=== PATIENT | male | born 1985 | race Caucasian/White ===

== ENCOUNTER 2016-07-03 03:08 | Emergency (ER) | payer MEDICAID ==
[~2016-07-03 03:08] MED LIST: CARAFATE1 G/10 ML PO; CATAPRES0.1 MG PO; HYDROCODON-ACE1 EAC7 PO; HYDROCODONE-APA1 TAB PO; KLONOPIN1 MG PO; LOPRESSOR25 MG PO; NORVASC10 MG PO; NORVASC5 MG PO; PRILOSEC10 M1 PO; PRILOSEC20 MG PO; ROBAXIN500 MG PO; SEROQUEL25 MG PO
== END 2016-07-03 04:48 | disposition home or self-care (01) ==
LOC: D.ER 03:08
DX: M62.838 Other muscle spasm (principal); Z76.5 Malingerer [conscious simulation]; F41.0 Panic disorder [episodic paroxysmal anxiety]; Z20.3 Contact with and (suspected) exposure to rabies

== ENCOUNTER 2016-07-07 12:16 | Emergency (ER) | payer MEDICAID | END 2016-07-07 13:09 | disposition home or self-care (01) | LOC: D.ER 12:16 | DX: F41.9 Anxiety disorder, unspecified (principal); M54.9 Dorsalgia, unspecified; I10 Essential (primary) hypertension ==

== ENCOUNTER 2016-07-08 10:19 | Emergency (ER) | payer MEDICAID | END 2016-07-08 12:14 | disposition home or self-care (01) | LOC: D.ER 10:19 | DX: I10 Essential (primary) hypertension (principal) ==

== ENCOUNTER 2016-07-21 23:14 | Emergency (ER) | payer MEDICAID | END 2016-07-22 00:50 | disposition home or self-care (01) | LOC: D.ER 23:14 | DX: M54.9 Dorsalgia, unspecified (principal); I10 Essential (primary) hypertension; F17.200 Nicotine dependence, unspecified, uncomplicated ==

== ENCOUNTER 2016-07-30 13:55 | Emergency (ER) | payer MEDICAID ==
[2016-07-30 15:19] LABS: BASOPHILS 0.1 % (0.0-2.0); EOSINOPHILS 0.1 % (0-7); HEMATOCRIT 51.4 % (42.0-54.0); HEMOGLOBIN 18.5 g/dL (13.5-17.5); IMMATURE GRANULOCYTES 0.4 % (0-5); LYMPHOCYTES 5.8 % (15-50); MCH 32.2 pg (26.0-34.0); MCV 89.5 fL (80.0-100.0); MEAN PLATELET VOLUME 10.8 fL (7.4-10.4); MONOCYTES 6.5 % (2-11); NEUTROPHILS 87.1 % (40-80); PLATELET COUNT 212 10x3/uL (130-400); RBC 5.74 10x6/uL (4.20-6.10); WBC 19.6 10x3/uL (4.8-10.8)
[2016-07-30 15:30] LABS: ALBUMIN 5.1 g/dL (3.4-5.0); ANION GAP 19.5 mmol/L (8-16); BILIRUBIN - TOTAL 0.33 mg/dL (0.2-1.3); CALCIUM 10.7 mg/dL (8.5-10.1); CARBON DIOXIDE 25.8 mmol/L (21.0-32.0); CREATININE - SERUM 1.9 mg/dL (0.6-1.3); POTASSIUM - SERUM 3.3 mmol/L (3.5-5.1); PROTEIN - SERUM 9.6 g/dL (6.4-8.2)
[2016-07-30 17:00] LABS: MAGNESIUM - SERUM 3.4 mg/dL (1.8-2.4)
== END 2016-07-30 16:45 | disposition home or self-care (01) ==
LOC: D.ER 13:55
PROVIDERS: Emergency Medicine
DX: R56.9 Unspecified convulsions (principal); I10 Essential (primary) hypertension; F17.200 Nicotine dependence, unspecified, uncomplicated

== ENCOUNTER 2016-08-06 12:48 | Emergency (ER) | payer SELFPAY | END 2016-08-06 16:16 | disposition home or self-care (01) | LOC: D.ER 12:48 | DX: Z76.0 Encounter for issue of repeat prescription (principal); I10 Essential (primary) hypertension ==

== ENCOUNTER 2016-08-21 22:21 | Emergency (ER) | payer MEDICAID | END 2016-08-22 01:29 | disposition home or self-care (01) | LOC: D.ER 22:21 | DX: K02.9 Dental caries, unspecified (principal); K08.89 Other specified disorders of teeth and supporting structures; S02.5XXA Fracture of tooth (traumatic), initial encounter for closed fracture; X58.XXXA Exposure to other specified factors, initial encounter; Y93.89 Activity, other specified; Y92.89 Other specified places as the place of occurrence of the external cause; I10 Essential (primary) hypertension ==

== ENCOUNTER → 2016-08-26 21:04 | Emergency (ER) | payer MEDICAID | END | disposition left against medical advice (07) | LOC: D.ER 21:04 | DX: Z02.9 Encounter for administrative examinations, unspecified (principal) ==

== ENCOUNTER 2016-08-26 22:15 | Emergency (ER) | payer MEDICAID | END 2016-08-27 00:30 | disposition home or self-care (01) | LOC: D.ER 22:15 | DX: K02.9 Dental caries, unspecified (principal); K08.89 Other specified disorders of teeth and supporting structures; I10 Essential (primary) hypertension ==

== ENCOUNTER 2016-08-30 14:24 | Emergency (ER) | payer MEDICAID ==
[2016-08-30 15:32] LABS: BASOPHILS 0.1 % (0.0-2.0); EOSINOPHILS 0.1 % (0-7); HEMATOCRIT 49.8 % (42.0-54.0); HEMOGLOBIN 17.4 g/dL (13.5-17.5); IMMATURE GRANULOCYTES 0.4 % (0-5); LYMPHOCYTES 8.2 % (15-50); MCH 31.8 pg (26.0-34.0); MCHC 34.9 g/dL (31.0-37.0); MCV 90.9 fL (80.0-100.0); MEAN PLATELET VOLUME 10.1 fL (7.4-10.4); MONOCYTES 7.8 % (2-11); NEUTROPHILS 83.4 % (40-80); PLATELET COUNT 208 10x3/uL (130-400); RBC 5.48 10x6/uL (4.20-6.10); RDW 12.6 % (11.5-14.5); WBC 19.3 10x3/uL (4.8-10.8)
[2016-08-30 15:47] LABS: APTT 25.9 SECONDS (22.8-39.4); INR 0.93 (0.85-1.17); PROTIME 12.3 SECONDS (11.6-15.0)
[2016-08-31 00:21] LABS: APPEARANCE HAZY (CLEAR); BILIRUBIN 1+ (NEGATIVE); COLOR DK YELLOW (YELLOW); GLUCOSE 50 mg/dL (NEGATIVE); KETONE SMALL mg/dL (NEGATIVE); LEUKOCYTE ESTERASE TRACE (NEGATIVE); NITRITE NEGATIVE (NEGATIVE); PROTEIN TRACE mg/dL (NEGATIVE); UROBILINOGEN NORMAL (NORMAL)
[2016-08-31 00:27] LABS: ALBUMIN 4.6 g/dL (3.4-5.0); ANION GAP 15.9 mmol/L (8-16); BILIRUBIN - TOTAL 0.33 mg/dL (0.2-1.3); CARBON DIOXIDE 31.4 mmol/L (21.0-32.0); CREATININE - SERUM 1.4 mg/dL (0.6-1.3); POTASSIUM - SERUM 3.3 mmol/L (3.5-5.1)
[2016-08-31 00:27] LABS: UDS - AMPHET NEGATIVE QUAL (NEGATIVE); UDS - BARB NEGATIVE QUAL (NEGATIVE); UDS - BENZO POSITIVE QUAL (NEGATIVE); UDS - COCAINE NEGATIVE QUAL (NEGATIVE); UDS - METH NEGATIVE QUAL (NEGATIVE); UDS - OPIATE POSITIVE QUAL (NEGATIVE); UDS - PCP NEGATIVE QUAL (NEGATIVE); UDS - THC POSITIVE QUAL (NEGATIVE)
[2016-08-31 00:44] LABS: AMORPHOUS SEDIMENT >1+ /lpf (NONE SEEN); BACTERIA MANY /hpf (NONE SEEN); EPITHELIAL CELLS 0-5 /hpf (0-5); GRANULAR CAST 0-5 /lpf (NONE SEEN); MUCUS >1+ /lpf (NONE SEEN); RED CELLS - URINE 0-5 /hpf (0-5); WAXY CAST OCC /lpf (NONE SEEN); WHITE CELLS - URINE 0-5 /hpf (0-5)
== END 2016-08-31 01:45 | disposition home or self-care (01) ==
LOC: D.ER 14:24
PROVIDERS: Emergency Medicine
DX: K29.00 Acute gastritis without bleeding (principal); R10.13 Epigastric pain; I10 Essential (primary) hypertension; F17.200 Nicotine dependence, unspecified, uncomplicated; R00.0 Tachycardia, unspecified

== ENCOUNTER 2016-09-08 11:49 | Emergency (ER) | payer MEDICAID | END 2016-09-08 14:05 | disposition home or self-care (01) | LOC: D.ER 11:49 | DX: I10 Essential (primary) hypertension (principal); K27.9 Peptic ulcer, site unspecified, unspecified as acute or chronic, without hemorrhage or perforation; R11.2 Nausea with vomiting, unspecified; F41.9 Anxiety disorder, unspecified; G89.29 Other chronic pain ==

== ENCOUNTER 2016-09-14 20:12 | Emergency (ER) | payer MEDICAID | END 2016-09-14 21:17 | disposition home or self-care (01) | LOC: D.ER 20:12 | DX: K21.9 Gastro-esophageal reflux disease without esophagitis (principal); M54.9 Dorsalgia, unspecified ==

== ENCOUNTER 2016-09-20 10:35 | Emergency (ER) | payer MEDICAID | END 2016-09-20 12:03 | disposition home or self-care (01) | LOC: D.ER 10:35 | DX: R11.10 Vomiting, unspecified (principal); R10.9 Unspecified abdominal pain; G89.29 Other chronic pain; I10 Essential (primary) hypertension; K27.9 Peptic ulcer, site unspecified, unspecified as acute or chronic, without hemorrhage or perforation; K21.9 Gastro-esophageal reflux disease without esophagitis; F17.200 Nicotine dependence, unspecified, uncomplicated ==

== ENCOUNTER 2016-10-17 15:01 | Emergency (ER) | payer MEDICAID | END 2016-10-17 18:37 | disposition home or self-care (01) | LOC: D.ER 15:01 | DX: Z76.0 Encounter for issue of repeat prescription (principal); F17.200 Nicotine dependence, unspecified, uncomplicated; I10 Essential (primary) hypertension; F41.9 Anxiety disorder, unspecified ==

== ENCOUNTER 2016-10-18 08:18 | Emergency (ER) | payer MEDICAID | END 2016-10-18 09:05 | disposition home or self-care (01) | LOC: D.ER 08:18 | DX: K02.9 Dental caries, unspecified (principal); K08.89 Other specified disorders of teeth and supporting structures; F17.200 Nicotine dependence, unspecified, uncomplicated ==

== ENCOUNTER 2016-10-19 21:07 | Emergency (ER) | payer MEDICAID | END 2016-10-19 21:41 | disposition left against medical advice (07) | LOC: D.ER 21:07 | DX: K08.89 Other specified disorders of teeth and supporting structures (principal) ==

== ENCOUNTER 2016-10-24 23:23 | Emergency (ER) | payer MEDICAID | END 2016-10-25 01:04 | disposition home or self-care (01) | LOC: D.ER 23:23 | DX: K02.9 Dental caries, unspecified (principal); K08.89 Other specified disorders of teeth and supporting structures; S02.5XXA Fracture of tooth (traumatic), initial encounter for closed fracture; X58.XXXA Exposure to other specified factors, initial encounter; Y93.89 Activity, other specified; Y92.89 Other specified places as the place of occurrence of the external cause; F17.200 Nicotine dependence, unspecified, uncomplicated; I10 Essential (primary) hypertension; G40.909 Epilepsy, unspecified, not intractable, without status epilepticus; K27.9 Peptic ulcer, site unspecified, unspecified as acute or chronic, without hemorrhage or perforation ==

== ENCOUNTER 2016-10-26 14:35 | Emergency (ER) | payer MEDICAID | END 2016-10-26 14:36 | disposition left against medical advice (07) | LOC: D.ER 14:35 | DX: K08.89 Other specified disorders of teeth and supporting structures (principal) ==

== ENCOUNTER 2016-10-26 21:18 | Emergency (ER) | payer MEDICAID | END 2016-10-27 04:00 | disposition home or self-care (01) | LOC: D.ER 21:18 | DX: K02.9 Dental caries, unspecified (principal); K08.89 Other specified disorders of teeth and supporting structures; K21.9 Gastro-esophageal reflux disease without esophagitis; I10 Essential (primary) hypertension; K27.9 Peptic ulcer, site unspecified, unspecified as acute or chronic, without hemorrhage or perforation; G40.909 Epilepsy, unspecified, not intractable, without status epilepticus ==

== ENCOUNTER 2016-10-27 10:54 | Emergency (ER) | payer MEDICAID | END 2016-10-27 11:30 | disposition left against medical advice (07) | LOC: D.ER 10:54 | DX: Z76.5 Malingerer [conscious simulation] (principal); F17.200 Nicotine dependence, unspecified, uncomplicated ==

== ENCOUNTER 2016-10-29 20:06 | Emergency (ER) | payer MEDICAID | END 2016-10-29 21:57 | disposition home or self-care (01) | LOC: D.ER 20:06 | DX: G89.29 Other chronic pain (principal); K21.9 Gastro-esophageal reflux disease without esophagitis; I10 Essential (primary) hypertension; K27.9 Peptic ulcer, site unspecified, unspecified as acute or chronic, without hemorrhage or perforation; F17.200 Nicotine dependence, unspecified, uncomplicated ==

== ENCOUNTER 2016-10-31 10:31 | Emergency (ER) | payer MEDICAID | END 2016-10-31 11:19 | disposition home or self-care (01) | LOC: D.ER 10:31 | DX: G89.29 Other chronic pain (principal); K21.9 Gastro-esophageal reflux disease without esophagitis; I10 Essential (primary) hypertension; K27.9 Peptic ulcer, site unspecified, unspecified as acute or chronic, without hemorrhage or perforation; F17.200 Nicotine dependence, unspecified, uncomplicated ==

== ENCOUNTER 2016-11-30 09:51 | Emergency (ER) | payer MEDICAID | END 2016-11-30 11:08 | disposition home or self-care (01) | LOC: D.ER 09:51 | DX: S29.012A Strain of muscle and tendon of back wall of thorax, initial encounter (principal); X58.XXXA Exposure to other specified factors, initial encounter; Y93.89 Activity, other specified; Y92.89 Other specified places as the place of occurrence of the external cause; F17.200 Nicotine dependence, unspecified, uncomplicated ==

== ENCOUNTER 2016-12-01 00:06 | Emergency (ER) | payer OTHER ==
[2016-12-01 00:47] LABS: UDS - AMPHET NEGATIVE QUAL (NEGATIVE); UDS - BARB NEGATIVE QUAL (NEGATIVE); UDS - BENZO POSITIVE QUAL (NEGATIVE); UDS - COCAINE NEGATIVE QUAL (NEGATIVE); UDS - METH NEGATIVE QUAL (NEGATIVE); UDS - OPIATE NEGATIVE QUAL (NEGATIVE); UDS - PCP NEGATIVE QUAL (NEGATIVE); UDS - THC NEGATIVE QUAL (NEGATIVE)
== END 2016-12-01 01:15 | disposition home or self-care (01) ==
LOC: D.ER 00:06
PROVIDERS: Family Medicine
DX: M79.1 Myalgia (principal); K21.9 Gastro-esophageal reflux disease without esophagitis; I10 Essential (primary) hypertension; K27.9 Peptic ulcer, site unspecified, unspecified as acute or chronic, without hemorrhage or perforation

== ENCOUNTER 2016-12-02 03:29 | Emergency (ER) | payer MEDICAID | END 2016-12-02 04:17 | disposition home or self-care (01) | LOC: D.ER 03:29 | DX: K08.89 Other specified disorders of teeth and supporting structures (principal); K21.9 Gastro-esophageal reflux disease without esophagitis; I10 Essential (primary) hypertension; K27.9 Peptic ulcer, site unspecified, unspecified as acute or chronic, without hemorrhage or perforation ==

== ENCOUNTER 2016-12-03 11:17 | Emergency (ER) | payer MEDICAID ==
[2016-12-03 12:53] LABS: BASOPHILS 0.1 % (0-2); EOSINOPHILS 0.5 % (0-7); HEMATOCRIT 36.9 % (42.0-54.0); IMMATURE GRANULOCYTES 0.2 % (0-5); LYMPHOCYTES 24.9 % (15-50); MCH 31.3 pg (26.0-34.0); MCHC 35.2 g/dL (31.0-37.0); MCV 88.7 fL (80.0-100.0); MEAN PLATELET VOLUME 10.2 fL (7.4-10.4); MONOCYTES 9.5 % (2-11); NEUTROPHILS 64.8 % (40-80); PLATELET COUNT 190 10x3/uL (130-400); RBC 4.16 10x6/uL (4.20-6.10); RDW 13.5 % (11.5-14.5); WBC 13.7 10x3/uL (4.8-10.8)
== END 2016-12-03 13:30 | disposition home or self-care (01) ==
LOC: D.ER 11:17
PROVIDERS: Nurse Practitioner Family
DX: K04.7 Periapical abscess without sinus (principal); K21.9 Gastro-esophageal reflux disease without esophagitis; I10 Essential (primary) hypertension; K27.9 Peptic ulcer, site unspecified, unspecified as acute or chronic, without hemorrhage or perforation; F17.200 Nicotine dependence, unspecified, uncomplicated

== ENCOUNTER 2016-12-04 11:46 | Emergency (ER) | payer MEDICAID | END 2016-12-04 13:21 | disposition home or self-care (01) | LOC: D.ER 11:46 | DX: L02.01 Cutaneous abscess of face (principal); K21.9 Gastro-esophageal reflux disease without esophagitis; I10 Essential (primary) hypertension; K27.9 Peptic ulcer, site unspecified, unspecified as acute or chronic, without hemorrhage or perforation; F17.200 Nicotine dependence, unspecified, uncomplicated ==

== ENCOUNTER 2016-12-08 16:39 | Emergency (ER) | payer MEDICAID | END 2016-12-08 21:58 | disposition home or self-care (01) | LOC: D.ER 16:39 | DX: K04.7 Periapical abscess without sinus (principal); F17.200 Nicotine dependence, unspecified, uncomplicated ==

== ENCOUNTER 2016-12-09 23:57 | Emergency (ER) | payer MEDICAID ==
[2016-12-10 01:26] LABS: BASOPHILS 0.2 % (0-2); EOSINOPHILS 0.9 % (0-7); HEMATOCRIT 31.5 % (42.0-54.0); IMMATURE GRANULOCYTES 0.1 % (0-5); LYMPHOCYTES 26.2 % (15-50); MCH 30.4 pg (26.0-34.0); MCHC 34.9 g/dL (31.0-37.0); MEAN PLATELET VOLUME 9.4 fL (7.4-10.4); MONOCYTES 13.5 % (2-11); NEUTROPHILS 59.1 % (40-80); PLATELET COUNT 191 10x3/uL (130-400); RBC 3.62 10x6/uL (4.20-6.10); RDW 13.1 % (11.5-14.5); WBC 9.1 10x3/uL (4.8-10.8)
[2016-12-10 01:45] LABS: ALBUMIN 3.2 g/dL (3.4-5.0); ALKALINE PHOSPHATASE 66 U/L (46-116); ALT (SGPT) 25 U/L (10-68); CALC OSMOLALITY 277 mosm/kg (275-300); CALCIUM 8.3 mg/dL (8.5-10.1); CARBON DIOXIDE 23.3 mmol/L (21.0-32.0); CHLORIDE - SERUM 102 mmol/L (98-107); CREATININE - SERUM 1.1 mg/dL (0.6-1.3); GLUCOSE 102 mg/dL (74-106); POTASSIUM - SERUM 3.2 mmol/L (3.5-5.1); PROTEIN - SERUM 6.9 g/dL (6.4-8.2); SODIUM 139 mmol/L (136-145); UREA NITROGEN 12 mg/dL (7-18); eGFR NON AFRICAN AMERICAN 83 mL/min (90-120)
== END 2016-12-10 02:02 | disposition home or self-care (01) ==
LOC: D.ER 23:57
PROVIDERS: Family Medicine
DX: K04.7 Periapical abscess without sinus (principal); K02.9 Dental caries, unspecified; I10 Essential (primary) hypertension

== ENCOUNTER 2016-12-12 12:54 | Emergency (ER) | payer MEDICAID | END 2016-12-12 14:00 | disposition home or self-care (01) | LOC: D.ER 12:54 | DX: K04.7 Periapical abscess without sinus (principal); I10 Essential (primary) hypertension ==

== ENCOUNTER 2016-12-17 16:24 | Emergency (ER) | payer MEDICAID | END 2016-12-17 19:14 | disposition home or self-care (01) | LOC: D.ER 16:24 | DX: S02.5XXA Fracture of tooth (traumatic), initial encounter for closed fracture (principal); F17.200 Nicotine dependence, unspecified, uncomplicated ==

== ENCOUNTER → 2016-12-20 14:05 | Emergency (ER) | payer MEDICAID | END | disposition left against medical advice (07) | LOC: D.ER 14:05 | DX: R60.0 Localized edema (principal) ==

== ENCOUNTER 2017-01-24 11:49 | Emergency (ER) | payer MEDICAID | END 2017-01-24 12:05 | disposition left against medical advice (07) | LOC: D.ER 11:49 | DX: M54.5 Low back pain (principal) ==

== ENCOUNTER 2017-01-27 15:45 | Emergency (ER) | payer MEDICAID | END 2017-01-27 17:53 | disposition home or self-care (01) | LOC: D.ER 15:45 | DX: S29.8XXA Other specified injuries of thorax, initial encounter (principal); X58.XXXA Exposure to other specified factors, initial encounter; Y93.89 Activity, other specified; Y92.89 Other specified places as the place of occurrence of the external cause ==

== ENCOUNTER 2017-01-27 22:57 | Emergency (ER) | payer MEDICAID | END 2017-01-27 23:58 | disposition home or self-care (01) | LOC: D.ER 22:57 | DX: S20.212A Contusion of left front wall of thorax, initial encounter (principal); V49.9XXA Car occupant (driver) (passenger) injured in unspecified traffic accident, initial encounter; Y93.89 Activity, other specified; Y92.410 Unspecified street and highway as the place of occurrence of the external cause; I10 Essential (primary) hypertension ==

== ENCOUNTER 2017-02-14 20:40 | Emergency (ER) | payer MEDICAID | END 2017-02-14 20:52 | disposition left against medical advice (07) | LOC: D.ER 20:40 | DX: M54.5 Low back pain (principal) ==

== ENCOUNTER 2017-03-12 19:13 | Emergency (ER) | payer MEDICAID ==
[2017-03-12 19:32] LABS: BASOPHILS 0.2 % (0-2); EOSINOPHILS 2.1 % (0-7); HEMATOCRIT 39.1 % (42.0-54.0); HEMOGLOBIN 13.8 g/dL (13.5-17.5); IMMATURE GRANULOCYTES 0.6 % (0-5); LYMPHOCYTES 49.4 % (15-50); MCH 30.6 pg (26.0-34.0); MCHC 35.3 g/dL (31.0-37.0); MCV 86.7 fL (80.0-100.0); MEAN PLATELET VOLUME 10.3 fL (7.4-10.4); MONOCYTES 7.8 % (2-11); NEUTROPHILS 39.9 % (40-80); PLATELET COUNT 164 10x3/uL (130-400); RBC 4.51 10x6/uL (4.20-6.10)
[2017-03-12 19:46] LABS: APPEARANCE CLEAR (CLEAR); BILIRUBIN NEGATIVE (NEGATIVE); COLOR YELLOW (YELLOW); GLUCOSE NEGATIVE (NEGATIVE); KETONE NEGATIVE (NEGATIVE); NITRITE NEGATIVE (NEGATIVE); PROTEIN NEGATIVE (NEGATIVE); SPECIFIC GRAVITY 1.015 (1.005-1.020); UROBILINOGEN NORMAL (NORMAL)
[2017-03-12 19:49] LABS: ALBUMIN 3.4 g/dL (3.4-5.0); ALKALINE PHOSPHATASE 54 U/L (46-116); ALT (SGPT) 65 U/L (10-68); CALC OSMOLALITY 280 mosm/kg (275-300); CALCIUM 8.5 mg/dL (8.5-10.1); CHLORIDE - SERUM 106 mmol/L (98-107); CREATININE - SERUM 1.2 mg/dL (0.6-1.3); GLUCOSE 98 mg/dL (74-106); PROTEIN - SERUM 5.8 g/dL (6.4-8.2); SODIUM 140 mmol/L (136-145); UREA NITROGEN 18 mg/dL (7-18); eGFR NON AFRICAN AMERICAN 75 mL/min (90-120)
[2017-03-12 19:50] LABS: UDS - AMPHET NEGATIVE QUAL (NEGATIVE); UDS - BARB NEGATIVE QUAL (NEGATIVE); UDS - BENZO NEGATIVE QUAL (NEGATIVE); UDS - COCAINE NEGATIVE QUAL (NEGATIVE); UDS - OPIATE POSITIVE QUAL (NEGATIVE); UDS - PCP NEGATIVE QUAL (NEGATIVE); UDS - THC POSITIVE QUAL (NEGATIVE)
== END 2017-03-12 20:18 | disposition home or self-care (01) ==
LOC: D.ER 19:13
PROVIDERS: Emergency Medicine
DX: F12.10 Cannabis abuse, uncomplicated (principal); I10 Essential (primary) hypertension; F17.200 Nicotine dependence, unspecified, uncomplicated

== ENCOUNTER 2017-03-17 17:11 | Emergency (ER) | payer MEDICAID | END 2017-03-17 18:16 | disposition home or self-care (01) | LOC: D.ER 17:11 | DX: I10 Essential (primary) hypertension (principal) ==

== ENCOUNTER 2017-05-08 10:44 | Emergency (ER) | payer MEDICAID ==
[2017-05-08 11:23] LABS: BASOPHILS 0.3 % (0-2); EOSINOPHILS 1.3 % (0-7); HEMATOCRIT 39.1 % (42.0-54.0); HEMOGLOBIN 13.4 g/dL (13.5-17.5); IMMATURE GRANULOCYTES 0.1 % (0-5); LYMPHOCYTES 35.9 % (15-50); MCHC 34.3 g/dL (31.0-37.0); MCV 90.5 fL (80.0-100.0); MEAN PLATELET VOLUME 9.9 fL (7.4-10.4); MONOCYTES 9.2 % (2-11); NEUTROPHILS 53.2 % (40-80); PLATELET COUNT 136 10x3/uL (130-400); RBC 4.32 10x6/uL (4.20-6.10); RDW 14.3 % (11.5-14.5); WBC 6.9 10x3/uL (4.8-10.8)
[2017-05-08 11:33] LABS: APPEARANCE CLEAR (CLEAR); BILIRUBIN NEGATIVE (NEGATIVE); COLOR STRAW (YELLOW); GLUCOSE NEGATIVE (NEGATIVE); KETONE NEGATIVE (NEGATIVE); NITRITE NEGATIVE (NEGATIVE); PROTEIN NEGATIVE (NEGATIVE); UROBILINOGEN NORMAL (NORMAL)
[2017-05-08 11:46] LABS: ALBUMIN 3.3 g/dL (3.4-5.0); ALKALINE PHOSPHATASE 71 U/L (46-116); ALT (SGPT) 63 U/L (10-68); CALC OSMOLALITY 280 mosm/kg (275-300); CALCIUM 8.4 mg/dL (8.5-10.1); CHLORIDE - SERUM 105 mmol/L (98-107); GLUCOSE 92 mg/dL (74-106); POTASSIUM - SERUM 4.1 mmol/L (3.5-5.1); PROTEIN - SERUM 6.2 g/dL (6.4-8.2); SODIUM 139 mmol/L (136-145); UREA NITROGEN 20 mg/dL (7-18); eGFR NON AFRICAN AMERICAN > 90 mL/min (90-120)
[2017-05-08 12:03] LABS: UDS - AMPHET NEGATIVE QUAL (NEGATIVE); UDS - BARB NEGATIVE QUAL (NEGATIVE); UDS - BENZO NEGATIVE QUAL (NEGATIVE); UDS - COCAINE NEGATIVE QUAL (NEGATIVE); UDS - OPIATE NEGATIVE QUAL (NEGATIVE); UDS - PCP NEGATIVE QUAL (NEGATIVE); UDS - THC POSITIVE QUAL (NEGATIVE)
== END 2017-05-08 17:24 | disposition home or self-care (01) ==
LOC: D.ER 10:44
PROVIDERS: Emergency Medicine
DX: R45.851 Suicidal ideations (principal)

== ENCOUNTER 2017-06-06 16:33 | Emergency (ER) | payer MEDICAID | END 2017-06-06 17:55 | disposition left against medical advice (07) | LOC: D.ER 16:33 | DX: K08.89 Other specified disorders of teeth and supporting structures (principal) ==

== ENCOUNTER 2017-06-22 21:01 | Emergency (ER) | payer MEDICAID | END 2017-06-22 22:15 | disposition home or self-care (01) | LOC: D.ER 21:01 | DX: K04.7 Periapical abscess without sinus (principal); K08.89 Other specified disorders of teeth and supporting structures; F17.200 Nicotine dependence, unspecified, uncomplicated ==

== ENCOUNTER 2017-07-01 22:36 | Emergency (ER) | payer MEDICAID | END 2017-07-01 23:33 | disposition home or self-care (01) | LOC: D.ER 22:36 | DX: K02.9 Dental caries, unspecified (principal); K08.89 Other specified disorders of teeth and supporting structures; S02.5XXA Fracture of tooth (traumatic), initial encounter for closed fracture; X58.XXXA Exposure to other specified factors, initial encounter; Y93.89 Activity, other specified; Y92.89 Other specified places as the place of occurrence of the external cause ==

== ENCOUNTER 2017-07-04 18:13 | Emergency (ER) | payer MEDICAID | END 2017-07-04 23:55 | disposition home or self-care (01) | LOC: D.ER 18:13 | DX: K08.89 Other specified disorders of teeth and supporting structures (principal); K02.9 Dental caries, unspecified; K05.10 Chronic gingivitis, plaque induced ==

== ENCOUNTER 2017-07-21 22:09 | Emergency (ER) | payer MEDICAID | END 2017-07-22 01:24 | disposition home or self-care (01) | LOC: D.ER 22:09 | DX: K08.89 Other specified disorders of teeth and supporting structures (principal); F17.200 Nicotine dependence, unspecified, uncomplicated ==

== ENCOUNTER 2017-07-23 16:52 | Emergency (ER) | payer MEDICAID | END 2017-07-23 17:35 | disposition home or self-care (01) | LOC: D.ER 16:52 | DX: K02.9 Dental caries, unspecified (principal); K08.89 Other specified disorders of teeth and supporting structures; F17.200 Nicotine dependence, unspecified, uncomplicated ==

== ENCOUNTER 2017-08-07 00:32 | Emergency (ER) | payer MEDICAID | END 2017-08-07 01:15 | disposition home or self-care (01) | LOC: D.ER 00:32 | DX: K02.9 Dental caries, unspecified (principal); K08.89 Other specified disorders of teeth and supporting structures; K05.10 Chronic gingivitis, plaque induced; F17.200 Nicotine dependence, unspecified, uncomplicated ==

== ENCOUNTER 2017-09-16 22:14 | Emergency (ER) | payer MEDICAID | END 2017-09-17 01:46 | disposition home or self-care (01) | LOC: D.ER 22:14 | DX: Z76.0 Encounter for issue of repeat prescription (principal); F17.200 Nicotine dependence, unspecified, uncomplicated ==

== ENCOUNTER 2017-09-19 20:35 | Emergency (ER) | payer MEDICAID ==
[2017-09-19 22:41] LABS: BASOPHILS 0.2 % (0-2); EOSINOPHILS 1.1 % (0-7); HEMATOCRIT 39.8 % (42.0-54.0); IMMATURE GRANULOCYTES 0.2 % (0-5); LYMPHOCYTES 25.4 % (15-50); MCHC 35.2 g/dL (31.0-37.0); MCV 88.1 fL (80.0-100.0); MEAN PLATELET VOLUME 10.6 fL (7.4-10.4); MONOCYTES 8.8 % (2-11); NEUTROPHILS 64.3 % (40-80); RBC 4.52 10x6/uL (4.20-6.10); RDW 13.4 % (11.5-14.5); WBC 8.2 10x3/uL (4.8-10.8)
[2017-09-19 22:55] LABS: ANION GAP 15.3 mmol/L (8-16); BILIRUBIN - TOTAL 0.15 mg/dL (0.2-1.3); CARBON DIOXIDE 25.1 mmol/L (21.0-32.0); CREATININE - SERUM 1.2 mg/dL (0.6-1.3); POTASSIUM - SERUM 3.4 mmol/L (3.5-5.1); PROTEIN - SERUM 7.7 g/dL (6.4-8.2)
[2017-09-19 22:58] LABS: PLATELET COUNT 145 10x3/uL (130-400)
[2017-09-19 23:45] LABS: APPEARANCE CLEAR (CLEAR); BILIRUBIN NEGATIVE (NEGATIVE); COLOR YELLOW (YELLOW); GLUCOSE NEGATIVE (NEGATIVE); KETONE NEGATIVE (NEGATIVE); NITRITE NEGATIVE (NEGATIVE); PROTEIN NEGATIVE (NEGATIVE); UROBILINOGEN NORMAL (NORMAL)
[2017-09-19 23:52] LABS: UDS - AMPHET NEGATIVE QUAL (NEGATIVE); UDS - BARB NEGATIVE QUAL (NEGATIVE); UDS - BENZO POSITIVE QUAL (NEGATIVE); UDS - COCAINE NEGATIVE QUAL (NEGATIVE); UDS - OPIATE NEGATIVE QUAL (NEGATIVE); UDS - PCP NEGATIVE QUAL (NEGATIVE); UDS - THC POSITIVE QUAL (NEGATIVE)
== END 2017-09-20 02:01 | disposition home or self-care (01) ==
LOC: D.ER 20:35
PROVIDERS: Family Medicine
DX: K04.7 Periapical abscess without sinus (principal)

== ENCOUNTER 2017-09-29 18:00 | Emergency (ER) | payer MEDICAID | END 2017-09-29 19:00 | disposition home or self-care (01) | LOC: D.ER 18:00 | DX: K02.9 Dental caries, unspecified (principal); K05.10 Chronic gingivitis, plaque induced; S02.5XXA Fracture of tooth (traumatic), initial encounter for closed fracture; X58.XXXA Exposure to other specified factors, initial encounter; Y93.9 Activity, unspecified; Y92.9 Unspecified place or not applicable ==

== ENCOUNTER 2017-10-18 17:38 | Emergency (ER) | payer MEDICAID | END 2017-10-18 19:07 | disposition home or self-care (01) | LOC: D.ER 17:38 | DX: K04.7 Periapical abscess without sinus (principal); K02.9 Dental caries, unspecified ==

== ENCOUNTER 2017-11-07 05:57 | Emergency (ER) | payer MEDICAID ==
[~2017-11-07] VITALS: Ht 180.3 cm; Wt 81.8 kg
[2017-11-07 06:02] VITALS: Ht 180.3 cm; Wt 81.8 kg
[2017-11-07] MEDS ORDERED: PROZAC10 MG (06:05)
[2017-11-07 06:56] VITALS: BP 138/76
[2017-11-07] MEDS ORDERED: BACTRIM DS TABL1 TAB PO (07:26)
[2017-11-07] MEDS ORDERED: KEPPRA500 MG PO (07:27)
[2017-11-07] MEDS ORDERED: MOBIC7.5 MG PO (13:46)
== END 2017-11-07 07:40 | disposition home or self-care (01) ==
LOC: D.ER 05:57
DX: K02.9 Dental caries, unspecified (principal); H61.21 Impacted cerumen, right ear; K08.89 Other specified disorders of teeth and supporting structures; Z86.69 Personal history of other diseases of the nervous system and sense organs; Z86.59 Personal history of other mental and behavioral disorders; K21.9 Gastro-esophageal reflux disease without esophagitis; F17.200 Nicotine dependence, unspecified, uncomplicated

== ENCOUNTER 2017-11-07 12:33 | Emergency (ER) | payer MEDICAID ==
[~2017-11-07] VITALS: Ht 180.3 cm; Wt 81.8 kg
[~2017-11-07 12:33] MED LIST changes: +BACTRIM DS TABL1 TAB PO; +KEPPRA500 MG PO; +PROZAC10 MG
[2017-11-07 12:41] VITALS: BP 113/62; Ht 180.3 cm; Wt 81.8 kg
[2017-11-07] MEDS ORDERED: MOBIC7.5 MG PO (13:46)
== END 2017-11-07 14:12 | disposition home or self-care (01) ==
LOC: D.ER 12:33
DX: G40.909 Epilepsy, unspecified, not intractable, without status epilepticus (principal); K08.89 Other specified disorders of teeth and supporting structures; I10 Essential (primary) hypertension; F17.200 Nicotine dependence, unspecified, uncomplicated

== ENCOUNTER 2017-11-09 22:54 | Emergency (ER) | payer MEDICAID ==
[~2017-11-09] VITALS: Ht 180.3 cm; Wt 81.8 kg
[~2017-11-09 22:54] MED LIST changes: +MOBIC7.5 MG PO
[2017-11-09 23:03] VITALS: Ht 180.3 cm; Wt 81.8 kg
[2017-11-09] MEDS ORDERED: SEROQUEL XR300 MG PO (23:08)
[2017-11-10 02:09] VITALS: BP 126/84
== END 2017-11-10 02:10 | disposition home or self-care (01) ==
LOC: D.ER 22:54
DX: R07.9 Chest pain, unspecified (principal); R51 Headache; R10.9 Unspecified abdominal pain; I10 Essential (primary) hypertension; F17.200 Nicotine dependence, unspecified, uncomplicated

== ENCOUNTER 2017-11-10 03:08 | Emergency (ER) | payer MEDICAID ==
[~2017-11-10] VITALS: Ht 180.3 cm; Wt 81.8 kg
[~2017-11-10 03:08] MED LIST changes: +SEROQUEL XR300 MG PO
[2017-11-10 03:18] VITALS: BP 109/51; Ht 180.3 cm; Wt 81.8 kg
== END 2017-11-10 04:10 | disposition home or self-care (01) ==
LOC: D.ER 03:08
DX: Z76.5 Malingerer [conscious simulation] (principal)

== ENCOUNTER 2017-11-15 12:44 | Emergency (ER) | payer MEDICAID ==
[~2017-11-15] VITALS: Ht 180.3 cm; Wt 78.2 kg
[2017-11-15 12:55] VITALS: Ht 180.3 cm; Wt 78.2 kg
[2017-11-15] MEDS ORDERED: VISTARIL25 MG PO (14:11)
[2017-11-15] MEDS ORDERED: LOPRESSOR25 MG PO (14:11)
[2017-11-15 14:17] VITALS: BP 110/068
== END 2017-11-15 14:17 | disposition home or self-care (01) ==
LOC: D.ER 12:44
DX: Z76.0 Encounter for issue of repeat prescription (principal); F41.9 Anxiety disorder, unspecified

== ENCOUNTER 2017-12-10 19:24 | Emergency (ER) | payer MEDICAID ==
[~2017-12-10] VITALS: Ht 180.3 cm; Wt 81.8 kg
[~2017-12-10 19:24] MED LIST changes: +VISTARIL25 MG PO
[2017-12-10 19:31] VITALS: Ht 180.3 cm; Wt 81.8 kg
[2017-12-10] MEDS ORDERED: METOPROLOL TART50 MG PO (21:18)
[2017-12-10 21:52] VITALS: BP 152/91
== END 2017-12-10 21:53 | disposition home or self-care (01) ==
LOC: D.ER 19:24
DX: F41.9 Anxiety disorder, unspecified (principal); K02.9 Dental caries, unspecified; K08.89 Other specified disorders of teeth and supporting structures; I10 Essential (primary) hypertension; F17.200 Nicotine dependence, unspecified, uncomplicated

== ENCOUNTER 2017-12-13 19:41 | Emergency (ER) | payer MEDICAID ==
[~2017-12-13] VITALS: Ht 180.3 cm; Wt 81.8 kg
[~2017-12-13 19:41] MED LIST changes: +METOPROLOL TART50 MG PO
[2017-12-13 19:51] VITALS: Ht 180.3 cm; Wt 81.8 kg
[2017-12-13] MEDS ORDERED: TORADOL10 MG PO (22:04)
[2017-12-13 22:20] VITALS: BP 129/78
== END 2017-12-13 22:20 | disposition home or self-care (01) ==
LOC: D.ER 19:41
DX: K02.9 Dental caries, unspecified (principal); S02.5XXA Fracture of tooth (traumatic), initial encounter for closed fracture; X58.XXXA Exposure to other specified factors, initial encounter; Y93.89 Activity, other specified; Y92.019 Unspecified place in single-family (private) house as the place of occurrence of the external cause; R51 Headache; M54.2 Cervicalgia; I10 Essential (primary) hypertension; F17.200 Nicotine dependence, unspecified, uncomplicated

== ENCOUNTER 2017-12-18 14:39 | Emergency (ER) | payer MEDICAID ==
[~2017-12-18] VITALS: Ht 180.3 cm; Wt 81.8 kg
[~2017-12-18 14:39] MED LIST changes: +TORADOL10 MG PO
[2017-12-18 15:22] VITALS: BP 119/69; Ht 180.3 cm; Wt 81.8 kg
[2017-12-20] MEDS ORDERED: BACTRIM DS TABL1 TAB PO (05:04)
[2017-12-20] MEDS ORDERED: TORADOL10 MG PO (16:51)
== END 2017-12-19 09:24 | disposition left against medical advice (07) ==
LOC: D.ER 14:39
DX: K02.9 Dental caries, unspecified (principal); I10 Essential (primary) hypertension; F17.200 Nicotine dependence, unspecified, uncomplicated

== ENCOUNTER 2017-12-20 03:37 | Emergency (ER) | payer MEDICAID ==
[~2017-12-20] VITALS: Ht 180.3 cm; Wt 81.8 kg
[2017-12-20 03:51] VITALS: Ht 180.3 cm; Wt 81.8 kg
[2017-12-20] MEDS ORDERED: BACTRIM DS TABL1 TAB PO (05:04)
[2017-12-20 06:51] VITALS: BP 118/72
[2017-12-20] MEDS ORDERED: TORADOL10 MG PO (16:51)
== END 2017-12-20 05:12 | disposition home or self-care (01) ==
LOC: D.ER 03:37
DX: K02.9 Dental caries, unspecified (principal); I10 Essential (primary) hypertension; F17.200 Nicotine dependence, unspecified, uncomplicated

== ENCOUNTER 2017-12-20 14:51 | Emergency (ER) | payer MEDICAID ==
[~2017-12-20] VITALS: Ht 180.3 cm; Wt 81.8 kg
[2017-12-20 15:22] VITALS: BP 114/67; Ht 180.3 cm; Wt 81.8 kg
[2017-12-20] MEDS ORDERED: TORADOL10 MG PO (16:51)
== END 2017-12-20 17:08 | disposition home or self-care (01) ==
LOC: D.ER 14:51
DX: K02.9 Dental caries, unspecified (principal); S02.5XXA Fracture of tooth (traumatic), initial encounter for closed fracture; X58.XXXA Exposure to other specified factors, initial encounter; Y93.89 Activity, other specified; Y92.019 Unspecified place in single-family (private) house as the place of occurrence of the external cause; K08.89 Other specified disorders of teeth and supporting structures; F17.200 Nicotine dependence, unspecified, uncomplicated

== ENCOUNTER 2017-12-23 07:25 | Emergency (ER) | payer MEDICAID ==
[~2017-12-23] VITALS: Ht 180.3 cm; Wt 81.8 kg
[2017-12-23 07:26] VITALS: BP 112/60; Ht 180.3 cm; Wt 81.8 kg
== END 2017-12-23 08:00 | disposition left against medical advice (07) ==
LOC: D.ER 07:25
DX: S00.83XA Contusion of other part of head, initial encounter (principal); S20.219A Contusion of unspecified front wall of thorax, initial encounter; Y04.2XXA Assault by strike against or bumped into by another person, initial encounter; Y93.89 Activity, other specified; Y92.89 Other specified places as the place of occurrence of the external cause; K02.9 Dental caries, unspecified; K05.10 Chronic gingivitis, plaque induced; I10 Essential (primary) hypertension; F17.200 Nicotine dependence, unspecified, uncomplicated

== ENCOUNTER 2017-12-25 12:49 | Emergency (ER) | payer MEDICAID ==
[~2017-12-25] VITALS: Ht 180.3 cm; Wt 81.8 kg
[2017-12-25 12:59] VITALS: Ht 180.3 cm; Wt 81.8 kg
[2017-12-25 14:02] LABS: APPEARANCE CLEAR (CLEAR); BILIRUBIN NEGATIVE (NEGATIVE); COLOR YELLOW (YELLOW); GLUCOSE NEGATIVE (NEGATIVE); KETONE NEGATIVE (NEGATIVE); NITRITE NEGATIVE (NEGATIVE); PROTEIN NEGATIVE (NEGATIVE); SPECIFIC GRAVITY 1.015 (1.005-1.020); UROBILINOGEN NORMAL (NORMAL)
[2017-12-25] MEDS ORDERED: OMNICEF300 MG PO (14:03)
[2017-12-25 14:06] VITALS: BP 109/62
[2017-12-26] MEDS ORDERED: NORVASC10 MG PO (07:34)
== END 2017-12-25 14:10 | disposition home or self-care (01) ==
LOC: D.ER 12:49
PROVIDERS: Family Medicine
DX: S00.83XA Contusion of other part of head, initial encounter (principal); Y04.2XXA Assault by strike against or bumped into by another person, initial encounter; Y93.89 Activity, other specified; Y92.89 Other specified places as the place of occurrence of the external cause; K04.7 Periapical abscess without sinus; K02.9 Dental caries, unspecified

== ENCOUNTER 2017-12-26 07:17 | Emergency (ER) | payer MEDICAID ==
[~2017-12-26] VITALS: Ht 180.3 cm; Wt 81.8 kg
[~2017-12-26 07:17] MED LIST changes: +OMNICEF300 MG PO
[2017-12-26 07:23] VITALS: Ht 180.3 cm; Wt 81.8 kg
[2017-12-26] MEDS ORDERED: NORVASC10 MG PO (07:34)
[2017-12-26 08:14] LABS: APPEARANCE CLEAR (CLEAR); BILIRUBIN NEGATIVE (NEGATIVE); COLOR YELLOW (YELLOW); GLUCOSE NEGATIVE (NEGATIVE); KETONE NEGATIVE (NEGATIVE); NITRITE NEGATIVE (NEGATIVE); PROTEIN NEGATIVE (NEGATIVE); UROBILINOGEN NORMAL (NORMAL)
[2017-12-26 08:17] LABS: BASOPHILS 0.2 % (0-2); EOSINOPHILS 1.4 % (0-7); HEMATOCRIT 38.2 % (42.0-54.0); HEMOGLOBIN 13.1 g/dL (13.5-17.5); IMMATURE GRANULOCYTES 0.2 % (0-5); LYMPHOCYTES 29.9 % (15-50); MCH 30.6 pg (26.0-34.0); MCHC 34.3 g/dL (31.0-37.0); MCV 89.3 fL (80.0-100.0); MONOCYTES 8.4 % (2-11); NEUTROPHILS 59.9 % (40-80); PLATELET COUNT 137 10x3/uL (130-400); RBC 4.28 10x6/uL (4.20-6.10); RDW 14.9 % (11.5-14.5)
[2017-12-26 08:36] LABS: UDS - AMPHET NEGATIVE QUAL (NEGATIVE); UDS - BARB NEGATIVE QUAL (NEGATIVE); UDS - BENZO POSITIVE QUAL (NEGATIVE); UDS - COCAINE NEGATIVE QUAL (NEGATIVE); UDS - OPIATE NEGATIVE QUAL (NEGATIVE); UDS - PCP NEGATIVE QUAL (NEGATIVE); UDS - THC POSITIVE QUAL (NEGATIVE)
[2017-12-26 08:40] LABS: ALBUMIN 3.5 g/dL (3.4-5.0); ALKALINE PHOSPHATASE 82 U/L (46-116); ALT (SGPT) 80 U/L (10-68); BILIRUBIN - TOTAL 0.24 mg/dL (0.2-1.3); CALC OSMOLALITY 282 mosm/kg (275-300); CALCIUM 8.5 mg/dL (8.5-10.1); CARBON DIOXIDE 29.8 mmol/L (21.0-32.0); CHLORIDE - SERUM 106 mmol/L (98-107); CREATININE - SERUM 0.9 mg/dL (0.6-1.3); GLUCOSE 103 mg/dL (74-106); PROTEIN - SERUM 6.7 g/dL (6.4-8.2); SODIUM 142 mmol/L (136-145); UREA NITROGEN 13 mg/dL (7-18); eGFR NON AFRICAN AMERICAN > 90 mL/min (90-120)
[2017-12-26 17:54] VITALS: BP 121/077
== END 2017-12-26 19:17 ==
LOC: D.ER 07:17
PROVIDERS: Family Medicine
DX: R45.851 Suicidal ideations (principal); I10 Essential (primary) hypertension; F17.200 Nicotine dependence, unspecified, uncomplicated

== ENCOUNTER 2018-01-05 21:38 | Emergency (ER) | payer MEDICAID ==
[~2018-01-05] VITALS: Ht 180.3 cm; Wt 54.5 kg
[2018-01-05 21:53] VITALS: Ht 180.3 cm; Wt 54.5 kg
[2018-01-05] MEDS ORDERED: KEFLEX500 MG PO (22:02)
[2018-01-05] MEDS ORDERED: BUPROPION HCL100 MG PO (22:03)
[2018-01-05] MEDS ORDERED: LITHIUM CARBON300 MG PO (22:03)
[2018-01-05] MEDS ORDERED: NEURONTIN 300300 MG PO (22:04)
[2018-01-05 22:21] LABS: APPEARANCE CLEAR (CLEAR); COLOR YELLOW (YELLOW)
[2018-01-05 22:22] LABS: BILIRUBIN NEGATIVE (NEGATIVE); GLUCOSE NEGATIVE (NEGATIVE); KETONE NEGATIVE (NEGATIVE); NITRITE NEGATIVE (NEGATIVE); PROTEIN NEGATIVE (NEGATIVE); SPECIFIC GRAVITY 1.015 (1.005-1.020); UROBILINOGEN NORMAL (NORMAL)
[2018-01-05 22:23] LABS: BACTERIA FEW /hpf (NONE SEEN); WHITE CELLS - URINE 0-5 /hpf (0-5)
[2018-01-05 22:32] LABS: BASOPHILS 0.3 % (0-2); EOSINOPHILS 2.1 % (0-7); HEMATOCRIT 43.8 % (42.0-54.0); HEMOGLOBIN 15.1 g/dL (13.5-17.5); IMMATURE GRANULOCYTES 0.3 % (0-5); LYMPHOCYTES 34.2 % (15-50); MCH 30.9 pg (26.0-34.0); MCHC 34.5 g/dL (31.0-37.0); MCV 89.8 fL (80.0-100.0); MONOCYTES 6.3 % (2-11); NEUTROPHILS 56.8 % (40-80); PLATELET COUNT 189 10x3/uL (130-400); RBC 4.88 10x6/uL (4.20-6.10); RDW 14.5 % (11.5-14.5); WBC 9.8 10x3/uL (4.8-10.8)
[2018-01-05 22:47] LABS: UDS - AMPHET NEGATIVE QUAL (NEGATIVE); UDS - BARB NEGATIVE QUAL (NEGATIVE); UDS - BENZO POSITIVE QUAL (NEGATIVE); UDS - COCAINE NEGATIVE QUAL (NEGATIVE); UDS - OPIATE NEGATIVE QUAL (NEGATIVE); UDS - PCP NEGATIVE QUAL (NEGATIVE); UDS - THC POSITIVE QUAL (NEGATIVE)
[2018-01-05 23:02] LABS: ANION GAP 9.6 mmol/L (8-16); CALCIUM 8.7 mg/dL (8.5-10.1); CARBON DIOXIDE 28.5 mmol/L (21.0-32.0); CREATININE - SERUM 1.3 mg/dL (0.6-1.3); POTASSIUM - SERUM 4.1 mmol/L (3.5-5.1); THYROID STIMULATING HORMONE 2.62 uIU/mL (0.36-3.74)
[2018-01-05 23:23] LABS: LITHIUM 1.02 mmol/L (0.60-1.20); SALICYLATES 3.7 mg/dL (2.8-20.0)
[2018-01-05 23:50] VITALS: BP 132/84
== END 2018-01-05 23:52 | disposition home or self-care (01) ==
LOC: D.ER 21:38
PROVIDERS: Emergency Medicine
DX: F41.9 Anxiety disorder, unspecified (principal); I10 Essential (primary) hypertension; F17.200 Nicotine dependence, unspecified, uncomplicated

== ENCOUNTER 2018-01-22 19:06 | Emergency (ER) | payer MEDICAID ==
[~2018-01-22] VITALS: Ht 180.3 cm; Wt 77.3 kg
[~2018-01-22 19:06] MED LIST changes: +BUPROPION HCL100 MG PO; +KEFLEX500 MG PO; +LITHIUM CARBON300 MG PO; +NEURONTIN 300300 MG PO
[2018-01-22 19:08] VITALS: Ht 180.3 cm; Wt 77.3 kg
[2018-01-22 19:44] LABS: BASOPHILS 0.4 % (0-2); EOSINOPHILS 1.5 % (0-7); HEMATOCRIT 39.7 % (42.0-54.0); HEMOGLOBIN 13.6 g/dL (13.5-17.5); IMMATURE GRANULOCYTES 0.2 % (0-5); LYMPHOCYTES 34.4 % (15-50); MCH 30.9 pg (26.0-34.0); MCHC 34.3 g/dL (31.0-37.0); MCV 90.2 fL (80.0-100.0); MEAN PLATELET VOLUME 10.7 fL (7.4-10.4); MONOCYTES 15.6 % (2-11); NEUTROPHILS 47.9 % (40-80); PLATELET COUNT 133 10x3/uL (130-400); RDW 14.1 % (11.5-14.5); WBC 5.3 10x3/uL (4.8-10.8)
[2018-01-22 20:11] LABS: ALBUMIN 3.5 g/dL (3.4-5.0); ALKALINE PHOSPHATASE 88 U/L (46-116); ALT (SGPT) 49 U/L (10-68); BILIRUBIN - TOTAL 0.23 mg/dL (0.2-1.3); CALC OSMOLALITY 280 mosm/kg (275-300); CALCIUM 8.5 mg/dL (8.5-10.1); CARBON DIOXIDE 27.5 mmol/L (21.0-32.0); CHLORIDE - SERUM 107 mmol/L (98-107); POTASSIUM - SERUM 3.9 mmol/L (3.5-5.1); PROTEIN - SERUM 6.5 g/dL (6.4-8.2); SODIUM 140 mmol/L (136-145); UREA NITROGEN 14 mg/dL (7-18); eGFR NON AFRICAN AMERICAN > 90 mL/min (90-120)
[2018-01-22 20:12] LABS: GLUCOSE 112 mg/dL (74-106)
[2018-01-22 20:43] LABS: COLOR YELLOW (YELLOW)
[2018-01-22 20:44] LABS: APPEARANCE CLEAR (CLEAR); BILIRUBIN NEGATIVE (NEGATIVE); GLUCOSE NEGATIVE (NEGATIVE); KETONE NEGATIVE (NEGATIVE); NITRITE NEGATIVE (NEGATIVE); PROTEIN NEGATIVE (NEGATIVE); SPECIFIC GRAVITY 1.015 (1.005-1.020); UROBILINOGEN NORMAL (NORMAL)
[2018-01-22 20:47] LABS: UDS - AMPHET NEGATIVE QUAL (NEGATIVE); UDS - BARB NEGATIVE QUAL (NEGATIVE); UDS - BENZO NEGATIVE QUAL (NEGATIVE); UDS - COCAINE NEGATIVE QUAL (NEGATIVE); UDS - OPIATE NEGATIVE QUAL (NEGATIVE); UDS - PCP NEGATIVE QUAL (NEGATIVE); UDS - THC NEGATIVE QUAL (NEGATIVE)
[2018-01-23 00:44] VITALS: BP 148/97
== END 2018-01-23 00:44 ==
LOC: D.ER 19:06
PROVIDERS: Family Medicine
DX: R45.851 Suicidal ideations (principal); F17.200 Nicotine dependence, unspecified, uncomplicated

== ENCOUNTER 2018-02-04 11:38 | Emergency (ER) | payer MEDICAID ==
[~2018-02-04] VITALS: Ht 180.3 cm; Wt 86.4 kg
[2018-02-04 11:43] VITALS: Ht 180.3 cm; Wt 86.4 kg
[2018-02-04] MEDS ORDERED: ROBAXIN-750750 MG PO (13:00)
[2018-02-04] MEDS ORDERED: ATARAX 25 MG TA25 MG PO (13:00)
[2018-02-04 13:18] VITALS: BP 112/59
== END 2018-02-04 13:19 | disposition home or self-care (01) ==
LOC: D.ER 11:38
DX: F41.9 Anxiety disorder, unspecified (principal); M25.511 Pain in right shoulder; I10 Essential (primary) hypertension; K21.9 Gastro-esophageal reflux disease without esophagitis; F17.200 Nicotine dependence, unspecified, uncomplicated

== ENCOUNTER 2018-02-07 12:55 | Emergency (ER) | payer MEDICAID ==
[~2018-02-07] VITALS: Ht 180.3 cm; Wt 77.3 kg
[~2018-02-07 12:55] MED LIST changes: +ATARAX 25 MG TA25 MG PO; +ROBAXIN-750750 MG PO
[2018-02-07 13:19] VITALS: Ht 180.3 cm; Wt 77.3 kg
[2018-02-07 14:11] LABS: BASOPHILS 0.2 % (0-2); EOSINOPHILS 1.4 % (0-7); HEMOGLOBIN 14.4 g/dL (13.5-17.5); IMMATURE GRANULOCYTES 0.2 % (0-5); LYMPHOCYTES 28.4 % (15-50); MCH 31.4 pg (26.0-34.0); MCHC 35.1 g/dL (31.0-37.0); MCV 89.3 fL (80.0-100.0); MEAN PLATELET VOLUME 10.1 fL (7.4-10.4); MONOCYTES 7.9 % (2-11); NEUTROPHILS 61.9 % (40-80); RBC 4.59 10x6/uL (4.20-6.10); RDW 13.3 % (11.5-14.5); WBC 8.1 10x3/uL (4.8-10.8)
[2018-02-07 14:22] LABS: PLATELET COUNT 175 10x3/uL (130-400)
[2018-02-07 14:25] LABS: UDS - AMPHET NEGATIVE QUAL (NEGATIVE); UDS - BARB NEGATIVE QUAL (NEGATIVE); UDS - BENZO POSITIVE QUAL (NEGATIVE); UDS - COCAINE NEGATIVE QUAL (NEGATIVE); UDS - OPIATE NEGATIVE QUAL (NEGATIVE); UDS - PCP NEGATIVE QUAL (NEGATIVE); UDS - THC NEGATIVE QUAL (NEGATIVE)
[2018-02-07 14:32] LABS: SALICYLATES 1.8 mg/dL (2.8-20.0)
[2018-02-07 14:34] LABS: ANION GAP 11.1 mmol/L (8-16); BILIRUBIN - TOTAL 0.39 mg/dL (0.2-1.3); CALCIUM 8.7 mg/dL (8.5-10.1); CREATININE - SERUM 1.2 mg/dL (0.6-1.3); POTASSIUM - SERUM 4.1 mmol/L (3.5-5.1); PROTEIN - SERUM 7.4 g/dL (6.4-8.2)
[2018-02-07 14:35] LABS: LITHIUM < 0.20 mmol/L (0.60-1.20)
[2018-02-07 14:45] LABS: THYROID STIMULATING HORMONE 1.72 uIU/mL (0.36-3.74)
[2018-02-07 14:52] LABS: APPEARANCE HAZY (CLEAR); BILIRUBIN NEGATIVE (NEGATIVE); COLOR YELLOW (YELLOW); GLUCOSE NEGATIVE (NEGATIVE); KETONE NEGATIVE (NEGATIVE); NITRITE NEGATIVE (NEGATIVE); PROTEIN NEGATIVE (NEGATIVE); SPECIFIC GRAVITY 1.015 (1.005-1.020); UROBILINOGEN NORMAL (NORMAL)
[2018-02-07 14:53] LABS: BACTERIA MODERATE /hpf (NONE SEEN); EPITHELIAL CELLS 0-5 /hpf (0-5); RED CELLS - URINE OCC /hpf (0-5); WHITE CELLS - URINE 0-5 /hpf (0-5)
[2018-02-07 20:01] VITALS: BP 128/76
== END 2018-02-07 20:02 ==
LOC: D.ER 12:55
PROVIDERS: Family Medicine
DX: R45.851 Suicidal ideations (principal); I10 Essential (primary) hypertension; K21.9 Gastro-esophageal reflux disease without esophagitis; F17.200 Nicotine dependence, unspecified, uncomplicated

== ENCOUNTER 2018-02-16 21:09 | Emergency (ER) | payer MEDICAID ==
[~2018-02-16] VITALS: Ht 180.3 cm; Wt 86.4 kg
[2018-02-16 21:20] VITALS: Ht 180.3 cm; Wt 86.4 kg
[2018-02-16 21:51] LABS: UDS - AMPHET NEGATIVE QUAL (NEGATIVE); UDS - BARB NEGATIVE QUAL (NEGATIVE); UDS - BENZO NEGATIVE QUAL (NEGATIVE); UDS - COCAINE NEGATIVE QUAL (NEGATIVE); UDS - OPIATE NEGATIVE QUAL (NEGATIVE); UDS - PCP NEGATIVE QUAL (NEGATIVE); UDS - THC NEGATIVE QUAL (NEGATIVE)
[2018-02-16 21:58] LABS: BASOPHILS 0.3 % (0-2); EOSINOPHILS 2.2 % (0-7); HEMATOCRIT 39.5 % (42.0-54.0); HEMOGLOBIN 13.8 g/dL (13.5-17.5); IMMATURE GRANULOCYTES 0.1 % (0-5); LYMPHOCYTES 40.5 % (15-50); MCH 31.2 pg (26.0-34.0); MCHC 34.9 g/dL (31.0-37.0); MCV 89.4 fL (80.0-100.0); MONOCYTES 9.9 % (2-11); PLATELET COUNT 182 10x3/uL (130-400); RBC 4.42 10x6/uL (4.20-6.10); RDW 13.2 % (11.5-14.5); WBC 7.2 10x3/uL (4.8-10.8)
[2018-02-16 22:11] LABS: APPEARANCE CLEAR (CLEAR); BILIRUBIN NEGATIVE (NEGATIVE); COLOR YELLOW (YELLOW); GLUCOSE NEGATIVE (NEGATIVE); KETONE NEGATIVE (NEGATIVE); NITRITE NEGATIVE (NEGATIVE); PROTEIN NEGATIVE (NEGATIVE); UROBILINOGEN NORMAL (NORMAL)
[2018-02-16 22:28] LABS: ALBUMIN 3.6 g/dL (3.4-5.0); ALKALINE PHOSPHATASE 75 U/L (46-116); ALT (SGPT) 106 U/L (10-68); BILIRUBIN - TOTAL 0.22 mg/dL (0.2-1.3); CALC OSMOLALITY 280 mosm/kg (275-300); CALCIUM 7.9 mg/dL (8.5-10.1); CARBON DIOXIDE 27.9 mmol/L (21.0-32.0); CHLORIDE - SERUM 106 mmol/L (98-107); GLUCOSE 79 mg/dL (74-106); PROTEIN - SERUM 6.9 g/dL (6.4-8.2); SODIUM 141 mmol/L (136-145); UREA NITROGEN 15 mg/dL (7-18); eGFR NON AFRICAN AMERICAN > 90 mL/min (90-120)
[2018-02-16] MEDS ORDERED: KLONOPIN1 MG PO (23:25)
[2018-02-17 00:19] VITALS: BP 132/74
[2018-02-18] MEDS ORDERED: ESKALITH CR450 M1 PO (19:00)
[2018-02-18] MEDS ORDERED: SEROQUEL100 MG PO (19:00)
[2018-02-18] MEDS ORDERED: PROZAC40 MG PO (19:00)
[2018-02-18] MEDS ORDERED: PROTONIX40 MG PO (19:01)
== END 2018-02-17 00:20 | disposition home or self-care (01) ==
LOC: D.ER 21:09
PROVIDERS: Emergency Medicine
DX: F41.1 Generalized anxiety disorder (principal); F41.0 Panic disorder [episodic paroxysmal anxiety]; F31.9 Bipolar disorder, unspecified; I10 Essential (primary) hypertension; F17.200 Nicotine dependence, unspecified, uncomplicated

== ENCOUNTER 2018-02-18 18:52 | Emergency (ER) | payer MEDICAID ==
[~2018-02-18] VITALS: Ht 180.3 cm; Wt 81.8 kg
[2018-02-18 18:54] VITALS: Ht 180.3 cm; Wt 81.8 kg
[2018-02-18] MEDS ORDERED: ESKALITH CR450 M1 PO (19:00)
[2018-02-18] MEDS ORDERED: PROZAC40 MG PO (19:00)
[2018-02-18] MEDS ORDERED: SEROQUEL100 MG PO (19:00)
[2018-02-18] MEDS ORDERED: PROTONIX40 MG PO (19:01)
[2018-02-18 19:16] LABS: APPEARANCE CLEAR (CLEAR); BILIRUBIN NEGATIVE (NEGATIVE); COLOR YELLOW (YELLOW); GLUCOSE NEGATIVE (NEGATIVE); KETONE NEGATIVE (NEGATIVE); NITRITE NEGATIVE (NEGATIVE); PROTEIN NEGATIVE (NEGATIVE); SPECIFIC GRAVITY 1.015 (1.005-1.020); UROBILINOGEN NORMAL (NORMAL)
[2018-02-18 19:25] LABS: UDS - AMPHET NEGATIVE QUAL (NEGATIVE); UDS - BARB NEGATIVE QUAL (NEGATIVE); UDS - BENZO POSITIVE QUAL (NEGATIVE); UDS - COCAINE NEGATIVE QUAL (NEGATIVE); UDS - OPIATE NEGATIVE QUAL (NEGATIVE); UDS - PCP NEGATIVE QUAL (NEGATIVE); UDS - THC NEGATIVE QUAL (NEGATIVE)
[2018-02-18 19:40] LABS: BASOPHILS 0.2 % (0-2); EOSINOPHILS 1.7 % (0-7); HEMATOCRIT 41.3 % (42.0-54.0); HEMOGLOBIN 14.1 g/dL (13.5-17.5); IMMATURE GRANULOCYTES 0.2 % (0-5); LYMPHOCYTES 44.7 % (15-50); MCH 30.8 pg (26.0-34.0); MCHC 34.1 g/dL (31.0-37.0); MCV 90.2 fL (80.0-100.0); MEAN PLATELET VOLUME 10.3 fL (7.4-10.4); MONOCYTES 6.6 % (2-11); NEUTROPHILS 46.6 % (40-80); PLATELET COUNT 162 10x3/uL (130-400); RBC 4.58 10x6/uL (4.20-6.10); RDW 13.2 % (11.5-14.5); WBC 8.7 10x3/uL (4.8-10.8)
[2018-02-18 19:56] LABS: ALBUMIN 3.8 g/dL (3.4-5.0); BILIRUBIN - TOTAL 0.27 mg/dL (0.2-1.3); CALCIUM 8.4 mg/dL (8.5-10.1); CARBON DIOXIDE 28.8 mmol/L (21.0-32.0); CREATININE - SERUM 1.2 mg/dL (0.6-1.3); POTASSIUM - SERUM 3.8 mmol/L (3.5-5.1); PROTEIN - SERUM 7.1 g/dL (6.4-8.2)
[2018-02-18 22:42] VITALS: BP 132/87
== END 2018-02-18 23:50 ==
LOC: D.ER 18:52
PROVIDERS: Family Medicine
DX: R45.851 Suicidal ideations (principal); F32.9 Major depressive disorder, single episode, unspecified; I10 Essential (primary) hypertension; F17.200 Nicotine dependence, unspecified, uncomplicated

== ENCOUNTER 2018-02-27 16:45 | Emergency (ER) | payer MEDICAID ==
[~2018-02-27] VITALS: Ht 180.3 cm; Wt 88.2 kg
[~2018-02-27 16:45] MED LIST changes: +ESKALITH CR450 M1 PO; +PROTONIX40 MG PO; +PROZAC40 MG PO; +SEROQUEL100 MG PO
[2018-02-27 16:48] VITALS: Ht 180.3 cm; Wt 88.2 kg
[2018-02-27 17:49] LABS: BASOPHILS 0.2 % (0-2); EOSINOPHILS 1.1 % (0-7); HEMATOCRIT 39.9 % (42.0-54.0); HEMOGLOBIN 13.7 g/dL (13.5-17.5); IMMATURE GRANULOCYTES 0.2 % (0-5); LYMPHOCYTES 21.7 % (15-50); MCH 30.6 pg (26.0-34.0); MCHC 34.3 g/dL (31.0-37.0); MCV 89.1 fL (80.0-100.0); MEAN PLATELET VOLUME 10.2 fL (7.4-10.4); MONOCYTES 10.4 % (2-11); NEUTROPHILS 66.4 % (40-80); PLATELET COUNT 133 10x3/uL (130-400); RBC 4.48 10x6/uL (4.20-6.10); RDW 13.1 % (11.5-14.5); WBC 10.4 10x3/uL (4.8-10.8)
[2018-02-27 18:13] LABS: APPEARANCE CLEAR (CLEAR); BILIRUBIN NEGATIVE (NEGATIVE); COLOR YELLOW (YELLOW); GLUCOSE NEGATIVE (NEGATIVE); KETONE NEGATIVE (NEGATIVE); NITRITE NEGATIVE (NEGATIVE); PROTEIN NEGATIVE (NEGATIVE); UROBILINOGEN NORMAL (NORMAL)
[2018-02-27 18:23] LABS: UDS - AMPHET NEGATIVE QUAL (NEGATIVE); UDS - BARB NEGATIVE QUAL (NEGATIVE); UDS - BENZO POSITIVE QUAL (NEGATIVE); UDS - COCAINE NEGATIVE QUAL (NEGATIVE); UDS - OPIATE NEGATIVE QUAL (NEGATIVE); UDS - PCP NEGATIVE QUAL (NEGATIVE)
[2018-02-27 18:26] LABS: ALBUMIN 4.1 g/dL (3.4-5.0); ALKALINE PHOSPHATASE 86 U/L (46-116); ALT (SGPT) 162 U/L (10-68); BILIRUBIN - TOTAL 0.21 mg/dL (0.2-1.3); CALC OSMOLALITY 278 mosm/kg (275-300); CALCIUM 9.1 mg/dL (8.5-10.1); CARBON DIOXIDE 26.8 mmol/L (21.0-32.0); CHLORIDE - SERUM 101 mmol/L (98-107); GLUCOSE 97 mg/dL (74-106); POTASSIUM - SERUM 3.8 mmol/L (3.5-5.1); PROTEIN - SERUM 7.8 g/dL (6.4-8.2); SODIUM 139 mmol/L (136-145); UREA NITROGEN 14 mg/dL (7-18); eGFR NON AFRICAN AMERICAN > 90 mL/min (90-120)
[2018-02-27 18:33] LABS: UDS - THC NEGATIVE QUAL (NEGATIVE)
[2018-02-27 18:36] LABS: THYROID STIMULATING HORMONE 2.14 uIU/mL (0.36-3.74)
[2018-02-28 00:35] VITALS: BP 108/53
== END 2018-02-28 00:36 ==
LOC: D.ER 16:45
PROVIDERS: Emergency Medicine
DX: F32.9 Major depressive disorder, single episode, unspecified (principal); R45.851 Suicidal ideations; I10 Essential (primary) hypertension; F17.200 Nicotine dependence, unspecified, uncomplicated

== ENCOUNTER 2018-03-08 22:24 | Emergency (ER) | payer MEDICAID ==
[~2018-03-08] VITALS: Ht 180.3 cm; Wt 88.2 kg
[2018-03-08 22:41] VITALS: Ht 180.3 cm; Wt 88.2 kg
[2018-03-08] MEDS ORDERED: PROZAC20 MG PO (22:43)
[2018-03-08] MEDS ORDERED: AMBIEN5 MG PO (22:43)
[2018-03-08] MEDS ORDERED: XANAX1 MG PO (22:44)
[2018-03-08 22:55] LABS: APPEARANCE CLEAR (CLEAR); BILIRUBIN NEGATIVE (NEGATIVE); COLOR YELLOW (YELLOW); GLUCOSE NEGATIVE (NEGATIVE); KETONE NEGATIVE (NEGATIVE); NITRITE NEGATIVE (NEGATIVE); PROTEIN NEGATIVE (NEGATIVE); UROBILINOGEN NORMAL (NORMAL)
[2018-03-08 22:57] LABS: BASOPHILS 0.2 % (0-2); EOSINOPHILS 1.7 % (0-7); HEMATOCRIT 37.3 % (42.0-54.0); HEMOGLOBIN 12.9 g/dL (13.5-17.5); IMMATURE GRANULOCYTES 0.2 % (0-5); MCH 30.9 pg (26.0-34.0); MCHC 34.6 g/dL (31.0-37.0); MCV 89.4 fL (80.0-100.0); MEAN PLATELET VOLUME 10.1 fL (7.4-10.4); MONOCYTES 9.6 % (2-11); NEUTROPHILS 60.3 % (40-80); PLATELET COUNT 198 10x3/uL (130-400); RBC 4.17 10x6/uL (4.20-6.10); RDW 13.3 % (11.5-14.5); WBC 8.3 10x3/uL (4.8-10.8)
[2018-03-08 23:03] LABS: LITHIUM 0.34 mmol/L (0.60-1.20); SALICYLATES 2.1 mg/dL (2.8-20.0)
[2018-03-08 23:07] LABS: UDS - AMPHET NEGATIVE QUAL (NEGATIVE); UDS - BARB NEGATIVE QUAL (NEGATIVE); UDS - BENZO POSITIVE QUAL (NEGATIVE); UDS - COCAINE NEGATIVE QUAL (NEGATIVE); UDS - OPIATE NEGATIVE QUAL (NEGATIVE); UDS - PCP NEGATIVE QUAL (NEGATIVE); UDS - THC NEGATIVE QUAL (NEGATIVE)
[2018-03-08 23:19] LABS: ALBUMIN 3.7 g/dL (3.4-5.0); ALKALINE PHOSPHATASE 83 U/L (46-116); ALT (SGPT) 89 U/L (10-68); BILIRUBIN - TOTAL 0.32 mg/dL (0.2-1.3); CALC OSMOLALITY 275 mosm/kg (275-300); CALCIUM 8.5 mg/dL (8.5-10.1); CARBON DIOXIDE 27.3 mmol/L (21.0-32.0); CHLORIDE - SERUM 104 mmol/L (98-107); CREATININE - SERUM 1.1 mg/dL (0.6-1.3); GLUCOSE 99 mg/dL (74-106); POTASSIUM - SERUM 4.1 mmol/L (3.5-5.1); PROTEIN - SERUM 7.2 g/dL (6.4-8.2); SODIUM 137 mmol/L (136-145); UREA NITROGEN 18 mg/dL (7-18); eGFR NON AFRICAN AMERICAN 82 mL/min (90-120)
[2018-03-09 07:33] VITALS: BP 148/082
== END 2018-03-09 07:34 | disposition other institution (70) ==
LOC: D.ER 22:24
PROVIDERS: Family Medicine
DX: F32.9 Major depressive disorder, single episode, unspecified (principal); R45.851 Suicidal ideations; I10 Essential (primary) hypertension; F31.9 Bipolar disorder, unspecified; F17.200 Nicotine dependence, unspecified, uncomplicated

== ENCOUNTER 2018-03-22 12:28 | Emergency (ER) | payer MEDICAID ==
[~2018-03-22] VITALS: Ht 180.3 cm; Wt 96.8 kg
[~2018-03-22 12:28] MED LIST changes: +AMBIEN5 MG PO; +PROZAC20 MG PO; +XANAX1 MG PO
[2018-03-22 12:34] VITALS: Ht 180.3 cm; Wt 96.8 kg
[2018-03-22 13:38] LABS: APPEARANCE CLEAR (CLEAR); BILIRUBIN NEGATIVE (NEGATIVE); COLOR YELLOW (YELLOW); GLUCOSE NEGATIVE (NEGATIVE); KETONE NEGATIVE (NEGATIVE); NITRITE NEGATIVE (NEGATIVE); PROTEIN TRACE mg/dL (NEGATIVE); UROBILINOGEN NORMAL (NORMAL)
[2018-03-22 13:39] LABS: EPITHELIAL CELLS NSEEN /hpf (0-5); RED CELLS - URINE NONE SEEN /hpf (0-5); WHITE CELLS - URINE NSEEN /hpf (0-5)
[2018-03-22 13:48] LABS: BASOPHILS 0.3 % (0-2); EOSINOPHILS 1.4 % (0-7); HEMATOCRIT 40.9 % (42.0-54.0); HEMOGLOBIN 13.8 g/dL (13.5-17.5); IMMATURE GRANULOCYTES 0.3 % (0-5); LYMPHOCYTES 25.4 % (15-50); MCH 30.8 pg (26.0-34.0); MCHC 33.7 g/dL (31.0-37.0); MCV 91.3 fL (80.0-100.0); MEAN PLATELET VOLUME 9.9 fL (7.4-10.4); MONOCYTES 6.3 % (2-11); NEUTROPHILS 66.3 % (40-80); RBC 4.48 10x6/uL (4.20-6.10); RDW 13.2 % (11.5-14.5); WBC 6.7 10x3/uL (4.8-10.8)
[2018-03-22 13:49] LABS: PLATELET COUNT 157 10x3/uL (130-400)
[2018-03-22 13:56] LABS: APTT 28.1 SECONDS (22.8-39.4); PROTIME 12.8 SECONDS (11.6-15.0)
[2018-03-22 14:15] LABS: ALBUMIN 4.1 g/dL (3.4-5.0); ALKALINE PHOSPHATASE 80 U/L (46-116); ALT (SGPT) 39 U/L (10-68); BILIRUBIN - TOTAL 0.28 mg/dL (0.2-1.3); CALC OSMOLALITY 272 mosm/kg (275-300); CALCIUM 8.9 mg/dL (8.5-10.1); CHLORIDE - SERUM 102 mmol/L (98-107); CKMB 1.9 U/L (0.0-3.6); CREATINE KINASE 231 UL (21-232); CREATININE - SERUM 1.2 mg/dL (0.6-1.3); GLUCOSE 104 mg/dL (74-106); POTASSIUM - SERUM 3.7 mmol/L (3.5-5.1); PROTEIN - SERUM 7.8 g/dL (6.4-8.2); SODIUM 137 mmol/L (136-145); TROPONIN-I < 0.017 ng/mL (0.000-0.060); UREA NITROGEN 10 mg/dL (7-18); eGFR NON AFRICAN AMERICAN 74 mL/min (90-120)
[2018-03-22 16:09] LABS: UDS - AMPHET NEGATIVE QUAL (NEGATIVE); UDS - BARB NEGATIVE QUAL (NEGATIVE); UDS - BENZO POSITIVE QUAL (NEGATIVE); UDS - COCAINE NEGATIVE QUAL (NEGATIVE); UDS - OPIATE NEGATIVE QUAL (NEGATIVE); UDS - PCP NEGATIVE QUAL (NEGATIVE); UDS - THC NEGATIVE QUAL (NEGATIVE)
[2018-03-22] MEDS ORDERED: LOPRESSOR25 MG PO (16:39)
[2018-03-22 16:53] VITALS: BP 159/101
[2018-03-22] MEDS ORDERED: NORVASC10 MG PO (21:41)
[2018-03-22] MEDS ORDERED: DESERYL50 M2 PO (21:41)
[2018-03-22] MEDS ORDERED: SEROQUEL200 MG PO (21:45)
== END 2018-03-22 16:55 | disposition home or self-care (01) ==
LOC: D.ER 12:28
PROVIDERS: Family Medicine
DX: F41.9 Anxiety disorder, unspecified (principal); I10 Essential (primary) hypertension; F17.200 Nicotine dependence, unspecified, uncomplicated; R00.0 Tachycardia, unspecified

== ENCOUNTER 2018-03-22 21:04 | Emergency (ER) | payer MEDICAID ==
[~2018-03-22] VITALS: Ht 180.3 cm; Wt 75.0 kg
[2018-03-22 21:06] VITALS: Ht 180.3 cm; Wt 75.0 kg
[2018-03-22] MEDS ORDERED: DESERYL50 M2 PO (21:41)
[2018-03-22] MEDS ORDERED: NORVASC10 MG PO (21:41)
[2018-03-22] MEDS ORDERED: SEROQUEL200 MG PO (21:45)
[2018-03-22 21:49] LABS: BASOPHILS 0.2 % (0-2); HEMATOCRIT 41.2 % (42.0-54.0); IMMATURE GRANULOCYTES 0.2 % (0-5); LYMPHOCYTES 23.1 % (15-50); MCH 30.9 pg (26.0-34.0); MCV 90.9 fL (80.0-100.0); MEAN PLATELET VOLUME 9.9 fL (7.4-10.4); MONOCYTES 8.5 % (2-11); PLATELET COUNT 186 10x3/uL (130-400); RBC 4.53 10x6/uL (4.20-6.10); RDW 13.2 % (11.5-14.5)
[2018-03-22 22:08] LABS: LITHIUM 1.31 mmol/L (0.60-1.20); SALICYLATES 3.8 mg/dL (2.8-20.0)
[2018-03-22 22:13] LABS: APPEARANCE CLEAR (CLEAR); BILIRUBIN NEGATIVE (NEGATIVE); COLOR YELLOW (YELLOW); GLUCOSE NEGATIVE (NEGATIVE); KETONE NEGATIVE (NEGATIVE); NITRITE NEGATIVE (NEGATIVE); PROTEIN NEGATIVE (NEGATIVE); SPECIFIC GRAVITY 1.015 (1.005-1.020); UROBILINOGEN NORMAL (NORMAL)
[2018-03-22 22:15] LABS: BACTERIA FEW /hpf (NONE SEEN); EPITHELIAL CELLS 0-5 /hpf (0-5); WHITE CELLS - URINE 0-5 /hpf (0-5)
[2018-03-22 22:15] LABS: ALBUMIN 3.9 g/dL (3.4-5.0); ANION GAP 13.6 mmol/L (8-16); BILIRUBIN - TOTAL 0.21 mg/dL (0.2-1.3); CALCIUM 9.2 mg/dL (8.5-10.1); CARBON DIOXIDE 26.5 mmol/L (21.0-32.0); CREATININE - SERUM 1.2 mg/dL (0.6-1.3); MAGNESIUM - SERUM 2.1 mg/dL (1.8-2.4); POTASSIUM - SERUM 4.1 mmol/L (3.5-5.1); PROTEIN - SERUM 7.4 g/dL (6.4-8.2)
[2018-03-22 22:28] LABS: UDS - AMPHET NEGATIVE QUAL (NEGATIVE); UDS - BARB NEGATIVE QUAL (NEGATIVE); UDS - BENZO POSITIVE QUAL (NEGATIVE); UDS - COCAINE NEGATIVE QUAL (NEGATIVE); UDS - OPIATE NEGATIVE QUAL (NEGATIVE); UDS - PCP NEGATIVE QUAL (NEGATIVE); UDS - THC NEGATIVE QUAL (NEGATIVE)
[2018-03-23 00:02] VITALS: BP 132/79
== END 2018-03-23 00:32 ==
LOC: D.ER 21:04
PROVIDERS: Family Medicine
DX: R45.851 Suicidal ideations (principal); I10 Essential (primary) hypertension; F17.200 Nicotine dependence, unspecified, uncomplicated

== ENCOUNTER 2018-03-29 18:48 | Inpatient (IN) | payer MEDICAID ==
[~2018-03-29] VITALS: Ht 180.3 cm; Wt 95.5 kg
--- NOTE | ~2018-03-29 | CN ---
PATIENT NAME:SHANIQUE BARCLAY MEDICAL RECORD: [id number] : 85 LOCATION:[id number] ADMIT DATE: 03/29/18 ACCOUNT: [id number] CONSULTING PHYSICIAN: IRINA SCOTT MD REFERRING PHYSICIAN: ISELA MARAVILLA MD DATE OF CONSULTATION: 03/30/2018 IDENTIFYING DATA: The patient is 32 years old and he is admitted to the hospital on a voluntary basis secondary to an overdose. HISTORY OF PRESENT ILLNESS: The patient took a large amount of lithium and aspirin yesterday. He claims he took this, but the blood level on the lithium is actually subtherapeutic. This brings into some doubt about whether or not he truly took an overdose or how much. The patient told the ER doctor that he should have cut his throat. He tells me that if he is sent home, he is just going to kill himself. He relates all of this to some family conflict with his either former or girlfriend and children that he has not seen for a couple of years. I am not able to understand if there was anything specific that came up yesterday or this is just a combination of a lot of ongoing problems. The patient is endorsing numerous vegetative depressive symptoms. MENTAL STATUS EXAMINATION: The patient is awake, alert and oriented to person, place, as well as time and situation. His mood is depressed. His affect is constricted. Thought processes are circumstantial. His memory, concentration, and abstraction abilities are at least moderately impaired. He denies any psychotic symptoms as well as thoughts of harming others. He does endorse suicidal thoughts as described above. ASSESSMENT: 1. Bipolar disorder by history. 2. Status post overdose. 3. Ongoing suicidal statements and threats. PLAN: At this time, the patient should be transferred to acute inpatient mental health care once medically stabilized. He has been to numerous psychiatric facilities. His long-term prognosis is guarded. TRANSINT:[id number] Voice Confirmation ID: [id number] DOCUMENT ID: [id number] IRINA SCOTT MD at 1421 CC: [id number] DICTATION DATE: 03/30/18 1303 MEDICAL DEVICE SALES REPRESENTATIVE: 03/30/18 1338 ADM IN [place] [address] [place] [address]
--- NOTE | ~2018-03-29 | MORECARE ---
CASE MANAGEMENT DISCHARGE SUMMARY PATIENT: SHANIQUE BARCLAY UNIT: [id number] ADM DATE: 03/29/18 AGE: 32 : 85 SEX: M ROOM/BED: D.2302 AUTHOR: ANIVAL MEJIA PHYSICIAN: REFERRING PHYSICIAN: ISELA MARAVILLA MD DATE OF SERVICE: 04/02/18 Discharge Plan Patient Name: SHANIQUE BARCLAY Facility: [facility]:[place] : 1985 Planned Disposition: Anticipated Discharge Date: Discharge Date: 03/31/2018 Expected LOS: Initial Reviewer: [email or web address] Initial Review Date: 03/29/2018 Generated: 04/02/18 5:36 pm Comments DCP- Discharge Planning Updated by [email or web address]: Uzma Sykes on 03/30/18 5:[address] LATE ENTRY 03/30/18 @ 1410 CM was notified to find inpatient psychiatric placement. Patient is willing to go to inpatient facility. CM notified transfer center and faxed records. CM awaiting response for placement. CM will continue to follow and assist as needed. Last DP export: 03/30/18 5:33 Patient Name: SHANIQUE BARCLAY Page [phone] at 1636 All edits/amendments must be made on the electronic document DICTATION DATE: 04/02/18 1635 SALES AND IN HOME DELIVERY SPECIALIST: FARHAT 04/02/18 1635 RPT#: [id number] DC DATE:03/31/18 STATUS: DIS IN [facility] [address] [place] [address] END OF REPORT
--- NOTE | ~2018-03-29 | MORECARE ---
CASE MANAGEMENT DISCHARGE SUMMARY PATIENT: SHANIQUE BARCLAY UNIT: [id number] ADM DATE: 03/29/18 AGE: 32 : 85 SEX: M ROOM/BED: D.2302 AUTHOR: ANIVAL MEJIA PHYSICIAN: REFERRING PHYSICIAN: ISELA MARAVILLA MD DATE OF SERVICE: 03/30/18 Discharge Plan Patient Name: SHANIQUE BARCLAY Facility: [facility]:[place] : 1985 Planned Disposition: Anticipated Discharge Date: Discharge Date: Expected LOS: Initial Reviewer: [email or web address] Initial Review Date: 03/29/2018 Generated: 03/30/18 7:33 pm Comments DCP- Discharge Planning Updated by [email or web address]: Uzma Sykes on 03/30/18 5:[address] LATE ENTRY 03/30/18 @ 1410 CM was notified to find inpatient psychiatric placement. Patient is willing to go to inpatient facility. CM notified transfer center and faxed records. CM awaiting response for placement. CM will continue to follow and assist as needed. Last DP export: 03/30/18 12:48 Patient Name: SHANIQUE BARCLAY Page [phone] at 1833 All edits/amendments must be made on the electronic document DICTATION DATE: 03/30/181832 PERIODICALS CLERK: FARHAT 03/30/181832 RPT#: [id number] DC DATE: STATUS: ADM IN [facility] [address] [place] [address] END OF REPORT
--- NOTE | ~2018-03-29 | MORECARE ---
CASE MANAGEMENT DISCHARGE SUMMARY PATIENT: SHANIQUE BARCLAY UNIT: [id number] ADM DATE: 03/29/18 AGE: 32 : 85 SEX: M ROOM/BED: D.2302 AUTHOR: ANIVAL MEJIA PHYSICIAN: REFERRING PHYSICIAN: ISELA MARAVILLA MD DATE OF SERVICE: 03/30/18 Discharge Plan Patient Name: SHANIQUE BARCLAY Facility: [facility]:[place] : 1985 Planned Disposition: Anticipated Discharge Date: Discharge Date: Expected LOS: Initial Reviewer: [email or web address] Initial Review Date: 03/29/2018 Generated: 03/30/18 2:48 pm External Providers External Provider: [facility] Next Contact Date: Service Request Date: Service Type: Resolution: Reviewer: Comments: Patient Name: SHANIQUE BARCLAY Page [id number] at 1348 All edits/amendments must be made on the electronic document DICTATION DATE: 03/30/18 1347 OUTCOMES SPECIALIST: FARHAT 03/30/18 1347 RPT#: [id number] DC DATE: STATUS: ADM IN [facility] [address] [place] [address] END OF REPORT
[~2018-03-29 18:48] MED LIST changes: +DESERYL50 M2 PO; +SEROQUEL200 MG PO
[2018-03-29 19:23] LABS: BASOPHILS 0.4 % (0-2); EOSINOPHILS 2.5 % (0-7); HEMATOCRIT 41.1 % (42.0-54.0); HEMOGLOBIN 13.9 g/dL (13.5-17.5); IMMATURE GRANULOCYTES 0.3 % (0-5); LYMPHOCYTES 39.2 % (15-50); MCH 30.7 pg (26.0-34.0); MCHC 33.8 g/dL (31.0-37.0); MCV 90.7 fL (80.0-100.0); MEAN PLATELET VOLUME 10.6 fL (7.4-10.4); MONOCYTES 9.6 % (2-11); PLATELET COUNT 181 10x3/uL (130-400); RBC 4.53 10x6/uL (4.20-6.10); RDW 13.1 % (11.5-14.5); WBC 9.5 10x3/uL (4.8-10.8)
[2018-03-29 19:40] LABS: APPEARANCE CLEAR (CLEAR); BILIRUBIN NEGATIVE (NEGATIVE); COLOR YELLOW (YELLOW); GLUCOSE NEGATIVE (NEGATIVE); KETONE NEGATIVE (NEGATIVE); NITRITE NEGATIVE (NEGATIVE); PH 6.5 (5.0-6.0); PROTEIN NEGATIVE (NEGATIVE); UDS - AMPHET NEGATIVE QUAL (NEGATIVE); UDS - BARB NEGATIVE QUAL (NEGATIVE); UDS - BENZO POSITIVE QUAL (NEGATIVE); UDS - COCAINE NEGATIVE QUAL (NEGATIVE); UDS - OPIATE NEGATIVE QUAL (NEGATIVE); UDS - PCP NEGATIVE QUAL (NEGATIVE); UDS - THC NEGATIVE QUAL (NEGATIVE); UROBILINOGEN NORMAL (NORMAL)
[2018-03-29 19:43] LABS: BACTERIA FEW /hpf (NONE SEEN); EPITHELIAL CELLS RARE /hpf (0-5); RED CELLS - URINE NONE SEEN /hpf (0-5); WHITE CELLS - URINE OCC /hpf (0-5)
[2018-03-29 19:48] LABS: ALBUMIN 3.7 g/dL (3.4-5.0); ALKALINE PHOSPHATASE 96 U/L (46-116); ALT (SGPT) 73 U/L (10-68); CALC OSMOLALITY 276 mosm/kg (275-300); CALCIUM 8.2 mg/dL (8.5-10.1); CARBON DIOXIDE 25.4 mmol/L (21.0-32.0); CHLORIDE - SERUM 104 mmol/L (98-107); CREATININE - SERUM 1.1 mg/dL (0.6-1.3); GLUCOSE 95 mg/dL (74-106); POTASSIUM - SERUM 4.3 mmol/L (3.5-5.1); PROTEIN - SERUM 7.2 g/dL (6.4-8.2); SODIUM 138 mmol/L (136-145); UREA NITROGEN 14 mg/dL (7-18); eGFR NON AFRICAN AMERICAN 82 mL/min (90-120)
[2018-03-29 19:56] LABS: MAGNESIUM - SERUM 2.3 mg/dL (1.8-2.4); THYROID STIMULATING HORMONE 3.39 uIU/mL (0.36-3.74)
[2018-03-29 19:58] LABS: LITHIUM 0.76 mmol/L (0.60-1.20)
[2018-03-29 22:00] LABS: LITHIUM 0.64 mmol/L (0.60-1.20)
[2018-03-29 22:03] LABS: SALICYLATES 19.5 mg/dL (2.8-20.0)
[2018-03-29 22:45] VITALS: BP 124/72
[2018-03-29 23:00] VITALS: BP 109/66
[2018-03-29] MEDS ORDERED: METOPROLOL TART50 MG PO (23:08)
[2018-03-29] MEDS ORDERED: NORVASC10 MG PO (23:10)
[2018-03-29 23:11] LABS: LITHIUM 0.61 mmol/L (0.60-1.20); SALICYLATES 20.5 mg/dL (2.8-20.0)
[2018-03-29] MEDS ORDERED: SEROQUEL400 MG PO (23:12)
[2018-03-29] MEDS ORDERED: KLONOPIN1 MG PO (23:13)
[2018-03-29] MEDS ORDERED: AMBIEN10 MG PO (23:13)
[2018-03-29 23:23] VITALS: BP 124/72; BMI 29.2
[2018-03-30] VITALS (14 sets, daily range): BP systolic 87–134; BP diastolic 45–82; Ht 180.3 cm; Wt 95.5 kg
[2018-03-30 01:42] LABS: LITHIUM 0.58 mmol/L (0.60-1.20); SALICYLATES 18.5 mg/dL (2.8-20.0)
[2018-03-30 04:06] LABS: BASOPHILS 0.4 % (0-2); EOSINOPHILS 3.1 % (0-7); HEMATOCRIT 38.8 % (42.0-54.0); HEMOGLOBIN 12.8 g/dL (13.5-17.5); IMMATURE GRANULOCYTES 0.4 % (0-5); MCH 29.9 pg (26.0-34.0); MCV 90.7 fL (80.0-100.0); MEAN PLATELET VOLUME 10.7 fL (7.4-10.4); MONOCYTES 8.6 % (2-11); NEUTROPHILS 45.5 % (40-80); PLATELET COUNT 170 10x3/uL (130-400); RBC 4.28 10x6/uL (4.20-6.10); RDW 13.3 % (11.5-14.5); WBC 7.4 10x3/uL (4.8-10.8)
[2018-03-30 04:21] LABS: ALKALINE PHOSPHATASE 73 U/L (46-116); ALT (SGPT) 63 U/L (10-68); BILIRUBIN - TOTAL 0.12 mg/dL (0.2-1.3); CALC OSMOLALITY 282 mosm/kg (275-300); CALCIUM 7.7 mg/dL (8.5-10.1); CARBON DIOXIDE 27.2 mmol/L (21.0-32.0); CHLORIDE - SERUM 106 mmol/L (98-107); GLUCOSE 107 mg/dL (74-106); POTASSIUM - SERUM 3.5 mmol/L (3.5-5.1); SODIUM 142 mmol/L (136-145); UREA NITROGEN 12 mg/dL (7-18); eGFR NON AFRICAN AMERICAN > 90 mL/min (90-120)
[2018-03-31 03:00] VITALS: BP 118/74
[2018-03-31 03:53] LABS: BASOPHILS 0.3 % (0-2); EOSINOPHILS 2.6 % (0-7); HEMATOCRIT 37.7 % (42.0-54.0); HEMOGLOBIN 12.5 g/dL (13.5-17.5); IMMATURE GRANULOCYTES 0.2 % (0-5); LYMPHOCYTES 37.3 % (15-50); MCH 29.8 pg (26.0-34.0); MCHC 33.2 g/dL (31.0-37.0); MEAN PLATELET VOLUME 10.5 fL (7.4-10.4); MONOCYTES 9.2 % (2-11); NEUTROPHILS 50.4 % (40-80); PLATELET COUNT 151 10x3/uL (130-400); RBC 4.19 10x6/uL (4.20-6.10); WBC 6.4 10x3/uL (4.8-10.8)
[2018-03-31 04:07] LABS: CALC OSMOLALITY 280 mosm/kg (275-300); CALCIUM 8.6 mg/dL (8.5-10.1); CARBON DIOXIDE 31.8 mmol/L (21.0-32.0); CHLORIDE - SERUM 104 mmol/L (98-107); CREATININE - SERUM 0.8 mg/dL (0.6-1.3); GLUCOSE 117 mg/dL (74-106); POTASSIUM - SERUM 3.3 mmol/L (3.5-5.1); SODIUM 141 mmol/L (136-145); UREA NITROGEN 10 mg/dL (7-18); eGFR NON AFRICAN AMERICAN > 90 mL/min (90-120)
[2018-03-31 08:00] VITALS: BP 130/71
[2018-03-31 09:00] VITALS: BP 130/77
[2018-03-31 11:00] VITALS: BP 137/88
[2018-03-31 13:00] VITALS: BP 150/89
== END 2018-03-31 17:54 | DRG 918 ==
LOC: D.ER 18:48 → D.ICU 20:56 → D.EDHOLD 20:56 → D.ICU 03-31 17:54
PROVIDERS: Emergency Medicine; Family Medicine; Internal Medicine Nephrology
DX: T39.012A Poisoning by aspirin, intentional self-harm, initial encounter (principal); F17.203 Nicotine dependence unspecified, with withdrawal; T43.592A Poisoning by other antipsychotics and neuroleptics, intentional self-harm, initial encounter; F41.8 Other specified anxiety disorders; I10 Essential (primary) hypertension; K21.9 Gastro-esophageal reflux disease without esophagitis

== ENCOUNTER 2018-04-08 11:02 | Emergency (ER) | payer MEDICAID ==
[~2018-04-08] VITALS: Ht 180.3 cm; Wt 60.5 kg
[~2018-04-08 11:02] MED LIST changes: +AMBIEN10 MG PO; +SEROQUEL400 MG PO
[2018-04-08 11:16] VITALS: Ht 180.3 cm; Wt 60.5 kg
[2018-04-08 12:56] LABS: BASOPHILS 0.1 % (0-2); EOSINOPHILS 0.7 % (0-7); HEMOGLOBIN 14.7 g/dL (13.5-17.5); IMMATURE GRANULOCYTES 0.3 % (0-5); LYMPHOCYTES 16.6 % (15-50); MCH 30.8 pg (26.0-34.0); MCHC 34.2 g/dL (31.0-37.0); MEAN PLATELET VOLUME 10.2 fL (7.4-10.4); MONOCYTES 8.2 % (2-11); NEUTROPHILS 74.1 % (40-80); PLATELET COUNT 169 10x3/uL (130-400); RBC 4.78 10x6/uL (4.20-6.10); RDW 13.4 % (11.5-14.5); WBC 13.6 10x3/uL (4.8-10.8)
[2018-04-08 13:10] LABS: ALBUMIN 4.1 g/dL (3.4-5.0); ANION GAP 12.3 mmol/L (8-16); BILIRUBIN - TOTAL 0.26 mg/dL (0.2-1.3); CALCIUM 9.4 mg/dL (8.5-10.1); CARBON DIOXIDE 28.9 mmol/L (21.0-32.0); CREATININE - SERUM 1.3 mg/dL (0.6-1.3); POTASSIUM - SERUM 4.2 mmol/L (3.5-5.1); PROTEIN - SERUM 8.1 g/dL (6.4-8.2)
[2018-04-08 14:00] LABS: APPEARANCE CLEAR (CLEAR); BACTERIA NONE SEEN /hpf (NONE SEEN); BILIRUBIN NEGATIVE (NEGATIVE); COLOR YELLOW (YELLOW); EPITHELIAL CELLS NSEEN /hpf (0-5); GLUCOSE NEGATIVE (NEGATIVE); KETONE NEGATIVE (NEGATIVE); NITRITE NEGATIVE (NEGATIVE); PROTEIN TRACE mg/dL (NEGATIVE); RED CELLS - URINE NONE SEEN /hpf (0-5); SPECIFIC GRAVITY 1.015 (1.005-1.020); UROBILINOGEN NORMAL (NORMAL); WHITE CELLS - URINE NSEEN /hpf (0-5)
[2018-04-08 14:01] LABS: UDS - AMPHET NEGATIVE QUAL (NEGATIVE); UDS - BARB NEGATIVE QUAL (NEGATIVE); UDS - BENZO POSITIVE QUAL (NEGATIVE); UDS - COCAINE NEGATIVE QUAL (NEGATIVE); UDS - OPIATE NEGATIVE QUAL (NEGATIVE); UDS - PCP NEGATIVE QUAL (NEGATIVE); UDS - THC NEGATIVE QUAL (NEGATIVE)
[2018-04-08 14:10] VITALS: BP 120/82
== END 2018-04-08 16:59 | disposition other institution (70) ==
LOC: D.ER 11:02
PROVIDERS: Family Medicine
DX: R45.851 Suicidal ideations (principal); Z76.5 Malingerer [conscious simulation]; G40.909 Epilepsy, unspecified, not intractable, without status epilepticus; I10 Essential (primary) hypertension; K21.9 Gastro-esophageal reflux disease without esophagitis; F17.200 Nicotine dependence, unspecified, uncomplicated

== ENCOUNTER 2018-04-12 19:31 | Emergency (ER) | payer MEDICAID ==
[~2018-04-12] VITALS: Ht 180.3 cm; Wt 97.3 kg
[2018-04-12 19:46] VITALS: Ht 180.3 cm; Wt 97.3 kg
[2018-04-12 21:41] LABS: ALBUMIN 3.7 g/dL (3.4-5.0); ALKALINE PHOSPHATASE 79 U/L (46-116); ALT (SGPT) 57 U/L (10-68); BILIRUBIN - TOTAL 0.25 mg/dL (0.2-1.3); CALC OSMOLALITY 276 mosm/kg (275-300); CARBON DIOXIDE 27.6 mmol/L (21.0-32.0); CHLORIDE - SERUM 102 mmol/L (98-107); CREATININE - SERUM 0.9 mg/dL (0.6-1.3); GLUCOSE 79 mg/dL (74-106); POTASSIUM - SERUM 4.6 mmol/L (3.5-5.1); PROTEIN - SERUM 7.5 g/dL (6.4-8.2); SODIUM 138 mmol/L (136-145); UREA NITROGEN 18 mg/dL (7-18); eGFR NON AFRICAN AMERICAN > 90 mL/min (90-120)
[2018-04-12 21:51] LABS: BASOPHILS 0.5 % (0-2); HEMATOCRIT 39.5 % (42.0-54.0); HEMOGLOBIN 13.2 g/dL (13.5-17.5); IMMATURE GRANULOCYTES 1.1 % (0-5); LYMPHOCYTES 38.2 % (15-50); MCHC 33.4 g/dL (31.0-37.0); MCV 89.8 fL (80.0-100.0); MONOCYTES 9.1 % (2-11); NEUTROPHILS 49.1 % (40-80); PLATELET COUNT 171 10x3/uL (130-400); RDW 13.1 % (11.5-14.5)
[2018-04-12 23:32] LABS: THYROID STIMULATING HORMONE 4.43 uIU/mL (0.36-3.74)
[2018-04-13 01:23] LABS: UDS - AMPHET NEGATIVE QUAL (NEGATIVE); UDS - BARB NEGATIVE QUAL (NEGATIVE); UDS - BENZO POSITIVE QUAL (NEGATIVE); UDS - COCAINE NEGATIVE QUAL (NEGATIVE); UDS - OPIATE NEGATIVE QUAL (NEGATIVE); UDS - PCP NEGATIVE QUAL (NEGATIVE); UDS - THC NEGATIVE QUAL (NEGATIVE)
[2018-04-13 03:44] VITALS: BP 100/70
== END 2018-04-13 03:45 | disposition home or self-care (01) ==
LOC: D.ER 19:31
PROVIDERS: Family Medicine
DX: R10.32 Left lower quadrant pain (principal); G40.909 Epilepsy, unspecified, not intractable, without status epilepticus; I10 Essential (primary) hypertension; K21.9 Gastro-esophageal reflux disease without esophagitis; F17.200 Nicotine dependence, unspecified, uncomplicated

== ENCOUNTER 2018-04-17 15:02 | Emergency (ER) | payer MEDICAID ==
[~2018-04-17] VITALS: Ht 180.3 cm; Wt 96.8 kg
[2018-04-17 15:13] VITALS: Ht 180.3 cm; Wt 96.8 kg
[2018-04-17 17:28] LABS: BASOPHILS 0.6 % (0-2); EOSINOPHILS 2.3 % (0-7); HEMATOCRIT 36.3 % (42.0-54.0); IMMATURE GRANULOCYTES 1.6 % (0-5); LYMPHOCYTES 29.8 % (15-50); MCH 29.6 pg (26.0-34.0); MCHC 33.1 g/dL (31.0-37.0); MCV 89.6 fL (80.0-100.0); MEAN PLATELET VOLUME 10.7 fL (7.4-10.4); MONOCYTES 10.8 % (2-11); NEUTROPHILS 54.9 % (40-80); PLATELET COUNT 145 10x3/uL (130-400); RBC 4.05 10x6/uL (4.20-6.10); RDW 13.4 % (11.5-14.5); WBC 6.4 10x3/uL (4.8-10.8)
[2018-04-17 17:34] LABS: APPEARANCE CLEAR (CLEAR); BILIRUBIN NEGATIVE (NEGATIVE); COLOR YELLOW (YELLOW); GLUCOSE NEGATIVE (NEGATIVE); KETONE NEGATIVE (NEGATIVE); NITRITE NEGATIVE (NEGATIVE); PROTEIN NEGATIVE (NEGATIVE); UROBILINOGEN NORMAL (NORMAL)
[2018-04-17 17:42] LABS: UDS - AMPHET NEGATIVE QUAL (NEGATIVE); UDS - BARB NEGATIVE QUAL (NEGATIVE); UDS - BENZO POSITIVE QUAL (NEGATIVE); UDS - COCAINE NEGATIVE QUAL (NEGATIVE); UDS - OPIATE POSITIVE QUAL (NEGATIVE); UDS - PCP NEGATIVE QUAL (NEGATIVE); UDS - THC NEGATIVE QUAL (NEGATIVE)
[2018-04-17 18:11] LABS: ALBUMIN 3.4 g/dL (3.4-5.0); ALKALINE PHOSPHATASE 83 U/L (46-116); ALT (SGPT) 71 U/L (10-68); BILIRUBIN - TOTAL 0.12 mg/dL (0.2-1.3); CALC OSMOLALITY 279 mosm/kg (275-300); CALCIUM 8.8 mg/dL (8.5-10.1); CARBON DIOXIDE 29.2 mmol/L (21.0-32.0); CHLORIDE - SERUM 101 mmol/L (98-107); CREATININE - SERUM 0.9 mg/dL (0.6-1.3); MAGNESIUM - SERUM 2.1 mg/dL (1.8-2.4); POTASSIUM - SERUM 4.4 mmol/L (3.5-5.1); PROTEIN - SERUM 6.9 g/dL (6.4-8.2); SODIUM 136 mmol/L (136-145); UREA NITROGEN 26 mg/dL (7-18); eGFR NON AFRICAN AMERICAN > 90 mL/min (90-120)
[2018-04-17 18:14] LABS: GLUCOSE 157 mg/dL (74-106)
[2018-04-18 08:13] VITALS: BP 105/065
== END 2018-04-18 08:21 ==
LOC: D.ER 15:02
PROVIDERS: Family Medicine
DX: F32.9 Major depressive disorder, single episode, unspecified (principal); K02.9 Dental caries, unspecified; R45.851 Suicidal ideations; G40.909 Epilepsy, unspecified, not intractable, without status epilepticus; I10 Essential (primary) hypertension; K21.9 Gastro-esophageal reflux disease without esophagitis; F17.200 Nicotine dependence, unspecified, uncomplicated

== ENCOUNTER 2018-04-23 18:47 | Emergency (ER) | payer MEDICAID ==
[~2018-04-23] VITALS: Ht 180.3 cm; Wt 94.1 kg
[2018-04-23 18:48] VITALS: Ht 180.3 cm; Wt 94.1 kg
[2018-04-23 19:34] LABS: BASOPHILS 0.3 % (0-2); EOSINOPHILS 1.8 % (0-7); HEMOGLOBIN 13.3 g/dL (13.5-17.5); IMMATURE GRANULOCYTES 0.5 % (0-5); LYMPHOCYTES 25.8 % (15-50); MCH 29.6 pg (26.0-34.0); MCHC 33.3 g/dL (31.0-37.0); MCV 89.1 fL (80.0-100.0); MEAN PLATELET VOLUME 10.2 fL (7.4-10.4); MONOCYTES 6.4 % (2-11); NEUTROPHILS 65.2 % (40-80); RBC 4.49 10x6/uL (4.20-6.10); RDW 13.6 % (11.5-14.5); WBC 8.9 10x3/uL (4.8-10.8)
[2018-04-23 19:39] LABS: PLATELET COUNT 182 10x3/uL (130-400)
[2018-04-23 19:53] LABS: ALBUMIN 3.8 g/dL (3.4-5.0); ALKALINE PHOSPHATASE 88 U/L (46-116); ALT (SGPT) 105 U/L (10-68); BILIRUBIN - TOTAL 0.19 mg/dL (0.2-1.3); CALC OSMOLALITY 277 mosm/kg (275-300); CALCIUM 8.9 mg/dL (8.5-10.1); CARBON DIOXIDE 30.5 mmol/L (21.0-32.0); CHLORIDE - SERUM 99 mmol/L (98-107); CREATININE - SERUM 1.2 mg/dL (0.6-1.3); GLUCOSE 120 mg/dL (74-106); POTASSIUM - SERUM 4.1 mmol/L (3.5-5.1); PROTEIN - SERUM 7.7 g/dL (6.4-8.2); SODIUM 136 mmol/L (136-145); UREA NITROGEN 27 mg/dL (7-18); eGFR NON AFRICAN AMERICAN 74 mL/min (90-120)
[2018-04-23 19:59] LABS: CREATINE KINASE 174 UL (21-232)
[2018-04-23 20:00] LABS: TROPONIN-I < 0.017 ng/mL (0.000-0.060)
[2018-04-23 20:57] VITALS: BP 114/70
== END 2018-04-23 20:58 | disposition home or self-care (01) ==
LOC: D.ER 18:47
PROVIDERS: Family Medicine
DX: Z76.5 Malingerer [conscious simulation] (principal); F17.200 Nicotine dependence, unspecified, uncomplicated

== ENCOUNTER 2018-04-25 13:31 | Emergency (ER) | payer MEDICAID ==
[~2018-04-25] VITALS: Ht 180.3 cm; Wt 94.1 kg
[2018-04-25 13:36] VITALS: BP 146/80; Ht 180.3 cm; Wt 94.1 kg
[2018-04-25 14:06] LABS: BASOPHILS 0.4 % (0-2); EOSINOPHILS 1.9 % (0-7); HEMATOCRIT 37.5 % (42.0-54.0); HEMOGLOBIN 12.4 g/dL (13.5-17.5); IMMATURE GRANULOCYTES 0.2 % (0-5); LYMPHOCYTES 29.3 % (15-50); MCH 29.7 pg (26.0-34.0); MCHC 33.1 g/dL (31.0-37.0); MCV 89.9 fL (80.0-100.0); MEAN PLATELET VOLUME 10.4 fL (7.4-10.4); NEUTROPHILS 59.2 % (40-80); PLATELET COUNT 209 10x3/uL (130-400); RBC 4.17 10x6/uL (4.20-6.10); RDW 13.8 % (11.5-14.5); WBC 9.1 10x3/uL (4.8-10.8)
[2018-04-25 14:21] LABS: ALBUMIN 3.6 g/dL (3.4-5.0); ALKALINE PHOSPHATASE 97 U/L (46-116); BILIRUBIN - TOTAL 0.26 mg/dL (0.2-1.3); CALCIUM 8.1 mg/dL (8.5-10.1); CARBON DIOXIDE 29.2 mmol/L (21.0-32.0); CHLORIDE - SERUM 104 mmol/L (98-107); CREATININE - SERUM 1.1 mg/dL (0.6-1.3); GLUCOSE 108 mg/dL (74-106); POTASSIUM - SERUM 4.2 mmol/L (3.5-5.1); PROTEIN - SERUM 7.5 g/dL (6.4-8.2); SODIUM 138 mmol/L (136-145); eGFR NON AFRICAN AMERICAN 82 mL/min (90-120)
[2018-04-25 14:24] LABS: ALT (SGPT) 135 U/L (10-68); CALC OSMOLALITY 278 mosm/kg (275-300); UREA NITROGEN 18 mg/dL (7-18)
[2018-04-25 15:37] LABS: APPEARANCE CLEAR (CLEAR); COLOR YELLOW (YELLOW)
[2018-04-25 15:38] LABS: BILIRUBIN NEGATIVE (NEGATIVE); GLUCOSE NEGATIVE (NEGATIVE); KETONE NEGATIVE (NEGATIVE); NITRITE NEGATIVE (NEGATIVE); PROTEIN NEGATIVE (NEGATIVE); UROBILINOGEN NORMAL (NORMAL)
[2018-04-25 15:42] LABS: UDS - AMPHET NEGATIVE QUAL (NEGATIVE); UDS - BARB NEGATIVE QUAL (NEGATIVE); UDS - BENZO POSITIVE QUAL (NEGATIVE); UDS - COCAINE NEGATIVE QUAL (NEGATIVE); UDS - OPIATE NEGATIVE QUAL (NEGATIVE); UDS - PCP NEGATIVE QUAL (NEGATIVE); UDS - THC NEGATIVE QUAL (NEGATIVE)
== END 2018-04-25 17:21 | disposition left against medical advice (07) ==
LOC: D.ER 13:31
PROVIDERS: Family Medicine
DX: F32.9 Major depressive disorder, single episode, unspecified (principal); R45.851 Suicidal ideations; F17.200 Nicotine dependence, unspecified, uncomplicated

== ENCOUNTER → 2018-05-02 | Emergency (ER) | payer MEDICAID ==
[2018-05-02 20:48] LABS: BASOPHILS 0.5 % (0-2); HEMATOCRIT 39.7 % (42.0-54.0); HEMOGLOBIN 13.1 g/dL (13.5-17.5); IMMATURE GRANULOCYTES 0.8 % (0-5); LYMPHOCYTES 34.2 % (15-50); MEAN PLATELET VOLUME 10.4 fL (7.4-10.4); MONOCYTES 10.8 % (2-11); NEUTROPHILS 50.7 % (40-80); PLATELET COUNT 196 10x3/uL (130-400); RBC 4.51 10x6/uL (4.20-6.10); RDW 13.9 % (11.5-14.5); WBC 7.4 10x3/uL (4.8-10.8)
[2018-05-02 21:12] LABS: ALBUMIN 3.7 g/dL (3.4-5.0); BILIRUBIN - TOTAL 0.17 mg/dL (0.2-1.3); CALCIUM 9.5 mg/dL (8.5-10.1); CARBON DIOXIDE 29.3 mmol/L (21.0-32.0); CREATININE - SERUM 1.2 mg/dL (0.6-1.3); MAGNESIUM - SERUM 2.1 mg/dL (1.8-2.4); POTASSIUM - SERUM 4.3 mmol/L (3.5-5.1); PROTEIN - SERUM 7.8 g/dL (6.4-8.2)
[2018-05-02 22:21] LABS: APPEARANCE CLEAR (CLEAR); BILIRUBIN NEGATIVE (NEGATIVE); COLOR YELLOW (YELLOW); GLUCOSE NEGATIVE (NEGATIVE); KETONE NEGATIVE (NEGATIVE); NITRITE NEGATIVE (NEGATIVE); PROTEIN NEGATIVE (NEGATIVE); UROBILINOGEN NORMAL (NORMAL)
[2018-05-02 23:45] LABS: UDS - AMPHET NEGATIVE QUAL (NEGATIVE); UDS - BARB NEGATIVE QUAL (NEGATIVE); UDS - BENZO NEGATIVE QUAL (NEGATIVE); UDS - COCAINE NEGATIVE QUAL (NEGATIVE); UDS - OPIATE NEGATIVE QUAL (NEGATIVE); UDS - PCP NEGATIVE QUAL (NEGATIVE); UDS - THC NEGATIVE QUAL (NEGATIVE)
[2018-05-03 03:35] VITALS: BP 137/86; Ht 180.3 cm
== END | disposition home or self-care (01) ==
LOC: D.ER 19:26
PROVIDERS: Family Medicine
DX: R45.851 Suicidal ideations (principal); Z76.5 Malingerer [conscious simulation]; F17.200 Nicotine dependence, unspecified, uncomplicated

== ENCOUNTER 2018-05-14 16:01 | Emergency (ER) | payer MEDICAID | END 2018-05-14 20:00 | disposition left against medical advice (07) | LOC: D.ER 16:01 | DX: R05 Cough (principal) ==

== ENCOUNTER 2018-05-22 21:24 | Emergency (ER) | payer MEDICAID ==
[~2018-05-22] VITALS: Ht 180.3 cm; Wt 99.3 kg
[2018-05-22 21:38] VITALS: Ht 180.3 cm; Wt 99.3 kg
[2018-05-22] MEDS ORDERED: NORVASC5 MG PO (22:33)
[2018-05-22] MEDS ORDERED: METOPROLOL TART50 MG PO (22:33)
[2018-05-22 23:03] VITALS: BP 140/80
== END 2018-05-22 23:04 | disposition home or self-care (01) ==
LOC: D.ER 21:24
DX: I10 Essential (primary) hypertension (principal); Z91.14 Patient's other noncompliance with medication regimen; F17.200 Nicotine dependence, unspecified, uncomplicated

== ENCOUNTER 2018-05-23 19:56 | Emergency (ER) | payer MEDICAID ==
[~2018-05-23] VITALS: Ht 180.3 cm; Wt 105.5 kg
[2018-05-23 20:11] VITALS: Ht 180.3 cm; Wt 105.5 kg
[2018-05-23 20:55] LABS: BASOPHILS 0.6 % (0-2); EOSINOPHILS 2.2 % (0-7); HEMATOCRIT 37.9 % (42.0-54.0); HEMOGLOBIN 12.8 g/dL (13.5-17.5); IMMATURE GRANULOCYTES 0.2 % (0-5); LYMPHOCYTES 33.3 % (15-50); MCHC 33.8 g/dL (31.0-37.0); MCV 85.9 fL (80.0-100.0); MEAN PLATELET VOLUME 10.4 fL (7.4-10.4); MONOCYTES 10.7 % (2-11); PLATELET COUNT 172 10x3/uL (130-400); RBC 4.41 10x6/uL (4.20-6.10); RDW 13.9 % (11.5-14.5)
[2018-05-23 21:08] LABS: ALBUMIN 3.6 g/dL (3.4-5.0); ANION GAP 14.1 mmol/L (8-16); BILIRUBIN - TOTAL 0.33 mg/dL (0.2-1.3); CALCIUM 8.5 mg/dL (8.5-10.1); CARBON DIOXIDE 26.4 mmol/L (21.0-32.0); CREATININE - SERUM 1.2 mg/dL (0.6-1.3); POTASSIUM - SERUM 3.5 mmol/L (3.5-5.1); PROTEIN - SERUM 7.2 g/dL (6.4-8.2)
[2018-05-23 23:39] LABS: UDS - AMPHET NEGATIVE QUAL (NEGATIVE); UDS - BARB NEGATIVE QUAL (NEGATIVE); UDS - BENZO POSITIVE QUAL (NEGATIVE); UDS - COCAINE NEGATIVE QUAL (NEGATIVE); UDS - OPIATE NEGATIVE QUAL (NEGATIVE); UDS - PCP NEGATIVE QUAL (NEGATIVE); UDS - THC NEGATIVE QUAL (NEGATIVE)
[2018-05-23 23:43] LABS: APPEARANCE CLEAR (CLEAR); BILIRUBIN NEGATIVE (NEGATIVE); COLOR YELLOW (YELLOW); GLUCOSE NEGATIVE (NEGATIVE); KETONE NEGATIVE (NEGATIVE); NITRITE NEGATIVE (NEGATIVE); PROTEIN NEGATIVE (NEGATIVE); SPECIFIC GRAVITY 1.015 (1.005-1.020); UROBILINOGEN NORMAL (NORMAL)
[2018-05-23 23:44] LABS: BACTERIA FEW /hpf (NONE SEEN); EPITHELIAL CELLS 0-5 /hpf (0-5); RED CELLS - URINE NONE SEEN /hpf (0-5); WHITE CELLS - URINE 0-5 /hpf (0-5)
[2018-05-24 03:25] VITALS: BP 132/84
== END 2018-05-24 03:35 ==
LOC: D.ER 19:56
PROVIDERS: Family Medicine
DX: R45.851 Suicidal ideations (principal); F32.9 Major depressive disorder, single episode, unspecified; Z59.0 Homelessness; F17.200 Nicotine dependence, unspecified, uncomplicated

== ENCOUNTER 2018-06-04 16:27 | Emergency (ER) | payer MEDICAID ==
[~2018-06-04] VITALS: Ht 180.3 cm; Wt 77.3 kg
[2018-06-04 16:31] VITALS: Ht 180.3 cm; Wt 77.3 kg
[2018-06-04 17:07] LABS: APPEARANCE CLEAR (CLEAR); BILIRUBIN NEGATIVE (NEGATIVE); COLOR STRAW (YELLOW); GLUCOSE NEGATIVE (NEGATIVE); KETONE NEGATIVE (NEGATIVE); NITRITE NEGATIVE (NEGATIVE); PROTEIN NEGATIVE (NEGATIVE); SPECIFIC GRAVITY 1.015 (1.005-1.020); UROBILINOGEN NORMAL (NORMAL)
[2018-06-04 17:08] LABS: BASOPHILS 0.2 % (0-2); EOSINOPHILS 0.7 % (0-7); HEMOGLOBIN 13.9 g/dL (13.5-17.5); IMMATURE GRANULOCYTES 0.2 % (0-5); LYMPHOCYTES 26.1 % (15-50); MCH 29.2 pg (26.0-34.0); MCHC 33.9 g/dL (31.0-37.0); MCV 86.1 fL (80.0-100.0); MEAN PLATELET VOLUME 10.4 fL (7.4-10.4); MONOCYTES 9.5 % (2-11); NEUTROPHILS 63.3 % (40-80); PLATELET COUNT 172 10x3/uL (130-400); RBC 4.76 10x6/uL (4.20-6.10); RDW 13.8 % (11.5-14.5)
[2018-06-04 17:34] LABS: ALKALINE PHOSPHATASE 96 U/L (46-116); ALT (SGPT) 58 U/L (10-68); AMYLASE - SERUM 72 U/L (25-115); BILIRUBIN - TOTAL 0.19 mg/dL (0.2-1.3); CALC OSMOLALITY 275 mosm/kg (275-300); CALCIUM 9.5 mg/dL (8.5-10.1); CARBON DIOXIDE 28.3 mmol/L (21.0-32.0); CHLORIDE - SERUM 100 mmol/L (98-107); GLUCOSE 104 mg/dL (74-106); LIPASE 151 U/L (73-393); POTASSIUM - SERUM 4.2 mmol/L (3.5-5.1); SODIUM 137 mmol/L (136-145); UREA NITROGEN 19 mg/dL (7-18); eGFR NON AFRICAN AMERICAN > 90 mL/min (90-120)
[2018-06-04] MEDS ORDERED: SEROQUEL400 MG PO (18:40)
[2018-06-04] MEDS ORDERED: XANAX1 MG PO (18:40)
[2018-06-04] MEDS ORDERED: ESKALITH CR450 M1 PO (18:40)
[2018-06-04 18:54] VITALS: BP 122/88
== END 2018-06-04 18:55 | disposition home or self-care (01) ==
LOC: D.ER 16:27
PROVIDERS: Emergency Medicine
DX: R10.12 Left upper quadrant pain (principal); R11.2 Nausea with vomiting, unspecified

== ENCOUNTER → 2018-06-04 | Emergency (ER) | payer MEDICAID ==
[~2018-06-04] VITALS: Ht 180.3 cm; Wt 100.9 kg
[2018-06-04 19:54] VITALS: Ht 180.3 cm; Wt 100.9 kg
[2018-06-04 22:24] VITALS: BP 129/86
== END | disposition home or self-care (01) ==
LOC: D.ER 19:46
DX: K21.9 Gastro-esophageal reflux disease without esophagitis (principal); R11.2 Nausea with vomiting, unspecified

== ENCOUNTER 2018-06-20 02:20 | Emergency (ER) | payer MEDICAID ==
[~2018-06-20] VITALS: Ht 180.3 cm; Wt 95.3 kg
[2018-06-20 02:23] VITALS: Ht 180.3 cm; Wt 95.3 kg
[2018-06-20 02:48] LABS: BASOPHILS 0.3 % (0-2); EOSINOPHILS 2.5 % (0-7); HEMATOCRIT 39.5 % (42.0-54.0); HEMOGLOBIN 13.2 g/dL (13.5-17.5); IMMATURE GRANULOCYTES 0.4 % (0-5); LYMPHOCYTES 36.8 % (15-50); MCH 28.3 pg (26.0-34.0); MCHC 33.4 g/dL (31.0-37.0); MCV 84.8 fL (80.0-100.0); MEAN PLATELET VOLUME 10.7 fL (7.4-10.4); MONOCYTES 9.6 % (2-11); NEUTROPHILS 50.4 % (40-80); PLATELET COUNT 187 10x3/uL (130-400); RBC 4.66 10x6/uL (4.20-6.10); WBC 6.8 10x3/uL (4.8-10.8)
[2018-06-20 02:56] LABS: LITHIUM 0.21 mmol/L (0.60-1.20); SALICYLATES 1.6 mg/dL (2.8-20.0)
[2018-06-20 03:03] LABS: ALBUMIN 3.7 g/dL (3.4-5.0); ANION GAP 10.6 mmol/L (8-16); BILIRUBIN - TOTAL 0.14 mg/dL (0.2-1.3); CALCIUM 9.2 mg/dL (8.5-10.1); CARBON DIOXIDE 32.3 mmol/L (21.0-32.0); CREATININE - SERUM 1.2 mg/dL (0.6-1.3); MAGNESIUM - SERUM 2.3 mg/dL (1.8-2.4); POTASSIUM - SERUM 3.9 mmol/L (3.5-5.1); PROTEIN - SERUM 7.7 g/dL (6.4-8.2)
[2018-06-20 05:06] VITALS: BP 110/70
== END 2018-06-20 05:02 | disposition home or self-care (01) ==
LOC: D.ER 02:20
PROVIDERS: Family Medicine
DX: R45.851 Suicidal ideations (principal); F32.9 Major depressive disorder, single episode, unspecified

== ENCOUNTER 2018-06-27 16:06 | Emergency (ER) | payer MEDICAID ==
[~2018-06-27] VITALS: Ht 180.3 cm; Wt 102.3 kg
[2018-06-27 16:24] VITALS: Ht 180.3 cm; Wt 102.3 kg
[2018-06-27 17:11] LABS: BASOPHILS 0.3 % (0-2); EOSINOPHILS 1.1 % (0-7); HEMATOCRIT 37.6 % (42.0-54.0); HEMOGLOBIN 12.5 g/dL (13.5-17.5); IMMATURE GRANULOCYTES 0.2 % (0-5); LYMPHOCYTES 22.5 % (15-50); MCH 28.1 pg (26.0-34.0); MCHC 33.2 g/dL (31.0-37.0); MCV 84.5 fL (80.0-100.0); MEAN PLATELET VOLUME 10.1 fL (7.4-10.4); NEUTROPHILS 65.9 % (40-80); PLATELET COUNT 164 10x3/uL (130-400); RBC 4.45 10x6/uL (4.20-6.10); RDW 14.5 % (11.5-14.5); WBC 9.1 10x3/uL (4.8-10.8)
[2018-06-27 17:25] LABS: ALBUMIN 3.8 g/dL (3.4-5.0); ALKALINE PHOSPHATASE 91 U/L (46-116); ALT (SGPT) 51 U/L (10-68); BILIRUBIN - TOTAL 0.32 mg/dL (0.2-1.3); CALC OSMOLALITY 283 mosm/kg (275-300); CALCIUM 8.8 mg/dL (8.5-10.1); CARBON DIOXIDE 30.3 mmol/L (21.0-32.0); CHLORIDE - SERUM 103 mmol/L (98-107); CREATININE - SERUM 1.1 mg/dL (0.6-1.3); POTASSIUM - SERUM 4.1 mmol/L (3.5-5.1); PROTEIN - SERUM 7.6 g/dL (6.4-8.2); SODIUM 141 mmol/L (136-145); UREA NITROGEN 21 mg/dL (7-18); eGFR NON AFRICAN AMERICAN 82 mL/min (90-120)
[2018-06-27 17:26] LABS: GLUCOSE 102 mg/dL (74-106)
[2018-06-27 17:31] LABS: TROPONIN-I < 0.017 ng/mL (0.000-0.060)
[2018-06-27 20:21] VITALS: BP 124/79
== END 2018-06-27 20:21 | disposition home or self-care (01) ==
LOC: D.ER 16:06
PROVIDERS: Family Medicine
DX: R07.81 Pleurodynia (principal); I10 Essential (primary) hypertension; F17.200 Nicotine dependence, unspecified, uncomplicated

== ENCOUNTER 2018-09-16 19:20 | Emergency (ER) | payer MEDICAID ==
[2018-09-16] MEDS ORDERED: BYSTOLIC PO (19:36)
[2018-09-16 19:52] LABS: BASOPHILS 0.3 % (0-2); EOSINOPHILS 1.9 % (0-7); HEMATOCRIT 39.3 % (42.0-54.0); HEMOGLOBIN 13.4 g/dL (13.5-17.5); IMMATURE GRANULOCYTES 0.1 % (0-5); LYMPHOCYTES 32.9 % (15-50); MCHC 34.1 g/dL (31.0-37.0); MCV 85.1 fL (80.0-100.0); MEAN PLATELET VOLUME 10.6 fL (7.4-10.4); MONOCYTES 7.9 % (2-11); NEUTROPHILS 56.9 % (40-80); PLATELET COUNT 179 10x3/uL (130-400); RBC 4.62 10x6/uL (4.20-6.10); RDW 16.6 % (11.5-14.5); WBC 6.7 10x3/uL (4.8-10.8)
[2018-09-16 20:01] LABS: LITHIUM 0.42 mmol/L (0.60-1.20); SALICYLATES 4.8 mg/dL (2.8-20.0)
[2018-09-16 20:06] LABS: ACETAMINOPHEN 15.4 ug/mL (10.0-30.0); ALBUMIN 3.5 g/dL (3.4-5.0); ALKALINE PHOSPHATASE 70 U/L (46-116); ALT (SGPT) 38 U/L (10-68); CALC OSMOLALITY 282 mosm/kg (275-300); CALCIUM 8.5 mg/dL (8.5-10.1); CARBON DIOXIDE 27.1 mmol/L (21.0-32.0); CHLORIDE - SERUM 107 mmol/L (98-107); CREATININE - SERUM 0.9 mg/dL (0.6-1.3); GLUCOSE 94 mg/dL (74-106); POTASSIUM - SERUM 3.2 mmol/L (3.5-5.1); PROTEIN - SERUM 7.4 g/dL (6.4-8.2); SODIUM 143 mmol/L (136-145); UREA NITROGEN 6 mg/dL (7-18); eGFR NON AFRICAN AMERICAN > 90 mL/min (90-120)
[2018-09-16 20:09] LABS: APPEARANCE CLEAR (CLEAR); BILIRUBIN NEGATIVE (NEGATIVE); COLOR YELLOW (YELLOW); GLUCOSE NEGATIVE (NEGATIVE); KETONE NEGATIVE (NEGATIVE); NITRITE NEGATIVE (NEGATIVE); PROTEIN NEGATIVE (NEGATIVE); SPECIFIC GRAVITY 1.025 (1.005-1.020); UROBILINOGEN NORMAL (NORMAL)
[2018-09-16 20:40] LABS: UDS - AMPHET NEGATIVE QUAL (NEGATIVE); UDS - BARB NEGATIVE QUAL (NEGATIVE); UDS - BENZO NEGATIVE QUAL (NEGATIVE); UDS - COCAINE NEGATIVE QUAL (NEGATIVE); UDS - OPIATE NEGATIVE QUAL (NEGATIVE); UDS - PCP NEGATIVE QUAL (NEGATIVE); UDS - THC POSITIVE QUAL (NEGATIVE)
[2018-09-16] MEDS ORDERED: DIOVAN80 MG PO (22:37)
[2018-09-16] MEDS ORDERED: LITHIUM CARBON300 MG PO (22:37)
[2018-09-16] MEDS ORDERED: NORVASC10 MG PO (22:38)
== END 2018-09-17 00:37 ==
LOC: D.ER 19:20
PROVIDERS: Family Medicine
DX: R45.851 Suicidal ideations (principal); F32.9 Major depressive disorder, single episode, unspecified; F25.9 Schizoaffective disorder, unspecified

== ENCOUNTER 2018-09-25 00:23 | Emergency (ER) | payer MEDICAID ==
[~2018-09-25] VITALS: Ht 180.3 cm; Wt 89.5 kg
[~2018-09-25 00:23] MED LIST changes: +BYSTOLIC PO; +DIOVAN80 MG PO
[2018-09-25 00:42] VITALS: BP 103/61; Ht 180.3 cm; Wt 89.5 kg
[2018-09-25 00:56] LABS: APPEARANCE CLEAR (CLEAR); COLOR STRAW (YELLOW)
[2018-09-25 00:57] LABS: BILIRUBIN NEGATIVE (NEGATIVE); GLUCOSE NEGATIVE (NEGATIVE); KETONE NEGATIVE (NEGATIVE); NITRITE NEGATIVE (NEGATIVE); PROTEIN NEGATIVE (NEGATIVE); SPECIFIC GRAVITY 1.015 (1.005-1.020); UROBILINOGEN NORMAL (NORMAL)
[2018-09-25 00:58] LABS: UDS - AMPHET NEGATIVE QUAL (NEGATIVE); UDS - BARB NEGATIVE QUAL (NEGATIVE); UDS - BENZO NEGATIVE QUAL (NEGATIVE); UDS - COCAINE NEGATIVE QUAL (NEGATIVE); UDS - OPIATE NEGATIVE QUAL (NEGATIVE); UDS - PCP NEGATIVE QUAL (NEGATIVE); UDS - THC POSITIVE QUAL (NEGATIVE)
[2018-09-25 01:18] LABS: HEMATOCRIT 38.4 % (42.0-54.0); HEMOGLOBIN 12.8 g/dL (13.5-17.5); LITHIUM 0.53 mmol/L (0.60-1.20); MCH 29.3 pg (26.0-34.0); MCHC 33.3 g/dL (31.0-37.0); MCV 87.9 fL (80.0-100.0); MEAN PLATELET VOLUME 10.3 fL (7.4-10.4); NEUTROPHILS 59.8 % (40-80); PLATELET COUNT 178 10x3/uL (130-400); RBC 4.37 10x6/uL (4.20-6.10); RDW 16.6 % (11.5-14.5); SALICYLATES 1.9 mg/dL (2.8-20.0); WBC 7.5 10x3/uL (4.8-10.8)
[2018-09-25 01:26] LABS: ALBUMIN 3.6 g/dL (3.4-5.0); ALKALINE PHOSPHATASE 79 U/L (46-116); ALT (SGPT) 63 U/L (10-68); BILIRUBIN - TOTAL 0.25 mg/dL (0.2-1.3); CALC OSMOLALITY 285 mosm/kg (275-300); CALCIUM 8.7 mg/dL (8.5-10.1); CARBON DIOXIDE 27.7 mmol/L (21.0-32.0); CHLORIDE - SERUM 105 mmol/L (98-107); CREATININE - SERUM 1.1 mg/dL (0.6-1.3); GLUCOSE 118 mg/dL (74-106); POTASSIUM - SERUM 3.8 mmol/L (3.5-5.1); PROTEIN - SERUM 7.2 g/dL (6.4-8.2); SODIUM 142 mmol/L (136-145); UREA NITROGEN 17 mg/dL (7-18); eGFR NON AFRICAN AMERICAN 82 mL/min (90-120)
== END 2018-09-25 13:23 ==
LOC: D.ER 00:23
PROVIDERS: Family Medicine
DX: R45.851 Suicidal ideations (principal); F17.200 Nicotine dependence, unspecified, uncomplicated

== ENCOUNTER 2018-09-28 19:58 | Emergency (ER) | payer MEDICAID ==
[2018-09-28 20:21] VITALS: BMI 27.9
[2018-09-28 21:04] LABS: BASOPHILS 0.5 % (0-2); EOSINOPHILS 2.8 % (0-7); HEMATOCRIT 38.6 % (42.0-54.0); HEMOGLOBIN 12.9 g/dL (13.5-17.5); IMMATURE GRANULOCYTES 0.7 % (0-5); LYMPHOCYTES 30.3 % (15-50); MCH 29.2 pg (26.0-34.0); MCHC 33.4 g/dL (31.0-37.0); MCV 87.3 fL (80.0-100.0); MEAN PLATELET VOLUME 10.3 fL (7.4-10.4); MONOCYTES 10.9 % (2-11); NEUTROPHILS 54.8 % (40-80); PLATELET COUNT 190 10x3/uL (130-400); RBC 4.42 10x6/uL (4.20-6.10); RDW 16.4 % (11.5-14.5); WBC 6.1 10x3/uL (4.8-10.8)
[2018-09-28 21:21] LABS: ALBUMIN 3.8 g/dL (3.4-5.0); ANION GAP 10.9 mmol/L (8-16); BILIRUBIN - TOTAL 0.28 mg/dL (0.2-1.3); CALCIUM 9.1 mg/dL (8.5-10.1); CARBON DIOXIDE 29.5 mmol/L (21.0-32.0); CREATININE - SERUM 1.6 mg/dL (0.6-1.3); MAGNESIUM - SERUM 2.2 mg/dL (1.8-2.4); POTASSIUM - SERUM 4.4 mmol/L (3.5-5.1); PROTEIN - SERUM 7.7 g/dL (6.4-8.2)
[2018-09-28 21:26] LABS: UDS - AMPHET NEGATIVE QUAL (NEGATIVE); UDS - BARB NEGATIVE QUAL (NEGATIVE); UDS - BENZO NEGATIVE QUAL (NEGATIVE); UDS - COCAINE NEGATIVE QUAL (NEGATIVE); UDS - OPIATE POSITIVE QUAL (NEGATIVE); UDS - PCP NEGATIVE QUAL (NEGATIVE); UDS - THC NEGATIVE QUAL (NEGATIVE)
[2018-09-28 21:41] LABS: APPEARANCE CLEAR (CLEAR); BILIRUBIN NEGATIVE (NEGATIVE); COLOR STRAW (YELLOW); GLUCOSE NEGATIVE (NEGATIVE); KETONE NEGATIVE (NEGATIVE); NITRITE NEGATIVE (NEGATIVE); PROTEIN NEGATIVE (NEGATIVE); UROBILINOGEN NORMAL (NORMAL)
[2018-09-29 05:22] VITALS: BP 127/67
== END 2018-09-29 05:22 ==
LOC: D.ER 19:58
PROVIDERS: Emergency Medicine
DX: R45.851 Suicidal ideations (principal)

== ENCOUNTER 2018-10-03 14:09 | Emergency (ER) | payer MEDICAID ==
[2018-10-03 14:37] VITALS: BMI 25.1
[2018-10-03 15:09] LABS: UDS - AMPHET NEGATIVE QUAL (NEGATIVE); UDS - BARB NEGATIVE QUAL (NEGATIVE); UDS - BENZO POSITIVE QUAL (NEGATIVE); UDS - COCAINE NEGATIVE QUAL (NEGATIVE); UDS - OPIATE NEGATIVE QUAL (NEGATIVE); UDS - PCP NEGATIVE QUAL (NEGATIVE); UDS - THC POSITIVE QUAL (NEGATIVE)
[2018-10-03 15:16] LABS: APPEARANCE CLEAR (CLEAR); BILIRUBIN NEGATIVE (NEGATIVE); COLOR YELLOW (YELLOW); GLUCOSE NEGATIVE (NEGATIVE); KETONE NEGATIVE (NEGATIVE); NITRITE NEGATIVE (NEGATIVE); PROTEIN NEGATIVE (NEGATIVE); UROBILINOGEN NORMAL (NORMAL)
[2018-10-03 15:17] LABS: BACTERIA FEW /hpf (NONE SEEN); RED CELLS - URINE OCC /hpf (0-5); WHITE CELLS - URINE 0-5 /hpf (0-5)
[2018-10-03 15:32] LABS: BASOPHILS 0.6 % (0-2); EOSINOPHILS 2.9 % (0-7); HEMATOCRIT 41.9 % (42.0-54.0); HEMOGLOBIN 14.2 g/dL (13.5-17.5); IMMATURE GRANULOCYTES 0.4 % (0-5); LYMPHOCYTES 31.3 % (15-50); MCH 29.6 pg (26.0-34.0); MCHC 33.9 g/dL (31.0-37.0); MCV 87.5 fL (80.0-100.0); MEAN PLATELET VOLUME 9.9 fL (7.4-10.4); NEUTROPHILS 55.8 % (40-80); RBC 4.79 10x6/uL (4.20-6.10); RDW 16.8 % (11.5-14.5); WBC 8.4 10x3/uL (4.8-10.8)
[2018-10-03 15:38] LABS: PLATELET COUNT 241 10x3/uL (130-400)
[2018-10-03 15:55] LABS: ALBUMIN 4.1 g/dL (3.4-5.0); ALKALINE PHOSPHATASE 86 U/L (46-116); ALT (SGPT) 79 U/L (10-68); BILIRUBIN - TOTAL 0.25 mg/dL (0.2-1.3); CALC OSMOLALITY 282 mosm/kg (275-300); CALCIUM 9.4 mg/dL (8.5-10.1); CHLORIDE - SERUM 105 mmol/L (98-107); CREATININE - SERUM 0.9 mg/dL (0.6-1.3); GLUCOSE 113 mg/dL (74-106); MAGNESIUM - SERUM 2.3 mg/dL (1.8-2.4); POTASSIUM - SERUM 3.6 mmol/L (3.5-5.1); SODIUM 141 mmol/L (136-145); UREA NITROGEN 14 mg/dL (7-18); eGFR NON AFRICAN AMERICAN > 90 mL/min (90-120)
[2018-10-04 05:12] VITALS: BP 114/71
== END 2018-10-04 06:02 ==
LOC: D.ER 14:09
PROVIDERS: Emergency Medicine
DX: R45.851 Suicidal ideations (principal); F19.10 Other psychoactive substance abuse, uncomplicated; Z76.5 Malingerer [conscious simulation]

== ENCOUNTER 2018-10-09 16:34 | Emergency (ER) | payer MEDICAID ==
[~2018-10-09] VITALS: Ht 180.3 cm; Wt 95.9 kg
[2018-10-09 16:49] VITALS: Ht 180.3 cm; Wt 95.9 kg
[2018-10-09 17:16] LABS: APPEARANCE CLEAR (CLEAR); BILIRUBIN NEGATIVE (NEGATIVE); COLOR STRAW (YELLOW); GLUCOSE NEGATIVE (NEGATIVE); KETONE NEGATIVE (NEGATIVE); NITRITE NEGATIVE (NEGATIVE); PROTEIN NEGATIVE (NEGATIVE); UROBILINOGEN NORMAL (NORMAL)
[2018-10-09 17:20] LABS: BASOPHILS 0.5 % (0-2); EOSINOPHILS 2.8 % (0-7); HEMATOCRIT 38.4 % (42.0-54.0); HEMOGLOBIN 12.8 g/dL (13.5-17.5); IMMATURE GRANULOCYTES 0.6 % (0-5); LYMPHOCYTES 23.6 % (15-50); MCH 29.2 pg (26.0-34.0); MCHC 33.3 g/dL (31.0-37.0); MCV 87.7 fL (80.0-100.0); MEAN PLATELET VOLUME 10.2 fL (7.4-10.4); MONOCYTES 7.6 % (2-11); NEUTROPHILS 64.9 % (40-80); PLATELET COUNT 209 10x3/uL (130-400); RBC 4.38 10x6/uL (4.20-6.10); WBC 8.3 10x3/uL (4.8-10.8)
[2018-10-09 17:31] LABS: UDS - AMPHET NEGATIVE QUAL (NEGATIVE); UDS - BARB NEGATIVE QUAL (NEGATIVE); UDS - BENZO NEGATIVE QUAL (NEGATIVE); UDS - COCAINE NEGATIVE QUAL (NEGATIVE); UDS - OPIATE NEGATIVE QUAL (NEGATIVE); UDS - PCP NEGATIVE QUAL (NEGATIVE); UDS - THC NEGATIVE QUAL (NEGATIVE)
[2018-10-09 17:33] LABS: ALBUMIN 3.9 g/dL (3.4-5.0); ANION GAP 6.8 mmol/L (8-16); BILIRUBIN - TOTAL 0.25 mg/dL (0.2-1.3); CARBON DIOXIDE 31.2 mmol/L (21.0-32.0); CREATININE - SERUM 1.3 mg/dL (0.6-1.3); MAGNESIUM - SERUM 2.2 mg/dL (1.8-2.4); PROTEIN - SERUM 7.4 g/dL (6.4-8.2)
[2018-10-10 00:06] VITALS: BP 138/82
== END 2018-10-10 00:10 ==
LOC: D.ER 16:34
PROVIDERS: Family Medicine
DX: F32.9 Major depressive disorder, single episode, unspecified (principal); K02.9 Dental caries, unspecified; R45.851 Suicidal ideations

== ENCOUNTER 2018-10-15 19:25 | Emergency (ER) | payer MEDICAID ==
[~2018-10-15] VITALS: Ht 180.3 cm; Wt 87.7 kg
[2018-10-15 19:35] VITALS: Ht 180.3 cm; Wt 87.7 kg
[2018-10-15 20:52] LABS: BASOPHILS 0.4 % (0-2); EOSINOPHILS 3.2 % (0-7); HEMATOCRIT 38.5 % (42.0-54.0); HEMOGLOBIN 12.6 g/dL (13.5-17.5); IMMATURE GRANULOCYTES 0.4 % (0-5); LYMPHOCYTES 30.4 % (15-50); MCHC 32.7 g/dL (31.0-37.0); MCV 88.7 fL (80.0-100.0); MEAN PLATELET VOLUME 10.4 fL (7.4-10.4); MONOCYTES 10.9 % (2-11); NEUTROPHILS 54.7 % (40-80); PLATELET COUNT 188 10x3/uL (130-400); RBC 4.34 10x6/uL (4.20-6.10); WBC 8.4 10x3/uL (4.8-10.8)
[2018-10-15 20:55] LABS: APPEARANCE CLEAR (CLEAR); BILIRUBIN NEGATIVE (NEGATIVE); COLOR STRAW (YELLOW); GLUCOSE NEGATIVE (NEGATIVE); KETONE NEGATIVE (NEGATIVE); LITHIUM 0.83 mmol/L (0.60-1.20); NITRITE NEGATIVE (NEGATIVE); PROTEIN NEGATIVE (NEGATIVE); UROBILINOGEN NORMAL (NORMAL)
[2018-10-15 21:02] LABS: ALKALINE PHOSPHATASE 83 U/L (46-116); ALT (SGPT) 59 U/L (10-68); BILIRUBIN - TOTAL 0.19 mg/dL (0.2-1.3); CALC OSMOLALITY 271 mosm/kg (275-300); CALCIUM 9.3 mg/dL (8.5-10.1); CARBON DIOXIDE 26.6 mmol/L (21.0-32.0); CHLORIDE - SERUM 102 mmol/L (98-107); GLUCOSE 90 mg/dL (74-106); POTASSIUM - SERUM 3.5 mmol/L (3.5-5.1); PROTEIN - SERUM 7.3 g/dL (6.4-8.2); SODIUM 136 mmol/L (136-145); UREA NITROGEN 13 mg/dL (7-18); eGFR NON AFRICAN AMERICAN > 90 mL/min (90-120)
[2018-10-15 21:11] LABS: UDS - AMPHET NEGATIVE QUAL (NEGATIVE); UDS - BARB NEGATIVE QUAL (NEGATIVE); UDS - BENZO NEGATIVE QUAL (NEGATIVE); UDS - COCAINE NEGATIVE QUAL (NEGATIVE); UDS - OPIATE NEGATIVE QUAL (NEGATIVE); UDS - PCP NEGATIVE QUAL (NEGATIVE); UDS - THC NEGATIVE QUAL (NEGATIVE)
[2018-10-16] MEDS ORDERED: KEFLEX500 MG PO (06:42)
[2018-10-16 10:26] VITALS: BP 104/64
== END 2018-10-16 06:44 ==
LOC: D.ER 19:25
PROVIDERS: Family Medicine
DX: R45.851 Suicidal ideations (principal); K05.10 Chronic gingivitis, plaque induced; S93.402A Sprain of unspecified ligament of left ankle, initial encounter; Y93.89 Activity, other specified; Y92.89 Other specified places as the place of occurrence of the external cause

== ENCOUNTER 2018-10-16 20:10 | Emergency (ER) | payer MEDICAID ==
[~2018-10-16] VITALS: Ht 180.3 cm; Wt 84.1 kg
[2018-10-16 20:16] VITALS: Ht 180.3 cm; Wt 84.1 kg
[2018-10-16 20:54] LABS: BASOPHILS 0.4 % (0-2); EOSINOPHILS 2.9 % (0-7); HEMATOCRIT 37.6 % (42.0-54.0); HEMOGLOBIN 12.6 g/dL (13.5-17.5); IMMATURE GRANULOCYTES 0.3 % (0-5); LYMPHOCYTES 27.8 % (15-50); MCH 29.2 pg (26.0-34.0); MCHC 33.5 g/dL (31.0-37.0); MCV 87.2 fL (80.0-100.0); MEAN PLATELET VOLUME 9.9 fL (7.4-10.4); MONOCYTES 9.6 % (2-11); PLATELET COUNT 164 10x3/uL (130-400); RBC 4.31 10x6/uL (4.20-6.10); RDW 15.7 % (11.5-14.5); WBC 7.6 10x3/uL (4.8-10.8)
[2018-10-16 21:03] LABS: APPEARANCE CLEAR (CLEAR); BILIRUBIN NEGATIVE (NEGATIVE); COLOR COLORLESS (YELLOW); GLUCOSE NEGATIVE (NEGATIVE); KETONE NEGATIVE (NEGATIVE); NITRITE NEGATIVE (NEGATIVE); PROTEIN NEGATIVE (NEGATIVE); SPECIFIC GRAVITY 1.005 (1.005-1.020); UROBILINOGEN NORMAL (NORMAL)
[2018-10-16 21:09] LABS: ALKALINE PHOSPHATASE 82 U/L (46-116); ALT (SGPT) 55 U/L (10-68); BILIRUBIN - TOTAL 0.22 mg/dL (0.2-1.3); CALC OSMOLALITY 273 mosm/kg (275-300); CARBON DIOXIDE 25.4 mmol/L (21.0-32.0); CHLORIDE - SERUM 102 mmol/L (98-107); CREATININE - SERUM 1.1 mg/dL (0.6-1.3); GLUCOSE 115 mg/dL (74-106); POTASSIUM - SERUM 3.4 mmol/L (3.5-5.1); PROTEIN - SERUM 7.6 g/dL (6.4-8.2); SODIUM 137 mmol/L (136-145); UREA NITROGEN 10 mg/dL (7-18); eGFR NON AFRICAN AMERICAN 82 mL/min (90-120)
[2018-10-16 21:10] LABS: UDS - AMPHET NEGATIVE QUAL (NEGATIVE); UDS - BARB NEGATIVE QUAL (NEGATIVE); UDS - BENZO NEGATIVE QUAL (NEGATIVE); UDS - COCAINE NEGATIVE QUAL (NEGATIVE); UDS - OPIATE NEGATIVE QUAL (NEGATIVE); UDS - PCP NEGATIVE QUAL (NEGATIVE); UDS - THC NEGATIVE QUAL (NEGATIVE)
[2018-10-16 23:48] VITALS: BP 135/76
== END 2018-10-16 23:53 ==
LOC: D.ER 20:10
PROVIDERS: Family Medicine
DX: R45.851 Suicidal ideations (principal); K05.10 Chronic gingivitis, plaque induced; F32.9 Major depressive disorder, single episode, unspecified

== ENCOUNTER 2018-10-24 22:58 | Emergency (ER) | payer MEDICAID ==
[~2018-10-24] VITALS: Ht 180.3 cm; Wt 97.7 kg
[2018-10-24 23:03] VITALS: Ht 180.3 cm; Wt 97.7 kg
[2018-10-24] MEDS ORDERED: PHOSLO667 MG PO (23:23)
[2018-10-24] MEDS ORDERED: ZYLOPRIM100 MG PO (23:23)
[2018-10-24] MEDS ORDERED: LIPITOR40 MG PO (23:23)
[2018-10-24] MEDS ORDERED: CATAPRES0.3 MG PO (23:25)
[2018-10-24] MEDS ORDERED: FOLIC ACID1 MG PO (23:26)
[2018-10-24] MEDS ORDERED: CARDURA2 MG PO (23:26)
[2018-10-24] MEDS ORDERED: COLACE100 MG PO (23:26)
[2018-10-24] MEDS ORDERED: BASAGLAR K100 UNIT/1 SC (23:27)
[2018-10-24] MEDS ORDERED: ISOSORBIDE MONO30 M1 PO (23:28)
[2018-10-24] MEDS ORDERED: KEPPRA500 MG PO (23:28)
[2018-10-24] MEDS ORDERED: NORMODYNE / TR100 MG PO (23:28)
[2018-10-24] MEDS ORDERED: LEVOFLOXACIN500 MG PO (23:28)
[2018-10-24] MEDS ORDERED: ATIVAN1 MG PO (23:29)
[2018-10-24] MEDS ORDERED: NITROSTAT0.4 MG SL (23:30)
[2018-10-24] MEDS ORDERED: PROCARDIA10 MG PO (23:30)
[2018-10-24] MEDS ORDERED: LONITEN10 MG PO (23:30)
[2018-10-24] MEDS ORDERED: ZOFRAN4 MG PO (23:31)
[2018-10-24] MEDS ORDERED: PROTONIX40 MG PO (23:31)
[2018-10-24] MEDS ORDERED: PREDNISONE10 MG PO (23:32)
[2018-10-24] MEDS ORDERED: TRAZODONE HCL150 MG PO (23:32)
[2018-10-24 23:49] LABS: BASOPHILS 0.3 % (0-2); EOSINOPHILS 4.2 % (0-7); HEMATOCRIT 38.3 % (42.0-54.0); HEMOGLOBIN 12.9 g/dL (13.5-17.5); IMMATURE GRANULOCYTES 0.2 % (0-5); LYMPHOCYTES 40.4 % (15-50); MCH 29.7 pg (26.0-34.0); MCHC 33.7 g/dL (31.0-37.0); MEAN PLATELET VOLUME 10.2 fL (7.4-10.4); NEUTROPHILS 45.9 % (40-80); PLATELET COUNT 194 10x3/uL (130-400); RBC 4.35 10x6/uL (4.20-6.10); RDW 15.7 % (11.5-14.5); WBC 6.4 10x3/uL (4.8-10.8)
[2018-10-25 00:11] LABS: LITHIUM 1.1 mmol/L (0.60-1.20); SALICYLATES 4.9 mg/dL (2.8-20.0)
[2018-10-25 00:22] LABS: ALBUMIN 3.9 g/dL (3.4-5.0); ANION GAP 13.5 mmol/L (8-16); BILIRUBIN - TOTAL 0.2 mg/dL (0.2-1.3); CALCIUM 8.9 mg/dL (8.5-10.1); CARBON DIOXIDE 24.8 mmol/L (21.0-32.0); CREATININE - SERUM 1.2 mg/dL (0.6-1.3); POTASSIUM - SERUM 3.3 mmol/L (3.5-5.1); PROTEIN - SERUM 7.4 g/dL (6.4-8.2)
[2018-10-25 01:07] LABS: APPEARANCE CLEAR (CLEAR); BILIRUBIN NEGATIVE (NEGATIVE); COLOR YELLOW (YELLOW); GLUCOSE NEGATIVE (NEGATIVE); KETONE NEGATIVE (NEGATIVE); NITRITE NEGATIVE (NEGATIVE); PROTEIN NEGATIVE (NEGATIVE); SPECIFIC GRAVITY 1.005 (1.005-1.020); UROBILINOGEN NORMAL (NORMAL)
[2018-10-25 01:19] LABS: UDS - AMPHET NEGATIVE QUAL (NEGATIVE); UDS - BARB NEGATIVE QUAL (NEGATIVE); UDS - BENZO NEGATIVE QUAL (NEGATIVE); UDS - COCAINE NEGATIVE QUAL (NEGATIVE); UDS - OPIATE NEGATIVE QUAL (NEGATIVE); UDS - PCP NEGATIVE QUAL (NEGATIVE); UDS - THC NEGATIVE QUAL (NEGATIVE)
[2018-10-25 02:29] VITALS: BP 128/80
== END 2018-10-25 10:16 | disposition home or self-care (01) ==
LOC: D.ER 22:58
PROVIDERS: Family Medicine
DX: F32.9 Major depressive disorder, single episode, unspecified (principal); Z76.5 Malingerer [conscious simulation]; R45.851 Suicidal ideations

== ENCOUNTER 2018-10-27 13:52 | Emergency (ER) | payer MEDICAID ==
[~2018-10-27] VITALS: Ht 180.3 cm; Wt 99.1 kg
[~2018-10-27 13:52] MED LIST changes: +ATIVAN1 MG PO; +BASAGLAR K100 UNIT/1 SC; +CARDURA2 MG PO; +CATAPRES0.3 MG PO; +COLACE100 MG PO; +FOLIC ACID1 MG PO; +ISOSORBIDE MONO30 M1 PO; +LEVOFLOXACIN500 MG PO; +LIPITOR40 MG PO; +LONITEN10 MG PO; +NITROSTAT0.4 MG SL; +NORMODYNE / TR100 MG PO; +PHOSLO667 MG PO; +PREDNISONE10 MG PO; +PROCARDIA10 MG PO; +TRAZODONE HCL150 MG PO; +ZOFRAN4 MG PO; +ZYLOPRIM100 MG PO
[2018-10-27 13:55] VITALS: Ht 180.3 cm; Wt 99.1 kg
[2018-10-27 14:30] LABS: APPEARANCE CLEAR (CLEAR); BILIRUBIN NEGATIVE (NEGATIVE); COLOR YELLOW (YELLOW); GLUCOSE NEGATIVE (NEGATIVE); KETONE NEGATIVE (NEGATIVE); NITRITE NEGATIVE (NEGATIVE); PROTEIN NEGATIVE (NEGATIVE); UROBILINOGEN NORMAL (NORMAL)
[2018-10-27 14:39] LABS: UDS - AMPHET NEGATIVE QUAL (NEGATIVE); UDS - BARB NEGATIVE QUAL (NEGATIVE); UDS - BENZO POSITIVE QUAL (NEGATIVE); UDS - COCAINE NEGATIVE QUAL (NEGATIVE); UDS - OPIATE NEGATIVE QUAL (NEGATIVE); UDS - PCP NEGATIVE QUAL (NEGATIVE); UDS - THC NEGATIVE QUAL (NEGATIVE)
--- NOTE | 2018-10-27 14:55 | NUR ---
Per Dr. Medina's recommendation the patient will require a 1:1 suicide watch, the safety plan and suicide prevention resources are provided and gone over with the patient.
--- NOTE | 2018-10-27 14:59 | NUR ---
PER THE SUICIDE SCORE THE PATIENT IS A HIGH RISK FOR SUICIDE AND HE WILL REQUIRE A SUICIDE WATCH.
[2018-10-27 15:03] LABS: BASOPHILS 0.1 % (0-2); EOSINOPHILS 2.1 % (0-7); HEMATOCRIT 37.7 % (42.0-54.0); HEMOGLOBIN 12.2 g/dL (13.5-17.5); IMMATURE GRANULOCYTES 0.1 % (0-5); LYMPHOCYTES 13.3 % (15-50); MCH 29.3 pg (26.0-34.0); MCHC 32.4 g/dL (31.0-37.0); MCV 90.4 fL (80.0-100.0); MEAN PLATELET VOLUME 10.2 fL (7.4-10.4); MONOCYTES 7.8 % (2-11); NEUTROPHILS 76.6 % (40-80); PLATELET COUNT 152 10x3/uL (130-400); RBC 4.17 10x6/uL (4.20-6.10); RDW 15.8 % (11.5-14.5); WBC 7.9 10x3/uL (4.8-10.8)
[2018-10-27 15:16] LABS: ALBUMIN 3.5 g/dL (3.4-5.0); ANION GAP 13.4 mmol/L (8-16); BILIRUBIN - TOTAL 0.23 mg/dL (0.2-1.3); CALCIUM 8.5 mg/dL (8.5-10.1); CARBON DIOXIDE 24.9 mmol/L (21.0-32.0); CREATININE - SERUM 1.4 mg/dL (0.6-1.3); MAGNESIUM - SERUM 1.9 mg/dL (1.8-2.4); POTASSIUM - SERUM 3.3 mmol/L (3.5-5.1); PROTEIN - SERUM 6.6 g/dL (6.4-8.2)
[2018-10-27 15:17] LABS: LITHIUM 0.35 mmol/L (0.60-1.20); SALICYLATES 2.3 mg/dL (2.8-20.0)
[2018-10-27] MEDS ORDERED: KLONOPIN1 MG PO (20:38)
[2018-10-27] MEDS ORDERED: LITHIUM PO (20:39)
[2018-10-27] MEDS ORDERED: SEROQUEL PO (20:40)
[2018-10-27 22:16] VITALS: BP 124/78
== END 2018-10-28 01:06 ==
LOC: D.ER 13:52
PROVIDERS: Family Medicine
DX: R45.851 Suicidal ideations (principal); F32.9 Major depressive disorder, single episode, unspecified; R73.9 Hyperglycemia, unspecified; E87.6 Hypokalemia; N28.9 Disorder of kidney and ureter, unspecified

== ENCOUNTER 2018-11-10 20:02 | Emergency (ER) | payer MEDICAID ==
[~2018-11-10 20:02] MED LIST changes: +LITHIUM PO; +SEROQUEL PO
[2018-11-10 20:16] VITALS: BMI 27.5
[2018-11-10 20:30] LABS: BASOPHILS 0.4 % (0-2); EOSINOPHILS 2.6 % (0-7); HEMATOCRIT 38.6 % (42.0-54.0); IMMATURE GRANULOCYTES 0.1 % (0-5); MCH 29.3 pg (26.0-34.0); MCHC 33.7 g/dL (31.0-37.0); MCV 86.9 fL (80.0-100.0); MEAN PLATELET VOLUME 10.1 fL (7.4-10.4); MONOCYTES 8.9 % (2-11); PLATELET COUNT 210 10x3/uL (130-400); RBC 4.44 10x6/uL (4.20-6.10); RDW 14.4 % (11.5-14.5); WBC 7.7 10x3/uL (4.8-10.8)
[2018-11-10 20:38] LABS: APPEARANCE CLEAR (CLEAR); BILIRUBIN NEGATIVE (NEGATIVE); COLOR YELLOW (YELLOW); GLUCOSE NEGATIVE (NEGATIVE); KETONE NEGATIVE (NEGATIVE); NITRITE NEGATIVE (NEGATIVE); PROTEIN TRACE mg/dL (NEGATIVE); RED CELLS - URINE RARE /hpf (0-5); UDS - AMPHET NEGATIVE QUAL (NEGATIVE); UDS - BARB NEGATIVE QUAL (NEGATIVE); UDS - BENZO NEGATIVE QUAL (NEGATIVE); UDS - COCAINE NEGATIVE QUAL (NEGATIVE); UDS - OPIATE NEGATIVE QUAL (NEGATIVE); UDS - PCP NEGATIVE QUAL (NEGATIVE); UDS - THC NEGATIVE QUAL (NEGATIVE); UROBILINOGEN NORMAL (NORMAL); WHITE CELLS - URINE 0-5 /hpf (0-5)
[2018-11-10 20:47] LABS: ALBUMIN 3.6 g/dL (3.4-5.0); ANION GAP 12.2 mmol/L (8-16); BILIRUBIN - TOTAL 0.2 mg/dL (0.2-1.3); CALCIUM 8.4 mg/dL (8.5-10.1); CARBON DIOXIDE 27.5 mmol/L (21.0-32.0); CREATININE - SERUM 1.2 mg/dL (0.6-1.3); POTASSIUM - SERUM 3.7 mmol/L (3.5-5.1)
--- NOTE | 2018-11-10 20:47 | NUR ---
DR SCOTT NOTIFIED AND 1:1 SITTER OBSERVATION ORDERED,SITTER AT BEDSIDE, NOTIFIED CHARGE NURSE AND ATTENDING IN REGARDS TO ASSESSMENT FINDINGS. RESOURCES GIVEN TO PT AND SAFETY PLAN INITIATED.
[2018-11-10 20:48] LABS: LITHIUM 0.51 mmol/L (0.60-1.20); SALICYLATES 3.1 mg/dL (2.8-20.0)
[2018-11-11 06:51] VITALS: BP 100/58
== END 2018-11-11 06:51 ==
LOC: D.ER 20:02
PROVIDERS: Family Medicine
DX: F32.9 Major depressive disorder, single episode, unspecified (principal); R45.851 Suicidal ideations; F91.9 Conduct disorder, unspecified

== ENCOUNTER 2018-11-19 13:05 | Emergency (ER) | payer MEDICAID ==
[~2018-11-19] VITALS: Ht 180.3 cm; Wt 95.0 kg
[2018-11-19 13:22] VITALS: Ht 180.3 cm; Wt 95.0 kg
[2018-11-19] MEDS ORDERED: CELEXA40 MG PO (13:33)
[2018-11-19] MEDS ORDERED: BUPRENORPHIN-N1 EACH SL (13:33)
[2018-11-19 13:52] LABS: BASOPHILS 0.2 % (0-2); EOSINOPHILS 1.5 % (0-7); HEMATOCRIT 37.4 % (42.0-54.0); HEMOGLOBIN 12.7 g/dL (13.5-17.5); IMMATURE GRANULOCYTES 0.1 % (0-5); LYMPHOCYTES 24.2 % (15-50); MCH 29.6 pg (26.0-34.0); MCV 87.2 fL (80.0-100.0); MEAN PLATELET VOLUME 10.4 fL (7.4-10.4); MONOCYTES 8.9 % (2-11); NEUTROPHILS 65.1 % (40-80); PLATELET COUNT 221 10x3/uL (130-400); RBC 4.29 10x6/uL (4.20-6.10); RDW 14.3 % (11.5-14.5); WBC 8.7 10x3/uL (4.8-10.8)
--- NOTE | 2018-11-19 13:59 | NUR ---
ER NURSE PRESENT UPON ARRIVAL FOR SUICIDE ASSESSMENT. DR. SCOTT NOTIFIED AND 1:1 SITTER OBSERVATION ORDERED. SITTER AT BEDSIDE. NOTIFIED CHARGE NURSE AND ATTENDING IN REGARDS TO ASSESSMENT FINDINGS. RESOURCES GIVEN TO PT AND SAFETY PLAN INITIATED.
[2018-11-19 14:05] LABS: ALKALINE PHOSPHATASE 93 U/L (46-116); ALT (SGPT) 48 U/L (10-68); BILIRUBIN - TOTAL 0.38 mg/dL (0.2-1.3); CALC OSMOLALITY 271 mosm/kg (275-300); CALCIUM 8.5 mg/dL (8.5-10.1); CARBON DIOXIDE 26.5 mmol/L (21.0-32.0); CHLORIDE - SERUM 100 mmol/L (98-107); CREATININE - SERUM 1.1 mg/dL (0.6-1.3); GLUCOSE 100 mg/dL (74-106); MAGNESIUM - SERUM 2.5 mg/dL (1.8-2.4); PROTEIN - SERUM 7.4 g/dL (6.4-8.2); SODIUM 135 mmol/L (136-145); UREA NITROGEN 17 mg/dL (7-18); eGFR NON AFRICAN AMERICAN 82 mL/min (90-120)
[2018-11-19 16:21] LABS: APPEARANCE CLEAR (CLEAR); BILIRUBIN NEGATIVE (NEGATIVE); COLOR YELLOW (YELLOW); GLUCOSE NEGATIVE (NEGATIVE); KETONE NEGATIVE (NEGATIVE); NITRITE NEGATIVE (NEGATIVE); PROTEIN NEGATIVE (NEGATIVE); SPECIFIC GRAVITY 1.015 (1.005-1.020); UROBILINOGEN NORMAL (NORMAL); WHITE CELLS - URINE OCC /hpf (0-5)
[2018-11-19 16:22] LABS: BACTERIA FEW /hpf (NONE SEEN)
[2018-11-19 16:33] LABS: UDS - AMPHET NEGATIVE QUAL (NEGATIVE); UDS - BARB NEGATIVE QUAL (NEGATIVE); UDS - BENZO NEGATIVE QUAL (NEGATIVE); UDS - COCAINE NEGATIVE QUAL (NEGATIVE); UDS - OPIATE NEGATIVE QUAL (NEGATIVE); UDS - PCP NEGATIVE QUAL (NEGATIVE); UDS - THC POSITIVE QUAL (NEGATIVE)
--- NOTE | 2018-11-20 07:14 | NUR ---
PATIENT RESTING QUIETLY IN BED, EYES CLOSED, EASILY AROUSES TO VERBAL STIMULI. STATES THAT HE HAS A PLAN TO HANG SELF AND HAS BEEN ACTIVELY THINKING OF SUCH PLAN. 1:[address], PATIENT CASE REVIEWED WITH DR SCOTT.
[2018-11-20 10:17] VITALS: BP 106/64
== END 2018-11-20 10:18 ==
LOC: D.ER 13:05
PROVIDERS: Family Medicine
DX: R45.851 Suicidal ideations (principal)

== ENCOUNTER 2018-12-30 18:31 | Emergency (ER) | payer MEDICAID ==
[~2018-12-30] VITALS: Ht 180.3 cm; Wt 97.7 kg
[~2018-12-30 18:31] MED LIST changes: +BUPRENORPHIN-N1 EACH SL; +CELEXA40 MG PO
[2018-12-30 18:37] VITALS: Ht 180.3 cm; Wt 97.7 kg
[2018-12-30 19:04] LABS: BASOPHILS 0.3 % (0-2); EOSINOPHILS 1.6 % (0-7); HEMATOCRIT 38.5 % (42.0-54.0); HEMOGLOBIN 13.1 g/dL (13.5-17.5); IMMATURE GRANULOCYTES 0.1 % (0-5); LYMPHOCYTES 27.4 % (15-50); MCH 28.4 pg (26.0-34.0); MCV 83.3 fL (80.0-100.0); MEAN PLATELET VOLUME 10.5 fL (7.4-10.4); MONOCYTES 9.5 % (2-11); NEUTROPHILS 61.1 % (40-80); RBC 4.62 10x6/uL (4.20-6.10); RDW 13.8 % (11.5-14.5); WBC 7.3 10x3/uL (4.8-10.8)
[2018-12-30 19:05] LABS: PLATELET COUNT 170 10x3/uL (130-400)
[2018-12-30 19:18] LABS: ALBUMIN 3.8 g/dL (3.4-5.0); ALKALINE PHOSPHATASE 85 U/L (46-116); ALT (SGPT) 29 U/L (10-68); BILIRUBIN - TOTAL 0.31 mg/dL (0.2-1.3); CALC OSMOLALITY 274 mosm/kg (275-300); CALCIUM 8.8 mg/dL (8.5-10.1); CARBON DIOXIDE 28.5 mmol/L (21.0-32.0); CHLORIDE - SERUM 103 mmol/L (98-107); CREATININE - SERUM 1.1 mg/dL (0.6-1.3); GLUCOSE 103 mg/dL (74-106); POTASSIUM - SERUM 3.8 mmol/L (3.5-5.1); PROTEIN - SERUM 7.3 g/dL (6.4-8.2); SODIUM 138 mmol/L (136-145); UREA NITROGEN 10 mg/dL (7-18); eGFR NON AFRICAN AMERICAN 82 mL/min (90-120)
[2018-12-30 19:25] LABS: AMYLASE - SERUM 57 U/L (25-115); LIPASE 137 U/L (73-393)
[2018-12-30 19:28] LABS: MAGNESIUM - SERUM 1.9 mg/dL (1.8-2.4)
[2018-12-30 19:53] LABS: APPEARANCE CLEAR (CLEAR); COLOR STRAW (YELLOW)
[2018-12-30 19:54] LABS: BILIRUBIN NEGATIVE (NEGATIVE); GLUCOSE NEGATIVE (NEGATIVE); KETONE NEGATIVE (NEGATIVE); NITRITE NEGATIVE (NEGATIVE); PROTEIN NEGATIVE (NEGATIVE); UROBILINOGEN NORMAL (NORMAL)
[2018-12-30 19:57] LABS: BACTERIA FEW /hpf (NONE SEEN); EPITHELIAL CELLS 0-5 /hpf (0-5); RED CELLS - URINE OCC /hpf (0-5); WHITE CELLS - URINE 0-5 /hpf (0-5)
[2018-12-30 19:58] LABS: UDS - AMPHET NEGATIVE QUAL (NEGATIVE); UDS - BARB NEGATIVE QUAL (NEGATIVE); UDS - BENZO NEGATIVE QUAL (NEGATIVE); UDS - COCAINE NEGATIVE QUAL (NEGATIVE); UDS - OPIATE NEGATIVE QUAL (NEGATIVE); UDS - PCP NEGATIVE QUAL (NEGATIVE); UDS - THC POSITIVE QUAL (NEGATIVE)
[2018-12-30 20:19] VITALS: BP 131/82
== END 2018-12-30 20:19 | disposition home or self-care (01) ==
LOC: D.ER 18:31
PROVIDERS: Family Medicine
DX: I10 Essential (primary) hypertension (principal); F31.9 Bipolar disorder, unspecified

== ENCOUNTER 2019-01-19 12:44 | Emergency (ER) | payer MEDICAID ==
[~2019-01-19] VITALS: Ht 180.3 cm; Wt 90.9 kg
[2019-01-19 12:55] VITALS: Ht 180.3 cm; Wt 90.9 kg
[2019-01-19 13:20] LABS: UDS - AMPHET NEGATIVE QUAL (NEGATIVE); UDS - BARB NEGATIVE QUAL (NEGATIVE); UDS - BENZO POSITIVE QUAL (NEGATIVE); UDS - COCAINE NEGATIVE QUAL (NEGATIVE); UDS - OPIATE NEGATIVE QUAL (NEGATIVE); UDS - PCP NEGATIVE QUAL (NEGATIVE); UDS - THC POSITIVE QUAL (NEGATIVE)
--- NOTE | 2019-01-19 13:24 | NUR ---
According to the suicidal assessment he scores moderate and he will require a 1:1 observation.
[2019-01-19 13:42] LABS: APPEARANCE HAZY (CLEAR); BILIRUBIN NEGATIVE (NEGATIVE); COLOR YELLOW (YELLOW); GLUCOSE NEGATIVE (NEGATIVE); KETONE NEGATIVE (NEGATIVE); NITRITE NEGATIVE (NEGATIVE); PROTEIN NEGATIVE (NEGATIVE); UROBILINOGEN NORMAL (NORMAL)
[2019-01-19 13:45] LABS: BACTERIA FEW /hpf (NONE SEEN); EPITHELIAL CELLS 0-5 /hpf (0-5); HYALINE CAST OCC /lpf (NONE SEEN); MUCUS >1+ /lpf (NONE SEEN); RED CELLS - URINE NONE SEEN /hpf (0-5); WHITE CELLS - URINE 0-5 /hpf (0-5)
[2019-01-19 13:50] LABS: BASOPHILS 0.2 % (0-2); EOSINOPHILS 2.1 % (0-7); HEMATOCRIT 43.7 % (42.0-54.0); HEMOGLOBIN 14.9 g/dL (13.5-17.5); IMMATURE GRANULOCYTES 0.2 % (0-5); LYMPHOCYTES 25.7 % (15-50); MCH 28.2 pg (26.0-34.0); MCHC 34.1 g/dL (31.0-37.0); MCV 82.6 fL (80.0-100.0); MEAN PLATELET VOLUME 11.1 fL (7.4-10.4); MONOCYTES 10.2 % (2-11); NEUTROPHILS 61.6 % (40-80); PLATELET COUNT 184 10x3/uL (130-400); RBC 5.29 10x6/uL (4.20-6.10); RDW 13.9 % (11.5-14.5); WBC 6.3 10x3/uL (4.8-10.8)
[2019-01-19 14:05] LABS: ANION GAP 14.6 mmol/L (8-16); BILIRUBIN - TOTAL 0.51 mg/dL (0.2-1.3); CALCIUM 9.4 mg/dL (8.5-10.1); CARBON DIOXIDE 26.1 mmol/L (21.0-32.0); CREATININE - SERUM 1.2 mg/dL (0.6-1.3); MAGNESIUM - SERUM 1.9 mg/dL (1.8-2.4); POTASSIUM - SERUM 3.7 mmol/L (3.5-5.1); PROTEIN - SERUM 7.9 g/dL (6.4-8.2)
[2019-01-19 16:51] VITALS: BP 129/72
== END 2019-01-19 18:12 ==
LOC: D.ER 12:44
PROVIDERS: Family Medicine
DX: R45.851 Suicidal ideations (principal); F32.9 Major depressive disorder, single episode, unspecified

== ENCOUNTER 2019-02-09 22:20 | Emergency (ER) | payer MEDICAID ==
[~2019-02-09] VITALS: Ht 180.3 cm; Wt 93.2 kg
[2019-02-09 22:30] VITALS: Ht 180.3 cm; Wt 93.2 kg
[2019-02-09] MEDS ORDERED: COZAAR25 MG PO (22:32)
[2019-02-09] MEDS ORDERED: CLEOCIN HCL300 MG PO (22:33)
[2019-02-09] MEDS ORDERED: SEROQUEL400 MG PO (22:34)
[2019-02-09] MEDS ORDERED: LITHIUM CARBON300 MG PO (22:34)
[2019-02-09] MEDS ORDERED: KLONOPIN1 MG PO (22:58)
[2019-02-09 23:04] VITALS: BP 138/83
== END 2019-02-09 23:05 | disposition home or self-care (01) ==
LOC: D.ER 22:20
DX: F32.9 Major depressive disorder, single episode, unspecified (principal); F41.9 Anxiety disorder, unspecified

== ENCOUNTER 2019-03-18 17:00 | Emergency (ER) | payer MEDICAID ==
[~2019-03-18] VITALS: Ht 180.3 cm; Wt 97.7 kg
[~2019-03-18 17:00] MED LIST changes: +CLEOCIN HCL300 MG PO; +COZAAR25 MG PO
[2019-03-18 17:08] VITALS: Ht 180.3 cm; Wt 97.7 kg
--- NOTE | 2019-03-18 17:24 | NUR ---
DR. SCOTT NOTIFIED AND SITTER ORDERED. SITTER AT BEDSIDE. NOTIFIED CHARGE NURSE AND ATTENDING IN REGARDS TO ASSESSMENT FINDINGS. RESOURCES GIVEN TO PT AND SAFETY PLAN INITIATED.
[2019-03-18 17:38] LABS: BASOPHILS 0.8 % (0-2); EOSINOPHILS 2.1 % (0-7); HEMATOCRIT 44.1 % (42.0-54.0); HEMOGLOBIN 14.8 g/dL (13.5-17.5); IMMATURE GRANULOCYTES 0.6 % (0-5); LYMPHOCYTES 36.2 % (15-50); MCH 28.4 pg (26.0-34.0); MCHC 33.6 g/dL (31.0-37.0); MCV 84.5 fL (80.0-100.0); MEAN PLATELET VOLUME 9.9 fL (7.4-10.4); MONOCYTES 10.8 % (2-11); NEUTROPHILS 49.5 % (40-80); PLATELET COUNT 149 10x3/uL (130-400); RBC 5.22 10x6/uL (4.20-6.10); RDW 15.1 % (11.5-14.5); WBC 4.8 10x3/uL (4.8-10.8)
[2019-03-18 17:54] LABS: ALBUMIN 3.9 g/dL (3.4-5.0); ALKALINE PHOSPHATASE 125 U/L (46-116); ALT (SGPT) 69 U/L (10-68); BILIRUBIN - TOTAL 0.35 mg/dL (0.2-1.3); CALC OSMOLALITY 279 mosm/kg (275-300); CALCIUM 8.7 mg/dL (8.5-10.1); CARBON DIOXIDE 25.1 mmol/L (21.0-32.0); CHLORIDE - SERUM 104 mmol/L (98-107); GLUCOSE 125 mg/dL (74-106); PROTEIN - SERUM 7.9 g/dL (6.4-8.2); SODIUM 140 mmol/L (136-145); UREA NITROGEN 13 mg/dL (7-18); eGFR NON AFRICAN AMERICAN > 90 mL/min (90-120)
[2019-03-18 17:55] LABS: MAGNESIUM - SERUM 2.1 mg/dL (1.8-2.4)
[2019-03-18 18:17] LABS: APPEARANCE CLEAR (CLEAR); BILIRUBIN NEGATIVE (NEGATIVE); COLOR YELLOW (YELLOW); GLUCOSE NEGATIVE (NEGATIVE); KETONE NEGATIVE (NEGATIVE); NITRITE NEGATIVE (NEGATIVE); PROTEIN NEGATIVE (NEGATIVE); SPECIFIC GRAVITY 1.015 (1.005-1.020); UROBILINOGEN NORMAL (NORMAL)
[2019-03-18 18:22] LABS: UDS - AMPHET NEGATIVE QUAL (NEGATIVE); UDS - BARB NEGATIVE QUAL (NEGATIVE); UDS - BENZO NEGATIVE QUAL (NEGATIVE); UDS - COCAINE NEGATIVE QUAL (NEGATIVE); UDS - OPIATE NEGATIVE QUAL (NEGATIVE); UDS - PCP NEGATIVE QUAL (NEGATIVE); UDS - THC POSITIVE QUAL (NEGATIVE)
[2019-03-18] MEDS ORDERED: BUPRENORPHINE HC8 MG SL (20:50)
[2019-03-18 21:38] VITALS: BP 117/86
== END 2019-03-18 21:35 ==
LOC: D.ER 17:00
PROVIDERS: Emergency Medicine
DX: R45.851 Suicidal ideations (principal); F31.9 Bipolar disorder, unspecified; F17.200 Nicotine dependence, unspecified, uncomplicated; I10 Essential (primary) hypertension

== ENCOUNTER 2019-03-28 05:30 | Emergency (ER) | payer MEDICAID ==
[~2019-03-28] VITALS: Ht 180.3 cm; Wt 86.4 kg
[~2019-03-28 05:30] MED LIST changes: +BUPRENORPHINE HC8 MG SL
[2019-03-28 05:32] VITALS: Ht 180.3 cm; Wt 86.4 kg
[2019-03-28 06:03] LABS: BASOPHILS 0.4 % (0-2); EOSINOPHILS 1.6 % (0-7); HEMATOCRIT 44.4 % (42.0-54.0); HEMOGLOBIN 15.2 g/dL (13.5-17.5); IMMATURE GRANULOCYTES 0.1 % (0-5); LYMPHOCYTES 39.6 % (15-50); MCH 28.6 pg (26.0-34.0); MCHC 34.2 g/dL (31.0-37.0); MCV 83.5 fL (80.0-100.0); MEAN PLATELET VOLUME 9.6 fL (7.4-10.4); MONOCYTES 9.3 % (2-11); RBC 5.32 10x6/uL (4.20-6.10); WBC 8.1 10x3/uL (4.8-10.8)
[2019-03-28 06:27] LABS: CALC OSMOLALITY 274 mosm/kg (275-300); CALCIUM 9.1 mg/dL (8.5-10.1); CARBON DIOXIDE 23.9 mmol/L (21.0-32.0); CHLORIDE - SERUM 100 mmol/L (98-107); GLUCOSE 104 mg/dL (74-106); POTASSIUM - SERUM 3.6 mmol/L (3.5-5.1); SODIUM 137 mmol/L (136-145); UREA NITROGEN 14 mg/dL (7-18); eGFR NON AFRICAN AMERICAN > 90 mL/min (90-120)
[2019-03-28 06:33] LABS: ALBUMIN 4.2 g/dL (3.4-5.0); ALKALINE PHOSPHATASE 124 U/L (46-116); ALT (SGPT) 47 U/L (10-68); BILIRUBIN - TOTAL 0.59 mg/dL (0.2-1.3); MAGNESIUM - SERUM 1.9 mg/dL (1.8-2.4)
[2019-03-28 06:39] LABS: PLATELET COUNT 236 10x3/uL (130-400)
[2019-03-28 06:47] LABS: APPEARANCE HAZY (CLEAR); BACTERIA FEW /hpf (NEGATIVE); BILIRUBIN NEGATIVE (NEGATIVE); COLOR YELLOW (YELLOW); EPITHELIAL CELLS 0-5 /hpf (0-5); GLUCOSE NEGATIVE (NEGATIVE); KETONE LARGE mg/dL (NEGATIVE); MUCUS <1+ /lpf (NONE SEEN); NITRITE NEGATIVE (NEGATIVE); PROTEIN NEGATIVE (NEGATIVE); SPECIFIC GRAVITY 1.015 (1.005-1.020); UDS - AMPHET NEGATIVE QUAL (NEGATIVE); UDS - BARB NEGATIVE QUAL (NEGATIVE); UDS - BENZO NEGATIVE QUAL (NEGATIVE); UDS - COCAINE NEGATIVE QUAL (NEGATIVE); UDS - OPIATE NEGATIVE QUAL (NEGATIVE); UDS - PCP NEGATIVE QUAL (NEGATIVE); UDS - THC POSITIVE QUAL (NEGATIVE); UROBILINOGEN NORMAL (NORMAL); WHITE CELLS - URINE 0-5 /hpf (NEGATIVE)
[2019-03-28 07:44] VITALS: BP 141/87
--- NOTE | 2019-03-28 07:44 | NUR ---
DR. SCOTT NOTIFIED AND SITTER ORDERED. SITTER IN LINE OF SIGHT. NOTIFIED CHARGE NURSE AND ATTENDING IN REGARDS TO ASSESSMENT FINDINGS. RESOURCES GIVEN TO PT AND SAFETY PLAN INITIATED.
== END 2019-03-28 10:34 ==
LOC: D.ER 05:30
PROVIDERS: Family Medicine
DX: R45.851 Suicidal ideations (principal)

== ENCOUNTER 2019-04-22 22:20 | Emergency (ER) | payer MEDICAID ==
[~2019-04-22] VITALS: Ht 180.3 cm; Wt 88.6 kg
[2019-04-22 22:32] VITALS: Ht 180.3 cm; Wt 88.6 kg
[2019-04-22] MEDS ORDERED: SEROQUEL400 MG PO (22:46)
[2019-04-22] MEDS ORDERED: TRILEPTAL (22:46)
[2019-04-22 23:00] LABS: BASOPHILS 0.1 % (0-2); EOSINOPHILS 0.8 % (0-7); HEMATOCRIT 47.5 % (42.0-54.0); HEMOGLOBIN 16.3 g/dL (13.5-17.5); IMMATURE GRANULOCYTES 0.2 % (0-5); MCH 28.8 pg (26.0-34.0); MCHC 34.3 g/dL (31.0-37.0); MCV 83.9 fL (80.0-100.0); MEAN PLATELET VOLUME 10.2 fL (7.4-10.4); MONOCYTES 7.8 % (2-11); NEUTROPHILS 69.1 % (40-80); PLATELET COUNT 265 10x3/uL (130-400); RBC 5.66 10x6/uL (4.20-6.10); RDW 15.4 % (11.5-14.5); WBC 9.5 10x3/uL (4.8-10.8)
[2019-04-22 23:08] LABS: APPEARANCE CLEAR (CLEAR); BILIRUBIN NEGATIVE (NEGATIVE); COLOR YELLOW (YELLOW); GLUCOSE NEGATIVE (NEGATIVE); KETONE NEGATIVE (NEGATIVE); NITRITE NEGATIVE (NEGATIVE); PROTEIN TRACE mg/dL (NEGATIVE); UROBILINOGEN NORMAL (NORMAL)
[2019-04-22 23:13] LABS: CALC OSMOLALITY 270 mosm/kg (275-300); CALCIUM 9.8 mg/dL (8.5-10.1); CHLORIDE - SERUM 98 mmol/L (98-107); CREATININE - SERUM 1.1 mg/dL (0.6-1.3); GLUCOSE 148 mg/dL (74-106); POTASSIUM - SERUM 3.9 mmol/L (3.5-5.1); SODIUM 135 mmol/L (136-145); UREA NITROGEN 8 mg/dL (7-18); eGFR NON AFRICAN AMERICAN 82 mL/min (90-120)
[2019-04-22 23:17] LABS: ALBUMIN 4.4 g/dL (3.4-5.0); ALKALINE PHOSPHATASE 119 U/L (46-116); ALT (SGPT) 57 U/L (10-68); BILIRUBIN - TOTAL 0.51 mg/dL (0.2-1.3); PROTEIN - SERUM 9.3 g/dL (6.4-8.2)
[2019-04-22 23:26] LABS: UDS - AMPHET NEGATIVE QUAL (NEGATIVE); UDS - BARB NEGATIVE QUAL (NEGATIVE); UDS - BENZO NEGATIVE QUAL (NEGATIVE); UDS - COCAINE NEGATIVE QUAL (NEGATIVE); UDS - OPIATE NEGATIVE QUAL (NEGATIVE); UDS - PCP NEGATIVE QUAL (NEGATIVE); UDS - THC POSITIVE QUAL (NEGATIVE)
--- NOTE | 2019-04-23 00:23 | NUR ---
DR. SCOTT NOTIFIED AND SITTER ORDERED. SITTER AT BEDSIDE. NOTIFIED CHARGE NURSE AND ATTENDING IN REGARDS TO ASSESSMENT FINDINGS. RESOURCES GIVEN TO PT AND SAFETY PLAN INITIATED.
[2019-04-23 08:53] VITALS: BP 123/81
== END 2019-04-23 08:53 ==
LOC: D.ER 22:20
PROVIDERS: Family Medicine
DX: R45.851 Suicidal ideations (principal); F32.9 Major depressive disorder, single episode, unspecified

== ENCOUNTER 2019-05-14 22:46 | Emergency (ER) | payer MEDICAID ==
[~2019-05-14] VITALS: Ht 180.3 cm; Wt 135.0 kg
[~2019-05-14 22:46] MED LIST changes: +TRILEPTAL
[2019-05-14 22:51] VITALS: Ht 180.3 cm; Wt 135.0 kg
[2019-05-14 23:07] LABS: BASOPHILS 0.3 % (0-2); EOSINOPHILS 1.6 % (0-7); HEMATOCRIT 41.9 % (42.0-54.0); HEMOGLOBIN 13.9 g/dL (13.5-17.5); IMMATURE GRANULOCYTES 0.1 % (0-5); LYMPHOCYTES 47.3 % (15-50); MCH 28.7 pg (26.0-34.0); MCHC 33.2 g/dL (31.0-37.0); MCV 86.4 fL (80.0-100.0); MEAN PLATELET VOLUME 10.1 fL (7.4-10.4); MONOCYTES 8.8 % (2-11); NEUTROPHILS 41.9 % (40-80); PLATELET COUNT 190 10x3/uL (130-400); RBC 4.85 10x6/uL (4.20-6.10); WBC 6.8 10x3/uL (4.8-10.8)
[2019-05-14 23:17] LABS: SALICYLATES 2.9 mg/dL (2.8-20.0)
[2019-05-14 23:18] LABS: CALC OSMOLALITY 277 mosm/kg (275-300); CALCIUM 8.6 mg/dL (8.5-10.1); CARBON DIOXIDE 30.1 mmol/L (21.0-32.0); CHLORIDE - SERUM 102 mmol/L (98-107); CREATININE - SERUM 1.1 mg/dL (0.6-1.3); GLUCOSE 113 mg/dL (74-106); POTASSIUM - SERUM 4.2 mmol/L (3.5-5.1); SODIUM 138 mmol/L (136-145); UREA NITROGEN 15 mg/dL (7-18); eGFR NON AFRICAN AMERICAN 81 mL/min (90-120)
[2019-05-14 23:24] LABS: ALBUMIN 3.7 g/dL (3.4-5.0); ALKALINE PHOSPHATASE 124 U/L (46-116); ALT (SGPT) 96 U/L (10-68); BILIRUBIN - TOTAL 0.31 mg/dL (0.2-1.3); PROTEIN - SERUM 7.5 g/dL (6.4-8.2)
[2019-05-14 23:27] LABS: LITHIUM < 0.20 mmol/L (0.60-1.20)
--- NOTE | 2019-05-14 23:34 | NUR ---
DR SCOTT NOTIFIED AND SITTER ORDERED. SITTER AT BEDSIDE, NOTIFIED CHARGE NURSE AND ATTENDING IN REGARDS TO ASSESSMENT FINDINGS, RESOURCES GIVEN TO PT AND SAFETY PLAN INITIATED.
[2019-05-15] LABS: UDS - AMPHET NEGATIVE QUAL (NEGATIVE); UDS - BARB NEGATIVE QUAL (NEGATIVE); UDS - BENZO NEGATIVE QUAL (NEGATIVE); UDS - COCAINE NEGATIVE QUAL (NEGATIVE); UDS - OPIATE NEGATIVE QUAL (NEGATIVE); UDS - PCP NEGATIVE QUAL (NEGATIVE); UDS - THC POSITIVE QUAL (NEGATIVE)
[2019-05-15 00:03] LABS: APPEARANCE CLEAR (CLEAR); BILIRUBIN NEGATIVE (NEGATIVE); COLOR YELLOW (YELLOW); GLUCOSE NEGATIVE (NEGATIVE); KETONE NEGATIVE (NEGATIVE); NITRITE NEGATIVE (NEGATIVE); PROTEIN NEGATIVE (NEGATIVE); SPECIFIC GRAVITY 1.015 (1.005-1.020); UROBILINOGEN NORMAL (NORMAL)
[2019-05-15 16:53] VITALS: BP 108/62
[2019-05-16] MEDS ORDERED: METOPROLOL TART50 MG PO (18:46)
[2019-05-16] MEDS ORDERED: KLONOPIN1 MG PO (18:46)
== END 2019-05-15 18:30 ==
LOC: D.ER 22:46
PROVIDERS: Family Medicine
DX: R45.851 Suicidal ideations (principal); F32.9 Major depressive disorder, single episode, unspecified

== ENCOUNTER 2019-05-16 17:32 | Emergency (ER) | payer MEDICAID ==
[~2019-05-16] VITALS: Ht 180.3 cm; Wt 93.2 kg
[2019-05-16 17:35] VITALS: Ht 180.3 cm; Wt 93.2 kg
[2019-05-16] MEDS ORDERED: KLONOPIN1 MG PO (18:46)
[2019-05-16] MEDS ORDERED: METOPROLOL TART50 MG PO (18:46)
[2019-05-16 21:23] VITALS: BP 145/102
== END 2019-05-16 19:22 | disposition home or self-care (01) ==
LOC: D.ER 17:32
DX: Z76.0 Encounter for issue of repeat prescription (principal); I10 Essential (primary) hypertension; Z72.0 Tobacco use

== ENCOUNTER 2019-05-17 12:41 | Emergency (ER) | payer MEDICAID ==
[~2019-05-17] VITALS: Ht 180.3 cm; Wt 93.2 kg
[2019-05-17 12:51] VITALS: Ht 180.3 cm; Wt 93.2 kg
[2019-05-17 13:15] VITALS: BP 113/78
[2019-05-17 13:53] LABS: CALC OSMOLALITY 275 mosm/kg (275-300); CALCIUM 9.7 mg/dL (8.5-10.1); CARBON DIOXIDE 27.7 mmol/L (21.0-32.0); CHLORIDE - SERUM 100 mmol/L (98-107); GLUCOSE 99 mg/dL (74-106); POTASSIUM - SERUM 4.6 mmol/L (3.5-5.1); SODIUM 137 mmol/L (136-145); UREA NITROGEN 17 mg/dL (7-18); eGFR NON AFRICAN AMERICAN > 90 mL/min (90-120)
[2019-05-17 13:54] LABS: BASOPHILS 0.3 % (0-2); EOSINOPHILS 1.7 % (0-7); HEMATOCRIT 42.5 % (42.0-54.0); HEMOGLOBIN 14.4 g/dL (13.5-17.5); IMMATURE GRANULOCYTES 0.2 % (0-5); LYMPHOCYTES 36.7 % (15-50); MCH 28.9 pg (26.0-34.0); MCHC 33.9 g/dL (31.0-37.0); MCV 85.3 fL (80.0-100.0); MEAN PLATELET VOLUME 10.4 fL (7.4-10.4); NEUTROPHILS 51.1 % (40-80); PLATELET COUNT 173 10x3/uL (130-400); RBC 4.98 10x6/uL (4.20-6.10); RDW 14.9 % (11.5-14.5); WBC 5.7 10x3/uL (4.8-10.8)
[2019-05-17 14:08] LABS: ALBUMIN 4.2 g/dL (3.4-5.0); ALKALINE PHOSPHATASE 125 U/L (46-116); ALT (SGPT) 64 U/L (10-68); BILIRUBIN - TOTAL 0.28 mg/dL (0.2-1.3); CREATINE KINASE 147 UL (21-232); MAGNESIUM - SERUM 2.1 mg/dL (1.8-2.4); PROTEIN - SERUM 7.5 g/dL (6.4-8.2); TROPONIN-I < 0.017 ng/mL (0.000-0.060)
[2019-05-17 14:17] LABS: APTT 28.1 SECONDS (22.8-39.4); INR 0.96 (0.85-1.17); PROTIME 12.3 SECONDS (11.6-15.0)
== END 2019-05-17 14:51 | disposition home or self-care (01) ==
LOC: D.ER 12:41
PROVIDERS: Family Medicine
DX: R51 Headache (principal); R07.9 Chest pain, unspecified; I10 Essential (primary) hypertension; Z72.0 Tobacco use

== ENCOUNTER 2019-06-05 18:44 | Emergency (ER) | payer OTHER ==
[~2019-06-05] VITALS: Ht 180.3 cm; Wt 86.4 kg
[2019-06-05 18:57] VITALS: Ht 180.3 cm; Wt 86.4 kg
[2019-06-05 19:57] LABS: BASOPHILS 0.3 % (0-2); EOSINOPHILS 1.7 % (0-7); HEMOGLOBIN 15.1 g/dL (13.5-17.5); IMMATURE GRANULOCYTES 0.1 % (0-5); LYMPHOCYTES 42.5 % (15-50); MCH 29.2 pg (26.0-34.0); MCHC 34.3 g/dL (31.0-37.0); MCV 85.1 fL (80.0-100.0); MEAN PLATELET VOLUME 10.2 fL (7.4-10.4); MONOCYTES 7.6 % (2-11); NEUTROPHILS 47.8 % (40-80); PLATELET COUNT 195 10x3/uL (130-400); RBC 5.17 10x6/uL (4.20-6.10); RDW 14.6 % (11.5-14.5)
[2019-06-05 20:09] LABS: ANION GAP 12.4 mmol/L (8-16); CALCIUM 8.6 mg/dL (8.5-10.1); CARBON DIOXIDE 29.7 mmol/L (21.0-32.0); CREATININE - SERUM 1.2 mg/dL (0.6-1.3); POTASSIUM - SERUM 4.1 mmol/L (3.5-5.1)
[2019-06-05 20:17] LABS: ALBUMIN 3.8 g/dL (3.4-5.0); BILIRUBIN - TOTAL 0.21 mg/dL (0.2-1.3); PROTEIN - SERUM 6.9 g/dL (6.4-8.2)
[2019-06-05 20:24] LABS: APPEARANCE CLEAR (CLEAR); BILIRUBIN NEGATIVE (NEGATIVE); COLOR STRAW (YELLOW); GLUCOSE NEGATIVE (NEGATIVE); KETONE NEGATIVE (NEGATIVE); NITRITE NEGATIVE (NEGATIVE); PROTEIN NEGATIVE (NEGATIVE); SPECIFIC GRAVITY 1.005 (1.005-1.020); UROBILINOGEN NORMAL (NORMAL)
[2019-06-05 20:35] LABS: UDS - AMPHET NEGATIVE QUAL (NEGATIVE); UDS - BARB NEGATIVE QUAL (NEGATIVE); UDS - BENZO NEGATIVE QUAL (NEGATIVE); UDS - COCAINE NEGATIVE QUAL (NEGATIVE); UDS - OPIATE NEGATIVE QUAL (NEGATIVE); UDS - PCP NEGATIVE QUAL (NEGATIVE); UDS - THC POSITIVE QUAL (NEGATIVE)
--- NOTE | 2019-06-05 21:37 | NUR ---
DR SCOTT NOTIFIED AND SITTER ORDERED. SITTER AT BEDSIDE. NOTIFIED CHARGE NURSE AND ATTENDING IN REGARDS TO ASSESSMENT FINDINGS. RESOURCES GIVEN TO PATIENT AND SAFETY PLAN INITIATED.
[2019-06-06 00:17] VITALS: BP 100/59
== END 2019-06-06 01:28 ==
LOC: D.ER 18:44
PROVIDERS: Family Medicine
DX: R45.851 Suicidal ideations (principal); I10 Essential (primary) hypertension; Z72.0 Tobacco use

== ENCOUNTER 2019-07-26 03:22 | Emergency (ER) | payer OTHER ==
[~2019-07-26] VITALS: Ht 180.3 cm; Wt 90.9 kg
[2019-07-26 03:30] VITALS: Ht 180.3 cm; Wt 90.9 kg
[2019-07-26 03:44] LABS: BASOPHILS 0.2 % (0-2); EOSINOPHILS 1.4 % (0-7); HEMOGLOBIN 16.8 g/dL (13.5-17.5); IMMATURE GRANULOCYTES 0.1 % (0-5); LYMPHOCYTES 41.1 % (15-50); MCH 29.7 pg (26.0-34.0); MCV 84.8 fL (80.0-100.0); MEAN PLATELET VOLUME 10.6 fL (7.4-10.4); NEUTROPHILS 48.2 % (40-80); PLATELET COUNT 212 10x3/uL (130-400); RBC 5.66 10x6/uL (4.20-6.10); RDW 14.6 % (11.5-14.5); WBC 9.6 10x3/uL (4.8-10.8)
[2019-07-26 03:47] LABS: APPEARANCE CLEAR (CLEAR); BILIRUBIN NEGATIVE (NEGATIVE); COLOR YELLOW (YELLOW); GLUCOSE NEGATIVE (NEGATIVE); KETONE MODERATE mg/dL (NEGATIVE); NITRITE NEGATIVE (NEGATIVE); PROTEIN TRACE mg/dL (NEGATIVE); SPECIFIC GRAVITY 1.015 (1.005-1.020); UROBILINOGEN NORMAL (NORMAL)
[2019-07-26 03:48] LABS: UDS - AMPHET NEGATIVE QUAL (NEGATIVE); UDS - BARB NEGATIVE QUAL (NEGATIVE); UDS - BENZO NEGATIVE QUAL (NEGATIVE); UDS - COCAINE NEGATIVE QUAL (NEGATIVE); UDS - OPIATE NEGATIVE QUAL (NEGATIVE); UDS - PCP NEGATIVE QUAL (NEGATIVE); UDS - THC POSITIVE QUAL (NEGATIVE)
[2019-07-26 03:57] LABS: CALC OSMOLALITY 276 mosm/kg (275-300); CALCIUM 9.5 mg/dL (8.5-10.1); CARBON DIOXIDE 25.1 mmol/L (21.0-32.0); CHLORIDE - SERUM 101 mmol/L (98-107); CREATININE - SERUM 1.1 mg/dL (0.6-1.3); GLUCOSE 92 mg/dL (74-106); POTASSIUM - SERUM 3.9 mmol/L (3.5-5.1); SODIUM 136 mmol/L (136-145); UREA NITROGEN 26 mg/dL (7-18); eGFR NON AFRICAN AMERICAN 81 mL/min (90-120)
[2019-07-26 04:04] LABS: ALBUMIN 4.1 g/dL (3.4-5.0); ALKALINE PHOSPHATASE 109 U/L (30-120); ALT (SGPT) 41 U/L (10-68); MAGNESIUM - SERUM 2.1 mg/dL (1.8-2.4); PROTEIN - SERUM 8.2 g/dL (6.4-8.2)
--- NOTE | 2019-07-26 04:58 | NUR ---
DR SCOTT NOTIFIED AND SITTER ORDERED. SITTER AT BEDSIDE. NOTIFIED CHARGE NURSE AND ATTENDING IN REGARDS TO ASSESSMENT FINDINGS. RESOURCES GIVEN TO PT AND SAFETY PLAN INITIATED.
[2019-07-26 07:22] VITALS: BP 123/74
== END 2019-07-26 07:23 ==
LOC: D.ER 03:22
PROVIDERS: Emergency Medicine
DX: R45.851 Suicidal ideations (principal); F32.9 Major depressive disorder, single episode, unspecified; F19.10 Other psychoactive substance abuse, uncomplicated

== ENCOUNTER 2019-08-01 11:58 | Emergency (ER) | payer OTHER ==
[~2019-08-01] VITALS: Ht 180.3 cm; Wt 89.5 kg
[2019-08-01 12:10] VITALS: Ht 180.3 cm; Wt 89.5 kg
--- NOTE | 2019-08-01 12:23 | NUR ---
According to the suicide assessment, the patient rates low for suicide and he will not require 1:1 observation.
[2019-08-01] MEDS ORDERED: PROZAC20 MG PO (13:23)
[2019-08-01] MEDS ORDERED: KLONOPIN1 MG PO (13:23)
[2019-08-01] MEDS ORDERED: TRILEPTAL300 MG PO (13:23)
[2019-08-01] MEDS ORDERED: LITHIUM CARBON300 MG PO (13:23)
[2019-08-01 13:55] VITALS: BP 122/74
== END 2019-08-01 13:57 | disposition home or self-care (01) ==
LOC: D.ER 11:58
DX: F31.9 Bipolar disorder, unspecified (principal); F41.8 Other specified anxiety disorders; I10 Essential (primary) hypertension; Z72.0 Tobacco use; Z76.0 Encounter for issue of repeat prescription

== ENCOUNTER 2019-08-05 21:59 | Emergency (ER) | payer OTHER ==
[~2019-08-05] VITALS: Ht 180.3 cm; Wt 89.4 kg
[~2019-08-05 21:59] MED LIST changes: +TRILEPTAL300 MG PO
[2019-08-05 22:14] VITALS: Ht 180.3 cm; Wt 89.4 kg
[2019-08-05 22:36] LABS: BASOPHILS 0.1 % (0-2); EOSINOPHILS 1.1 % (0-7); HEMATOCRIT 40.9 % (42.0-54.0); HEMOGLOBIN 13.9 g/dL (13.5-17.5); IMMATURE GRANULOCYTES 0.1 % (0-5); LYMPHOCYTES 29.6 % (15-50); MCV 85.2 fL (80.0-100.0); MEAN PLATELET VOLUME 9.9 fL (7.4-10.4); NEUTROPHILS 58.1 % (40-80); PLATELET COUNT 163 10x3/uL (130-400); RDW 14.8 % (11.5-14.5); WBC 7.3 10x3/uL (4.8-10.8)
[2019-08-05 22:40] LABS: BILIRUBIN NEGATIVE (NEGATIVE); GLUCOSE NEGATIVE (NEGATIVE); KETONE NEGATIVE (NEGATIVE); NITRITE NEGATIVE (NEGATIVE); SPECIFIC GRAVITY 1.015 (1.005-1.020); UROBILINOGEN NORMAL (NORMAL)
[2019-08-05 22:45] LABS: APTT 30.1 SECONDS (22.8-39.4); CALC OSMOLALITY 274 mosm/kg (275-300); CALCIUM 8.7 mg/dL (8.5-10.1); CARBON DIOXIDE 31.2 mmol/L (21.0-32.0); CHLORIDE - SERUM 104 mmol/L (98-107); GLUCOSE 95 mg/dL (74-106); INR 0.98 (0.85-1.17); POTASSIUM - SERUM 4.1 mmol/L (3.5-5.1); SODIUM 138 mmol/L (136-145); UREA NITROGEN 11 mg/dL (7-18); eGFR NON AFRICAN AMERICAN > 90 mL/min (90-120)
[2019-08-05 22:45] LABS: UDS - AMPHET POSITIVE QUAL (NEGATIVE); UDS - BARB NEGATIVE QUAL (NEGATIVE); UDS - BENZO POSITIVE QUAL (NEGATIVE); UDS - COCAINE NEGATIVE QUAL (NEGATIVE); UDS - OPIATE NEGATIVE QUAL (NEGATIVE); UDS - PCP NEGATIVE QUAL (NEGATIVE); UDS - THC POSITIVE QUAL (NEGATIVE)
[2019-08-05 22:59] LABS: ALBUMIN 3.5 g/dL (3.4-5.0); ALKALINE PHOSPHATASE 108 U/L (30-120); ALT (SGPT) 103 U/L (10-68); BILIRUBIN - TOTAL 0.33 mg/dL (0.2-1.3); CKMB 0.2 U/L (0.0-3.6); CREATINE KINASE 318 UL (21-232); MAGNESIUM - SERUM 1.9 mg/dL (1.8-2.4)
[2019-08-05 23:01] LABS: TROPONIN-I < 0.017 ng/mL (0.000-0.060)
[2019-08-06 03:54] VITALS: BP 106/66
== END 2019-08-06 03:36 | disposition home or self-care (01) ==
LOC: D.ER 21:59
PROVIDERS: Family Medicine
DX: R07.89 Other chest pain (principal); I10 Essential (primary) hypertension; Z72.0 Tobacco use

== ENCOUNTER 2019-08-22 11:52 | Emergency (ER) | payer OTHER ==
[~2019-08-22] VITALS: Ht 180.3 cm; Wt 89.5 kg
[2019-08-22 12:16] VITALS: Ht 180.3 cm; Wt 89.5 kg
--- NOTE | 2019-08-22 12:41 | NUR ---
DR. SCOTT NOTIFIED AND REVIEWED PT'S BEHAVIOR AND ASSESSMENT RESULTS. PT IS A LOW RISK PER DR. SCOTT. DR. SCOTT STATED TO GIVE RESOURCES TO PT AT TIME OF DISCHARGE. NO FURTHER ORDERS AT THIS TIME. RESOURCES REVIEWED WITH PT AND HE VERBALIZED UNDERSTANDING.
[2019-08-22] MEDS ORDERED: METOPROLOL TART50 MG PO (13:08)
[2019-08-22] MEDS ORDERED: DIOVAN80 MG PO (13:08)
[2019-08-22 13:29] VITALS: BP 114/60
== END 2019-08-22 13:30 | disposition home or self-care (01) ==
LOC: D.ER 11:52
DX: I10 Essential (primary) hypertension (principal); Z91.14 Patient's other noncompliance with medication regimen

== ENCOUNTER 2019-09-26 17:03 | Emergency (ER) | payer OTHER ==
[~2019-09-26] VITALS: Ht 180.3 cm; Wt 95.5 kg
[2019-09-26 17:10] VITALS: Ht 180.3 cm; Wt 95.5 kg
[2019-09-26] MEDS ORDERED: LISINOPRIL-HCT1 EAC7 PO (17:12)
[2019-09-26] MEDS ORDERED: BACLOFEN20 M1 PO (18:19)
[2019-09-26] MEDS ORDERED: VOLTAREN75 MG PO (18:19)
[2019-09-26] MEDS ORDERED: ZESTORETIC 20-1 EACH PO (18:28)
[2019-09-26] MEDS ORDERED: METOPROLOL TART50 MG PO (18:28)
[2019-09-26 19:08] VITALS: BP 132/74
== END 2019-09-26 19:09 | disposition home or self-care (01) ==
LOC: D.ER 17:03
DX: M54.5 Low back pain (principal); V29.9XXA Motorcycle rider (driver) (passenger) injured in unspecified traffic accident, initial encounter; Y93.9 Activity, unspecified; Y92.9 Unspecified place or not applicable; I10 Essential (primary) hypertension; Z72.0 Tobacco use; M53.3 Sacrococcygeal disorders, not elsewhere classified

== ENCOUNTER 2019-10-03 03:11 | Emergency (ER) | payer OTHER ==
[~2019-10-03] VITALS: Ht 180.3 cm; Wt 95.5 kg
[~2019-10-03 03:11] MED LIST changes: +BACLOFEN20 M1 PO; +LISINOPRIL-HCT1 EAC7 PO; +VOLTAREN75 MG PO; +ZESTORETIC 20-1 EACH PO
[2019-10-03 03:17] VITALS: Ht 180.3 cm; Wt 95.5 kg
--- NOTE | 2019-10-03 04:14 | NUR ---
NOTIFIED CHARGE NURSE AND ATTENDING OF ASSESSMENT RESULTS. DR. SCOTT NOTIFIED OF BEHAVIOR AND ASSESSMENT RESULTS. PT IS A LOW RISK PER DR. SCOTT. DR. SCOTT STATES TO GIVE PT RESOURCES AT TIME OF DISCHARGE. NO FURTHER ORDERS AT THIS TIEM. RESOURCES REVIEWED WITH PT AND HE VERBALIZED UNDERSTANDING.
[2019-10-03] MEDS ORDERED: PERCOCET 5-3251 TAB PO (04:21)
[2019-10-03 04:31] VITALS: BP 135/93
== END 2019-10-03 04:30 | disposition home or self-care (01) ==
LOC: D.ER 03:11
DX: S39.82XA Other specified injuries of lower back, initial encounter (principal); I10 Essential (primary) hypertension; M54.5 Low back pain; W19.XXXA Unspecified fall, initial encounter; Y93.9 Activity, unspecified; Y92.9 Unspecified place or not applicable

== ENCOUNTER 2019-10-17 15:46 | Emergency (ER) | payer OTHER ==
[~2019-10-17] VITALS: Ht 180.3 cm; Wt 95.5 kg
[~2019-10-17 15:46] MED LIST changes: +PERCOCET 5-3251 TAB PO
[2019-10-17 15:57] VITALS: Ht 180.3 cm; Wt 95.5 kg
[2019-10-17] MEDS ORDERED: IBUPROFEN800 MG PO (16:56)
[2019-10-17] MEDS ORDERED: CYCLOBENZAPRINE10 MG PO (16:56)
[2019-10-17] MEDS ORDERED: ACETAMINOPHEN500 M1 PO (16:56)
[2019-10-17] MEDS ORDERED: TOPROL XL100 MG PO (17:07)
[2019-10-17 17:12] VITALS: BP 134/83
[2019-10-18] MEDS ORDERED: BACLOFEN10 MG PO (04:05)
[2019-10-18] MEDS ORDERED: HYDROCODON-ACE1 EAC7 PO (04:05)
[2019-10-18] MEDS ORDERED: CATAPRES0.1 MG PO (04:07)
== END 2019-10-17 17:14 | disposition home or self-care (01) ==
LOC: D.ER 15:46
DX: S39.012A Strain of muscle, fascia and tendon of lower back, initial encounter (principal); Z76.0 Encounter for issue of repeat prescription; M79.18 Myalgia, other site; I10 Essential (primary) hypertension; Z72.0 Tobacco use; V19.9XXA Pedal cyclist (driver) (passenger) injured in unspecified traffic accident, initial encounter; Y93.9 Activity, unspecified; Y92.9 Unspecified place or not applicable

== ENCOUNTER 2019-10-18 02:32 | Emergency (ER) | payer OTHER ==
[~2019-10-18] VITALS: Ht 180.3 cm; Wt 95.5 kg
[~2019-10-18 02:32] MED LIST changes: +ACETAMINOPHEN500 M1 PO; +CYCLOBENZAPRINE10 MG PO; +IBUPROFEN800 MG PO; +TOPROL XL100 MG PO
[2019-10-18 02:44] VITALS: Ht 180.3 cm; Wt 95.5 kg
[2019-10-18] MEDS ORDERED: HYDROCODON-ACE1 EAC7 PO (04:05)
[2019-10-18] MEDS ORDERED: BACLOFEN10 MG PO (04:05)
[2019-10-18] MEDS ORDERED: CATAPRES0.1 MG PO (04:07)
[2019-10-18 04:09] VITALS: BP 130/76
== END 2019-10-18 04:11 | disposition home or self-care (01) ==
LOC: D.ER 02:32
DX: S29.012A Strain of muscle and tendon of back wall of thorax, initial encounter (principal); I10 Essential (primary) hypertension; V29.9XXA Motorcycle rider (driver) (passenger) injured in unspecified traffic accident, initial encounter; Y93.9 Activity, unspecified; Y92.9 Unspecified place or not applicable

== ENCOUNTER 2019-10-26 00:58 | Emergency (ER) | payer OTHER ==
[~2019-10-26] VITALS: Ht 180.3 cm; Wt 95.5 kg
[~2019-10-26 00:58] MED LIST changes: +BACLOFEN10 MG PO
[2019-10-26 01:04] VITALS: BP 151/96; Ht 180.3 cm; Wt 95.5 kg
[2019-10-26] MEDS ORDERED: LISINOPRIL-HCT1 EAC4 PO (01:19)
== END 2019-10-26 01:38 | disposition home or self-care (01) ==
LOC: D.ER 00:58
DX: I10 Essential (primary) hypertension (principal); Z76.0 Encounter for issue of repeat prescription; Z72.0 Tobacco use

== ENCOUNTER 2019-12-07 03:45 | Emergency (ER) | payer MEDICAID ==
[~2019-12-07] VITALS: Ht 180.3 cm; Wt 90.7 kg
[~2019-12-07 03:45] MED LIST changes: +LISINOPRIL-HCT1 EAC4 PO
[2019-12-07 03:46] VITALS: Ht 180.3 cm; Wt 90.7 kg
[2019-12-07] MEDS ORDERED: LISINOPRIL-HCT1 EAC7 PO ×2 (03:51→05:35)
[2019-12-07] MEDS ORDERED: TRILEPTAL300 MG PO ×2 (03:51→05:35)
[2019-12-07] MEDS ORDERED: METOPROLOL TART50 MG PO (05:35)
[2019-12-07] MEDS ORDERED: HYDROCODON-ACE1 EAC2 PO ×3 (05:35→05:39)
[2019-12-07 06:18] VITALS: BP 132/77
== END 2019-12-07 06:21 | disposition home or self-care (01) ==
LOC: D.ER 03:45
DX: K02.9 Dental caries, unspecified (principal); I10 Essential (primary) hypertension; Z72.0 Tobacco use; K08.89 Other specified disorders of teeth and supporting structures; Z76.0 Encounter for issue of repeat prescription

== ENCOUNTER 2019-12-20 02:00 | Emergency (ER) | payer MEDICAID ==
[~2019-12-20] VITALS: Ht 180.3 cm; Wt 90.7 kg
[~2019-12-20 02:00] MED LIST changes: +HYDROCODON-ACE1 EAC2 PO
[2019-12-20 02:09] VITALS: BP 146/86; Ht 180.3 cm; Wt 90.7 kg
[2019-12-20] MEDS ORDERED: CLEOCIN HCL300 MG PO (02:25)
[2019-12-20] MEDS ORDERED: ULTRAM50 MG PO (02:41)
== END 2019-12-20 02:38 | disposition home or self-care (01) ==
LOC: D.ER 02:00
DX: K08.89 Other specified disorders of teeth and supporting structures (principal); I10 Essential (primary) hypertension; Z72.0 Tobacco use

== ENCOUNTER 2020-02-02 20:32 | Emergency (ER) | payer MEDICAID ==
[~2020-02-02] VITALS: Ht 180.3 cm; Wt 81.6 kg
[~2020-02-02 20:32] MED LIST changes: +ULTRAM50 MG PO
[2020-02-02 20:39] VITALS: Ht 180.3 cm; Wt 81.6 kg
[2020-02-02 21:24] LABS: BASOPHILS 0.3 % (0-2); EOSINOPHILS 2.4 % (0-7); HEMATOCRIT 45.9 % (42.0-54.0); HEMOGLOBIN 15.9 g/dL (13.5-17.5); IMMATURE GRANULOCYTES 0.2 % (0-5); LYMPHOCYTES 46.3 % (15-50); MCH 31.1 pg (26.0-34.0); MCHC 34.6 g/dL (31.0-37.0); MCV 89.8 fL (80.0-100.0); MEAN PLATELET VOLUME 10.5 fL (7.4-10.4); MONOCYTES 7.3 % (2-11); NEUTROPHILS 43.5 % (40-80); PLATELET COUNT 154 10x3/uL (130-400); RBC 5.11 10x6/uL (4.20-6.10); RDW 13.7 % (11.5-14.5); WBC 6.6 10x3/uL (4.8-10.8)
[2020-02-02 21:33] LABS: CALC OSMOLALITY 277 mosm/kg (275-300); CALCIUM 8.9 mg/dL (8.5-10.1); CHLORIDE - SERUM 106 mmol/L (98-107); GLUCOSE 91 mg/dL (74-106); INR 0.98 (0.85-1.17); POTASSIUM - SERUM 3.9 mmol/L (3.5-5.1); SODIUM 140 mmol/L (136-145); UREA NITROGEN 9 mg/dL (7-18); eGFR NON AFRICAN AMERICAN > 90 mL/min (90-120)
[2020-02-02 21:48] LABS: ALBUMIN 3.9 g/dL (3.4-5.0); ALKALINE PHOSPHATASE 81 U/L (30-120); ALT (SGPT) 36 U/L (10-68); BILIRUBIN - TOTAL 0.46 mg/dL (0.2-1.3); CKMB 0.8 U/L (0.0-3.6); CREATINE KINASE 115 UL (21-232); PROTEIN - SERUM 7.1 g/dL (6.4-8.2)
[2020-02-02 21:56] LABS: TROPONIN-I < 0.017 ng/mL (0.000-0.060)
[2020-02-02] MEDS ORDERED: NORCO 7.5-3251 EACH PO (22:29)
[2020-02-02] MEDS ORDERED: BACTRIM DS TAB1 EAC1 PO (22:29)
[2020-02-02 23:19] VITALS: BP 137/83
[2020-02-03] MEDS ORDERED: METOPROLOL TART50 MG PO (16:23)
== END 2020-02-02 23:19 | disposition home or self-care (01) ==
LOC: D.ER 20:32
PROVIDERS: Family Medicine
DX: R07.89 Other chest pain (principal); K04.7 Periapical abscess without sinus; K02.9 Dental caries, unspecified; I10 Essential (primary) hypertension; Z72.0 Tobacco use

== ENCOUNTER 2020-02-03 15:42 | Emergency (ER) | payer MEDICAID ==
[2020-02-02 20:39] VITALS: BMI 29.3
[~2020-02-03 15:42] MED LIST changes: +BACTRIM DS TAB1 EAC1 PO; +NORCO 7.5-3251 EACH PO
[2020-02-03] MEDS ORDERED: METOPROLOL TART50 MG PO (16:23)
== END 2020-02-03 15:47 | disposition left against medical advice (07) ==
LOC: D.ER 15:42
DX: R00.2 Palpitations (principal)

== ENCOUNTER 2020-02-03 16:04 | Emergency (ER) | payer MEDICAID ==
[~2020-02-03] VITALS: Ht 180.3 cm; Wt 90.9 kg
[2020-02-03 16:07] VITALS: BP 139/85; Ht 180.3 cm; Wt 90.9 kg
[2020-02-03] MEDS ORDERED: METOPROLOL TART50 MG PO (16:23)
== END 2020-02-03 16:30 | disposition home or self-care (01) ==
LOC: D.ER 16:04
DX: Z76.0 Encounter for issue of repeat prescription (principal); I10 Essential (primary) hypertension

== ENCOUNTER 2020-02-05 18:48 | Emergency (ER) | payer MEDICAID ==
[~2020-02-05] VITALS: Ht 180.3 cm; Wt 86.4 kg
[2020-02-05 19:05] VITALS: BP 116/63; Ht 180.3 cm; Wt 86.4 kg
[2020-02-05] MEDS ORDERED: CLEOCIN HCL300 MG PO (19:45)
== END 2020-02-05 20:28 | disposition home or self-care (01) ==
LOC: D.ER 18:48
DX: K02.9 Dental caries, unspecified (principal); I10 Essential (primary) hypertension; K08.89 Other specified disorders of teeth and supporting structures

== ENCOUNTER 2020-03-02 23:54 | Emergency (ER) | payer MEDICAID ==
[~2020-03-02] VITALS: Ht 180.3 cm; Wt 90.9 kg
[2020-03-03 00:26] VITALS: Ht 180.3 cm; Wt 90.9 kg
[2020-03-03] MEDS ORDERED: TORADOL10 MG PO (01:46)
[2020-03-03] MEDS ORDERED: OMNICEF300 MG PO (01:46)
[2020-03-03 01:51] VITALS: BP 118/89
== END 2020-03-03 01:51 | disposition home or self-care (01) ==
LOC: D.ER 23:54
DX: K04.7 Periapical abscess without sinus (principal); K08.89 Other specified disorders of teeth and supporting structures; I10 Essential (primary) hypertension; Z72.0 Tobacco use

== ENCOUNTER 2020-03-16 14:12 | Emergency (ER) | payer MEDICAID ==
[~2020-03-16] VITALS: Ht 180.3 cm; Wt 81.8 kg
[2020-03-16 15:01] VITALS: BP 144/87; Ht 180.3 cm; Wt 81.8 kg
[2020-03-16] MEDS ORDERED: LISINOPRIL-HCT1 EAC7 PO (15:54)
[2020-03-16] MEDS ORDERED: METOPROLOL TART50 MG PO (16:12)
== END 2020-03-16 16:09 | disposition home or self-care (01) ==
LOC: D.ER 14:12
DX: Z76.0 Encounter for issue of repeat prescription (principal); R10.30 Lower abdominal pain, unspecified; I10 Essential (primary) hypertension; Z72.0 Tobacco use

== ENCOUNTER 2020-09-01 07:36 | Emergency (ER) | payer MEDICAID ==
[~2020-09-01] VITALS: Ht 180.3 cm; Wt 90.9 kg
[~2020-09-01 07:36] MED LIST changes: +HYDROCHLOROTHIA25 MG PO; +ZOFRAN ODT4 MG/UDTAB PO
[2020-09-01 07:40] VITALS: Ht 180.3 cm; Wt 90.9 kg
[2020-09-01] MEDS ORDERED: PERCOCET 10-321 EAC1 PO (09:38)
[2020-09-01 09:45] VITALS: BP 128/77
== END 2020-09-01 09:47 | disposition home or self-care (01) ==
LOC: D.ER 07:36
DX: K43.9 Ventral hernia without obstruction or gangrene (principal); I10 Essential (primary) hypertension; Z72.0 Tobacco use

== ENCOUNTER 2020-09-09 03:33 | Emergency (ER) | payer MEDICAID ==
[~2020-09-09] VITALS: Ht 180.3 cm; Wt 90.9 kg
[~2020-09-09 03:33] MED LIST changes: +PERCOCET 10-321 EAC1 PO
[2020-09-09 03:40] VITALS: Ht 180.3 cm; Wt 90.9 kg
[2020-09-09] MEDS ORDERED: ZIAC 10-6.25 MG1 TAB PO (03:50)
[2020-09-09] MEDS ORDERED: LISINOPRIL10 MG PO (03:51)
[2020-09-09] MEDS ORDERED: METOPROLOL TART50 MG PO (03:51)
[2020-09-09] MEDS ORDERED: PERCOCET 5-3251 TAB PO (03:52)
[2020-09-09 04:22] LABS: BASOPHILS 0.3 % (0-2); EOSINOPHILS 1.2 % (0-7); HEMATOCRIT 40.3 % (42.0-54.0); HEMOGLOBIN 13.6 g/dL (13.5-17.5); IMMATURE GRANULOCYTES 0.1 % (0-5); LYMPHOCYTE ABS# 2.07 10x3/uL (1.32-3.57); LYMPHOCYTES 30.4 % (15-50); MCH 31.1 pg (26.0-34.0); MCHC 33.7 g/dL (31.0-37.0); MEAN PLATELET VOLUME 10.8 fL (7.4-10.4); MONOCYTES 7.2 % (2-11); NEUTROPHIL ABS# 4.13 10x3/uL (1.78-5.38); NEUTROPHILS 60.8 % (40-80); RBC 4.38 10x6/uL (4.20-6.10); RDW 12.8 % (11.5-14.5); WBC 6.8 10x3/uL (4.8-10.8)
[2020-09-09 04:23] LABS: PLATELET COUNT 131 10x3/uL (130-400)
[2020-09-09 04:31] LABS: UDS - AMPHET NEGATIVE QUAL (NEGATIVE); UDS - BARB NEGATIVE QUAL (NEGATIVE); UDS - BENZO POSITIVE QUAL (NEGATIVE); UDS - COCAINE NEGATIVE QUAL (NEGATIVE); UDS - OPIATE POSITIVE QUAL (NEGATIVE); UDS - PCP NEGATIVE QUAL (NEGATIVE); UDS - THC POSITIVE QUAL (NEGATIVE)
[2020-09-09 04:31] LABS: CALC OSMOLALITY 280 mosm/kg (275-300); CALCIUM 8.3 mg/dL (8.5-10.1); CARBON DIOXIDE 29.5 mmol/L (21.0-32.0); CHLORIDE - SERUM 104 mmol/L (98-107); GLUCOSE 126 mg/dL (74-106); POTASSIUM - SERUM 3.8 mmol/L (3.5-5.1); SODIUM 140 mmol/L (136-145); UREA NITROGEN 12 mg/dL (7-18); eGFR NON AFRICAN AMERICAN 90 mL/min (90-120)
[2020-09-09 04:45] LABS: ALBUMIN 3.4 g/dL (3.4-5.0); ALKALINE PHOSPHATASE 74 U/L (30-120); ALT (SGPT) 41 U/L (10-68); BILIRUBIN - TOTAL 0.19 mg/dL (0.2-1.3); C-REACTIVE PROTEIN < 0.2 mg/dL (0.0-0.9); LIPASE 95 U/L (73-393); PRO BNP 214 pg/mL (0-125); PROTEIN - SERUM 6.5 g/dL (6.4-8.2); TROPONIN-I < 0.017 ng/mL (0.000-0.060)
[2020-09-09 04:47] LABS: BILIRUBIN NEGATIVE (NEGATIVE); KETONE NEGATIVE (NEGATIVE); NITRITE NEGATIVE (NEGATIVE); UROBILINOGEN NORMAL mg/dL (< 2)
[2020-09-09] MEDS ORDERED: LISINOPRIL20 MG PO (05:17)
[2020-09-09 05:24] VITALS: BP 122/79
== END 2020-09-09 05:25 | disposition home or self-care (01) ==
LOC: D.ER 03:33
PROVIDERS: Family Medicine
DX: R07.89 Other chest pain (principal); I10 Essential (primary) hypertension

== ENCOUNTER 2020-10-07 16:10 | Emergency (ER) | payer MEDICAID ==
[~2020-10-07] VITALS: Ht 180.3 cm; Wt 93.2 kg
[~2020-10-07 16:10] MED LIST changes: +LISINOPRIL10 MG PO; +LISINOPRIL20 MG PO; +ZIAC 10-6.25 MG1 TAB PO
[2020-10-07 16:43] VITALS: BP 114/67; Ht 180.3 cm; Wt 93.2 kg
[2020-10-07] MEDS ORDERED: METOPROLOL TART50 MG PO (16:54)
== END 2020-10-10 21:53 | disposition home or self-care (01) ==
LOC: D.ER 16:10
DX: R00.2 Palpitations (principal); Z76.0 Encounter for issue of repeat prescription

== ENCOUNTER 2020-11-03 16:39 | Emergency (ER) | payer MEDICAID ==
[~2020-11-03] VITALS: Ht 180.3 cm; Wt 90.9 kg
[2020-11-03 16:43] VITALS: BP 95/68; Ht 180.3 cm; Wt 90.9 kg
[2020-11-03] MEDS ORDERED: TORADOL10 MG PO (18:13)
[2020-11-03] MEDS ORDERED: CLEOCIN HCL300 MG PO (18:13)
== END 2020-11-03 19:08 | disposition home or self-care (01) ==
LOC: D.ER 16:39
DX: K02.9 Dental caries, unspecified (principal); Z72.0 Tobacco use

== ENCOUNTER 2020-11-06 06:32 | Emergency (ER) | payer MEDICAID ==
[~2020-11-06] VITALS: Ht 180.3 cm; Wt 90.9 kg
[2020-11-06 06:35] VITALS: BP 99/57; Ht 180.3 cm; Wt 90.9 kg
[2020-11-06] MEDS ORDERED: NORVASC10 MG PO (06:42)
[2020-11-06] MEDS ORDERED: PROTONIX20 MG PO (06:43)
[2020-11-06] MEDS ORDERED: PERCOCET 10-321 EAC1 PO (07:28)
== END 2020-11-06 07:48 | disposition home or self-care (01) ==
LOC: D.ER 06:32
DX: K08.89 Other specified disorders of teeth and supporting structures (principal)

== ENCOUNTER 2020-11-15 23:49 | Emergency (ER) | payer MEDICAID ==
[~2020-11-15] VITALS: Ht 180.3 cm; Wt 90.7 kg
[~2020-11-15 23:49] MED LIST changes: +PROTONIX20 MG PO
[2020-11-15 23:57] VITALS: Ht 180.3 cm; Wt 90.7 kg
[2020-11-16] MEDS ORDERED: CLINDAMYCIN HC300 MG PO (00:49)
[2020-11-16 01:27] VITALS: BP 146/87
== END 2020-11-16 01:27 | disposition home or self-care (01) ==
LOC: D.ER 23:49
DX: K04.7 Periapical abscess without sinus (principal); G89.29 Other chronic pain